=== PATIENT | female | born 1935 | race Caucasian/White ===

== ENCOUNTER 2022-10-26 15:34 | Outpatient (CLI) | payer MEDICARE, OTHER, SELFPAY ==
[2022-10-26 16:49] LABS: Vitamin D 25 Hydroxy 82.4 ng/mL
== END 2022-10-26 15:35 | disposition home or self-care (01) ==
PROVIDERS: PCP Family Medicine; Visit Provider Physician Assistant Medical
DX: E55.9 Vitamin D deficiency, unspecified (principal)
CPT/HCPCS: 36415; 82306

== ENCOUNTER 2023-03-27 07:32 | Outpatient (CLI) | payer MEDICARE, OTHER, SELFPAY ==
[2023-03-27 08:16] LABS: Alanine Aminotransferase 23 U/L (6-35); Albumin Level 4.5 g/dL (3.5-5.1); Alkaline Phosphatase 80 U/L (38-126); Anion Gap 9 mmol/L (8-16); Aspartate Amino Transferase 34 U/L (14-36); Bilirubin,Total 0.7 mg/dL (0.2-1.3); Blood Urea Nitrogen 14 mg/dL (7-17); Calcium 9.6 mg/dL (8.4-10.2); Carbon Dioxide 26 mmol/L (22-30); Chloride 102 mmol/L (98-107); Cholesterol 139 mg/dL (0-200); Estimated Glomerular Filt Rate 60; Glucose 105 mg/dL (65-110); HDL Direct 51 mg/dL; Potassium 3.8 mmol/L (3.4-5.0); Sodium 137 mmol/L (137-145); Triglycerides 150 mg/dL (<150)
[2023-03-27 08:28] LABS: LDL Cholesterol Direct 53 mg/dL
[2023-03-27 08:45] LABS: Vitamin D 25 Hydroxy 41.5 ng/mL
== END 2023-03-27 07:33 | disposition home or self-care (01) ==
PROVIDERS: PCP Family Medicine; Visit Provider Physician Assistant Medical
DX: E78.2 Mixed hyperlipidemia (principal); E55.9 Vitamin D deficiency, unspecified; F41.9 Anxiety disorder, unspecified
CPT/HCPCS: 36415; 80053; 80061; 82306; 84443

== ENCOUNTER 2023-05-06 07:34 | Emergency (ER) | payer MEDICARE, OTHER, SELFPAY ==
[2023-05-06 07:42] VITALS: BP 179/79; PULSE 118; RESP 16
[2023-05-06 07:43] VITALS: TEMP 36.9
--- NOTE | 2023-05-06 07:51 | ED.GIBLEED ---
HPI - GI Bleed General Chief complaint: GI Bleed Stated complaint: RECTAL BLEEDING X1D Time Seen by Provider: 05/06/23 07:38 History of Present Illness HPI Narrative: 87-year-old female presenting to the emergency department for evaluation of a bleeding hemorrhoid. Patient states she does have a history of bleeding hemorrhoids. Patient states she was doing some yd work yesterday and suspect this may have attributed to the exacerbation of the hemorrhoid. Patient denies any associated abdominal pain. Patient states that she did have a bowel movement that did show blood in the bowl and some blood on the stool. Patient states she does have a history of constipation. Patient has had previous surgical treatment of her hemorrhoids. Related Data Home Medications Medication Instructions Recorded Confirmed calcitriol 0.25 mcg capsule 0.25 mcg PO DAILY 09/11/22 04/30/23 pravastatin 20 mg tablet 20 mg PO DAILY 09/11/22 04/30/23 Allergies Allergy/AdvReac Type Severity Reaction Status Date / Time adhesive tape Allergy Severe Blister Verified 04/30/23 10:04 Review of Systems Review of Systems: All systems reviewed & are unremarkable except as noted in HPI and below PMFSH Past Medical History Medical History Anxiety GERD (gastroesophageal reflux disease) Surgical History Surgical History H/O hemorrhoidectomy History of tonsillectomy and adenoidectomy Hx of appendectomy Family History Family History Other Alcoholism Heart disease Hypertension Social History Social History Smoking status: Never smoker Second hand tobacco smoke exposure: No Alcohol intake: never Substance use: never Substance use type: does not use Lack of Transportation: No Lack of Food: Never True Current Housing: I Have Housing Concerned About Future Housing: No Difficulty Paying Gas/Electric Bills: No Difficulty Paying for Meds: No Currently Unemployed: No Education: High School Diploma/GED Difficulty w/ Childcare or Family Care: No Living arrangements: with family Occupation/Education: retired Gender identity (if verbalized by the patient): Female Sexual Orientation (if Verbalized by the Patient): Straight or Heterosexual Spiritual care concerns: No Agree to blood products: Yes Exam Narrative: APPEARANCE: Well appearing, no pain, no distress, well-nourished. HEAD: normocephalic, atraumatic. EYES: PERRLA/EOMI, conjunctivae clear. NOSE: Normal no drainage NECK: Supple. No adenopathy, no masses. RESPIRATORY: Airway patent, respirations nonlabored. Clear to auscultation bilaterally, no rales, rhonchi, wheezing. CARDIOVASCULAR: Regular rate and rhythm without murmurs rubs or gallops. ABDOMINAL: Soft, nontender, nondistended, normal bowel sounds Rectal exam: Non thrombosed external hemorrhoids, no fissure, no active bleeding, no hematochezia and no melena MUSCULOSKELETAL: Moves all extremities. Strength/ROM intact, No edema, No calf tenderness. NEURO: Alert. Cranial nerves II through XII intact. Grossly intact Course Course Emergency Course: 87-year-old female presents to the emergency department for evaluation of rectal bleeding. Upon arrival emergency department patient had no additional rectal bleeding. Physical exam patient did have external hemorrhoids that were nonthrombosed. Patient denies any abdominal pain patient had no tenderness to palpation. Patient is afebrile with no leukocytosis and a stable hemoglobin INR is 1.0 and patient has no acute abnormalities on her CMP. Patient does have a longstanding history of hemorrhoids. Patient was encouraged to follow outpatient hemorrhoid treatment and was encouraged to have close follow-up with GI. All questions and concer
[2023-05-06 08:22] LABS: Basophils Absolute Auto 0.1 K/mm3 (0.0-0.1); Basophils Percent Auto 0.7 % (0.2-1.2); Eosinophils Absolute Auto 0.1 K/mm3 (0-0.3); Eosinophils Percent Auto 1.5 % (0-4.4); Hematocrit 44.4 % (37.0-47.0); Hemoglobin 13.8 g/dL (12.0-15.0); Immature Granulocyte Absolute 0.03 K/mm3 (0.00-0.031); Immature Granulocyte Percent A 0.3 % (0-0.5); Lymphocytes Absolute Auto 2.46 K/mm3 (0.9-3.2); Mean Corpuscular HGB Conc 31.1 g/dl (32-36); Mean Corpuscular Hemoglobin 27.1 pg (26-34); Mean Corpuscular Volume 87.2 fl (80-100); Mean Platelet Volume 11.1 fl (7.4-10.4); Monocytes Absolute Auto 0.6 K/mm3 (0.1-0.6); Monocytes Percent Auto 6.8 % (2.6-8.5); Neutrophils Absolute Auto 5.5 K/mm3 (1.3-6.7); Neutrophils Percent Auto 62.7 % (45.5-73.1); Platelet Count Result 216 k/mm3 (150-375); Red Blood Count 5.09 M/mm3 (4.2-5.4); Red Cell Distribution Width 14.6 % (11.5-14.5); White Blood Count 8.8 K/mm3 (4.5-10.0)
[2023-05-06 08:31] LABS: Alanine Aminotransferase 25 U/L (6-35); Albumin Level 4.4 g/dL (3.5-5.1); Alkaline Phosphatase 92 U/L (38-126); Anion Gap 8 mmol/L (8-16); Aspartate Amino Transferase 34 U/L (14-36); Bilirubin,Total 0.7 mg/dL (0.2-1.3); Blood Urea Nitrogen 12 mg/dL (7-17); Calcium 9.4 mg/dL (8.4-10.2); Carbon Dioxide 24 mmol/L (22-30); Chloride 107 mmol/L (98-107); Estimated CRCL calculation 35 ml/min; Estimated Glomerular Filt Rate > 60; Glucose 118 mg/dL (65-110); Potassium 3.8 mmol/L (3.4-5.0); Sodium 139 mmol/L (137-145)
[2023-05-06 08:45] LABS: Partial Thromboplastin Time 25.1 SECONDS (22.3-36.8)
--- NOTE | 2023-05-06 09:05 | PC.NURSE ---
Patient ambulated to the restroom independently with her walker
[2023-05-06 09:13] VITALS: BP 140/62; PULSE 100; RESP 20; TEMP 36.6; O2SAT 99
== END 2023-05-06 09:20 | disposition home or self-care (01) ==
PROVIDERS: Emergency Provider Emergency Medicine; PCP Family Medicine
DX: K62.5 Hemorrhage of anus and rectum (principal); K64.9 Unspecified hemorrhoids; F41.9 Anxiety disorder, unspecified
CPT/HCPCS: 36415; 80053; 85025; 85610; 85730; 99283

== ENCOUNTER 2023-06-05 09:52 | Outpatient (CLI) | payer MEDICARE, OTHER, SELFPAY ==
--- NOTE | 2023-06-05 17:45 | WPDPFTINT ---
PFT Procedure Performed PFT Procedure Performed Spirometry with Pre/Post Bronchodilator Plethysmography (Lung Vol) Diffusing Cap (DLCO) Flow Vol Loop PFT Interpretation This is a pulmonary function test with pre and post-bronchodilator spirometry, plethysmography and diffusing capacity. The test was performed and results interpreted in accordance with the 2019 and 2005 ATS/ERS Task Force guidelines respectively using the Global Lung Function Initiative-2012 reference equations. Patient demonstrated good effort and cooperation. Reproducibility criteria were met. The quality of the pre bronchodilator spirometry maneuver was Grade A and post bronchodilator spirometry maneuver was Grade A. Findings: Spirometry: The contour the inspiratory and expiratory flow tracing are normal. The pre bronchodilator FVC is 2.33 L, 105% predicted. The pre bronchodilator FEV1 is 1.70 L, 101% predicted. The pre bronchodilator FEV1: FVC ratio 73%. The post bronchodilator FVC is 2.38 L, representing a 2% increase. The post bronchodilator FEV1 is 1.76 L, representing a 4% increase. The post bronchodilator FEV1: FVC ratio 74%. Plethysmography: The total lung capacity is 4.58 L, 97% predicted. The functional residual capacity is 1.70 L, 62% predicted. The residual volume is 1.68 L, 70% predicted. Diffusing capacity: The diffusing capacity unadjusted for hemoglobin and carboxyhemoglobin is 17.0, 95% predicted. The diffusing capacity adjusted for alveolar volume is 4.61, 111% predicted. Impression: The spirometry is normal without evidence of an obstructive abnormality. There is no significant improvement after inhaling a single dose of albuterol. The lung volumes are normal. The diffusing capacity is normal. There are no prior studies for comparison
== END 2023-06-05 09:53 | disposition home or self-care (01) ==
LOC: ANHPFT 09:53
PROVIDERS: PCP Family Medicine; Visit Provider Physician Assistant Medical
DX: R06.00 Dyspnea, unspecified (principal)
CPT/HCPCS: 94060; 94726; 94729

== ENCOUNTER 2023-09-26 07:22 | Outpatient (CLI) | payer MEDICARE, OTHER, SELFPAY ==
[2023-09-26 07:56] LABS: Cholesterol 132 mg/dL (0-200); HDL Direct 52 mg/dL; Triglycerides 134 mg/dL (<150)
[2023-09-26 08:06] LABS: LDL Cholesterol Direct 65 mg/dL
[2023-09-26 08:26] LABS: Vitamin D 25 Hydroxy 47.4 ng/mL
== END 2023-09-26 07:23 | disposition home or self-care (01) ==
LOC: ANHLAB 07:26
PROVIDERS: PCP Family Medicine; Visit Provider Physician Assistant Medical
DX: E55.9 Vitamin D deficiency, unspecified (principal); F41.9 Anxiety disorder, unspecified; I10 Essential (primary) hypertension; E78.2 Mixed hyperlipidemia
CPT/HCPCS: 36415; 80061; 82306

== ENCOUNTER 2024-01-11 11:51 | Emergency (ER) | payer MEDICARE, OTHER, SELFPAY ==
[2024-01-11 12:02] VITALS: BP 151/72; PULSE 89; RESP 19; TEMP 37.5; O2SAT 98
--- NOTE | 2024-01-11 12:06 | ED.URI ---
HPI - URI/Sore Throat General Chief Complaint: Upper Respiratory Infection Stated Complaint: Sinus/Headache Time Seen by Provider: 01/11/24 12:30 Source: patient and RN notes reviewed Mode of arrival: ambulatory Limitations: no limitations History of Present Illness HPI Narrative: 88-year-old female presents with concerns for headache, sinus pressure, sore throat and cough for 2 days. She has not taken anything [id number]. She has not taken her temperature. MD elicited complaint: cough and nasal congestion Related Data Home Medications Medication Instructions Recorded Confirmed calcitriol 0.25 mcg capsule 0.25 mcg PO DAILY 09/11/22 01/11/24 Allergies Allergy/AdvReac Type Severity Reaction Status Date / Time adhesive tape Allergy Severe Blister Verified 01/11/24 11:53 Review of Systems Review of Systems: CONSTITUTIONAL: Denies malaise, chills, sweats, or fever. EYES: Denies visual changes, redness, or discharge. ENT: Reports rhinorrhea, congestion, and sore throat. CARDIOVASCULAR: Denies chest pain, palpitations, or edema. RESPIRATORY: Reports cough. Denies dyspnea. GASTROINTESTINAL: Denies abdominal pain, nausea, vomiting, diarrhea SKIN: Denies rash or itching. MUSCULOSKELETAL: Denies myalgia. NEUROLOGIC: Reports headache. All systems reviewed & are unremarkable except as noted in HPI and below PMFSH Past Medical History Medical History Anxiety GERD (gastroesophageal reflux disease) Surgical History Surgical History H/O hemorrhoidectomy History of tonsillectomy and adenoidectomy Hx of appendectomy Family History Family History Other Alcoholism Heart disease Hypertension Social History Social History Smoking status: Never smoker Second hand tobacco smoke exposure: No Alcohol intake: never Substance use: never Substance use type: does not use Lack of Transportation: No Lack of Food: Never True Current Housing: I Have Housing Concerned About Future Housing: No Difficulty Paying Gas/Electric Bills: No Difficulty Paying for Meds: No Currently Unemployed: No Education: High School Diploma/GED Difficulty w/ Childcare or Family Care: No Living arrangements: with family Occupation/Education: retired Gender identity (if verbalized by the patient): Female Sexual Orientation (if Verbalized by the Patient): Straight or Heterosexual Spiritual care concerns: No Agree to blood products: Yes Comments At time of signature, agree with nursing past medical, surgical, social and family history. There is no relevant family history pertinent to the presenting complaint Exam Narrative: GENERAL: Well-appearing, well-nourished, and in no acute distress. HEAD: Normocephalic EYES: PERRLA, conjunctivae clear ENT: Nares clear, turbinates edematous and erythematous, clear discharge. Mucous membranes moist. TM pearly zepeda with dull light reflex bilaterally; no tragal tenderness. Oropharynx not erythematous without lesions. Tonsils not enlarged and without exudate, no drooling, no hoarseness, no trismus, uvula midline. NECK: Supple. No lymphadenopathy CHEST: Clear to auscultation, breath sounds equal. No wheezing, rhonchi, rales, or stridor. No respiratory distress, speaks in full sentences. HEART: Regular rate and rhythm. No murmur heard. SKIN: Warm, dry, no rash. NEURO: Alert and oriented x3. PSYCH: Normal mood and affect Course Course Emergency Course: Patient is aware of diagnosis, understands and agrees to treatment plan. Anticipatory guidance given. Patient agrees to follow-up as directed and is aware of reasons to seek care at the emergency department. Portions of this record may have been created with selam
[2024-01-11 12:25] LABS: EDSTREPNEGPOS1 Negative (Negative)
[2024-01-11 12:41] LABS: EDCOVIDSCREEN Positive (Negative); EDINFLUASCREEN Negative (Negative); EDINFLUBSCREEN Negative (Negative)
== END 2024-01-11 12:45 | disposition home or self-care (01) ==
PROVIDERS: Emergency Provider Nurse Practitioner; PCP Family Medicine
DX: U07.1 COVID-19 (principal)
CPT/HCPCS: 87081; 87426; 87804; 87880; 99213; G0463

== ENCOUNTER 2024-02-17 09:45 | Outpatient (CLI) | payer MEDICARE, OTHER, SELFPAY ==
--- NOTE | ~2024-02-17 | DEXA_ITS ---
Bone Density Report Name: ARTURO BOWEN Age: 88 Sex: Female Ethnicity: White Date of : 1935 Indication: postmenopausal; screening for osteoporosis; Referring Provider: ASHLY, CARTER [place] Study: Bone densitometry was performed. Exam Date: February 17, 2024 Accession number: [id number] Bone Density: Region BMD T-score Z-score Classification AP Spine(L1-L4) 0.924 -1.1 1.8 Osteopenia Femoral Neck (Left) 0.553 -2.7 -0.1 Osteoporosis Total Hip (Left) 0.733 -1.7 0.6 Osteopenia Femoral Neck (Right) 0.574 -2.5 0.0 Osteoporosis Total Hip (Right) 0.729 -1.7 0.6 Osteopenia Total Hip Mean 0.731 -1.7 0.6 Osteopenia World Health Organization criteria for BMD impression classify patients as: Normal (T-score at or above -1.0), Osteopenia (T-score between -1.0 and -2.5), or Osteoporosis (T-score at or below -2.5). 10-year Fracture Risk: FRAX not reported because: Some T-score for Spine Total or Hip Total or Femoral Neck at or below -2.5 Clinical Information Provided by Patient: Has used the following medications: Vitamin D, Calcium Patient maximum height was 62.0 No regular weight bearing exercise Drinks caffeinated beverages Onset of menses at age 14 Number of children 2 Impression: The patient has osteoporosis, based on the Left Femoral Neck T-score. Discussion: INCREASED RISK OF FRACTURE. BONE DENSITY IS UNDESIRABLY LOW AT ONE OR MORE SKELETAL SITES, CONSISTENT WITH POSTMENOPAUSAL OSTEOPOROSIS. This patient's lowest T-score meets the World Health Organization's (WHO) criteria for osteoporosis at one or more sites (T-score -2.5 or below). In untreated patients, the risk of osteoporotic fracture increases approximately two-fold for each 1.0 SD decrease in T-score. Low bone density is not the only risk factor for fracture; also consider factors such as patient's age, frailty or poor health, risk of falling, risk of injury, previous osteoporotic fracture, family history of osteoporosis, cigarette smoking, low body weight, etc. Not everyone with low bone mineral density has osteoporosis; osteomalacia and other metabolic bone disorders should also be considered. Patients who have osteoporosis should be evaluated for specific diseases and conditions (secondary causes) that may cause or contribute to bone loss. The [place] Association of Clinical Endocrinologists (AACE) and National Osteoporosis Foundation (NOF) recommend pharmacologic intervention for all postmenopausal women whose T-score is in this range. The patient should follow a healthful lifestyle (good nutrition with adequate calcium and vitamin D, and appropriate weight-bearing exercise). Follow-Up: Consider a repeat BMD and Vertebral Fracture Assessment (VFA) exam in 2 years or sooner if medically necessary, to reassess this patient's status. Reported by: REYES on 02/17/2024 10:25:00 AM. Reviewed, dictated and finalized at location A. HAROON
== END 2024-02-17 09:46 | disposition home or self-care (01) ==
LOC: ANHIMG 09:47
PROVIDERS: PCP Family Medicine; Visit Provider Physician Assistant Medical
DX: N95.1 Menopausal and female climacteric states (principal); M81.0 Age-related osteoporosis without current pathological fracture; M85.89 Other specified disorders of bone density and structure, multiple sites
CPT/HCPCS: 77080

== ENCOUNTER 2024-06-12 07:49 | Outpatient (CLI) | payer MEDICARE, OTHER, SELFPAY ==
--- OUTSIDE RECORDS SUMMARY | 2024-06-12 07:55 | XMS_ITS | Referral Summary ---
Author Organization [facility] [address] Address [address] [place] [address] Care Team Providers Care Office Cleaner Name Role Phone Alisia Cotto MD Primary Care Provide r Allergies Active Allergy Reactions Criticality Noted Date Comments Penicillin Hives High 04/10/2022 Medications calcitRIOL (ROCALTROL) 0.25 mcg capsule TAKE 1 CAPSULE BY MOUTH EVERY DAY FOR 90 DAYS 3 Active cetirizine (ZyrTEC) 10 mg tablet Take 1 tablet (10 mg total) by mouth daily 3 Active clonazePAM (KlonoPIN) 1 mg tablet Take by mouth 2 (two) times a day as needed 3 Active dilTIAZem CD 120 mg 24 hr capsule Take by mouth daily 3 Active ergocalciferol (VITAMIN D) 50,000 unit capsule TAKE 1 CAPSULE BY MOUTH ONCE A WEEK FOR 90 DAYS 3 Active furosemide (LASIX) 20 mg tablet Take 1 tablet (20 mg total) by mouth daily 3 Active losartan (COZAAR) 50 mg tablet Take 1 tablet (50 mg total) by mouth daily 3 Active meclizine (ANTIVERT) 25 mg tablet TAKE 1 TABLET BY MOUTH EVERY DAY NEEDED FOR 90 DAYS [address] (PROTONIX) 40 mg EC tablet pantoprazole 40 mg tablet,delayed release (DR/EC) 0 Active Klor-Con M10 10 mEq CR tablet Take 2 tablet/capsule (20 mEq total) by mouth daily 3 Active pravastatin (PRAVACHOL) 20 mg tablet Take 1 tablet (20 mg total) by mouth daily 3 Active Active Problems Problem Noted Date Diagnosed Date Balance problem 07/16/2022 Sensorineural hearing loss (SNHL) of both ears 0 07/16/2022 Social History Tobacco Use Types Packs/Day Years Used Date Smoking Tobacco: Never Smokeless Tobacco: Never Tobacco Cessation:Counseling Given: Not Answered Comments Unknown Sex and Gender Information Value Date Recorded Sex Assigned at Not on file Legal Sex Female 10:13 AM CDT Gender Identity Not on file Sexual Orientation Not on file Last Filed Vital Signs Vital Sign Reading Time Taken Comments Blood Pressure - - Pulse - - Temperature - - Respiratory Rate 18 07/16/2022 1:16 PM CDT Oxygen Saturation - - Inhaled Oxygen Concentration - - Weight 56.7 kg (125 lb) 07/16/2022 1:16 PM CDT Height 154.9 cm (5' 1 ) 07/16/2022 1:16 PM CDT Body Mass Index 23.62 07/16/2022 1:16 PM CDT Plan of Treatment Not on file Insurance MEDICARE Care Teams Office Cleaner Relationship Specialty Start Date End Date Alisia Cotto MD [address] [address] PCP - General Internal Medicine 07/04/22
--- OUTSIDE RECORDS SUMMARY | 2024-06-12 07:55 | XMS_ITS | Patient Health Record ---
Author Organization [facility] Billing Info Address [address] [place] [address] [place] [address] Care Team Providers Care Community Health Advocate Name Role Phone RADHA BARBARA Primary Care Provider [phone] Allergies Allergen (clinical drug ingredient) Drug/Non Drug Allergy documented on EMR Reaction Allergy Type Onset Date Status Penicillin intolerance Drug Allergy Acti ve Reason For Referral No Information Medications Medication SIG (Take, Route, Frequency, Duration) Notes Start Date End Date Status Klor-Con 10 10 MEQ 1 tab(s) Orally TID for 90 days Active Pravastatin Sodium 20 MG 1 tablet Orally QD for 90 days Active Losartan Potassium 50 MG 1 tablet Orally QD for 30 days Active Vitamin D3 5000 UNIT 1 tablet Orally QD Active Chlorthalidone 25 MG 1 tab(s) Orally QD for 90 days Active Clonazepam 1 MG 1 tablet Orally BID prn anxiety for 30 days Active Spironolactone 25 MG 0.5 tablet Orally Q D for 90 days Active Fish Oil 1 cap QD Active CoQ-10 1 tab QD Active Vitamin B-12 5000 MCG 1 tablet Orally QD Active Multivitamin 1 tab QD Active Diltiazem HCl ER Coated Beads 120 MG TAKE ONE CAPSULE BY MOUTH EVERY DAY for 30 Active Valacyclovir HCl 500 MG 1 tab Orally BID PRN cold sore for 30 days Active Social History Tobacco Use: Social History Observation Description Date Details (start date - stop date) Never Smoker NA - NA Tobacco Status: Question Answer Notes Patient is a never smoker Problems Problem Type SNOMED Code ICD Code Onset Dates Problem Status W/U Status Risk Notes Problem 179344458 Mixed hyperlipidemia (E78.2) Active confirmed Problem 21356883 Essential hypertension (I10) Active confirmed Problem 087621159 Dyslipidemia (E78.5) Active confirmed Problem Long-term current use of drug therapy (384922189) Encounter for long-term current use of medication (Z79.899) Active confirmed Problem 821487517 Chronic anxiety (F41.9) Active confirmed Problem 866327164 Primary osteoarthritis involving multiple joints (M15.0) Active confirmed Problem 711220338 BMI 26.0-26.9,adult (Z68.26) Active confirmed Plan Of Treatment No Information Insurance Providers Payer Name Payer Address Payer Phone Subscriber Number Group Number Insured Name Patient Relationship to Insured Coverage Start Date Coverage End Date [place] [address] [address] [place], [place] [id number] Saskia Randle Self - patient is the insured 3 8 AETNA NON HMO [address] [place], [place] [id number] Saskia Randle Self - patient is the insured 7 8 Medical (General) History Medical History History ICD Code Primary osteoarthritis involving multipl e joints Mixed hyperlipidemia Essential (primary) hypertension Generalized anxiety disorder Surgical History Surgery Date(Month/Year) appendectomy 1950 tonsillectomy 1950 hemorrhoidectomy Hardware placed in cervial spine 2002
--- OUTSIDE RECORDS SUMMARY | 2024-06-12 07:55 | XMS_ITS | Patient Health Record ---
Author Organization [facility] Address [address] [facility] [address] [facility] [address] [place] [address] REASON FOR REFERRAL No Information MEDICATIONS Medication SIG (Take, Route, Fr equency, Duration) Notes Start Date End Date Status Protonix 40 MG 1 tablet Orally Once a day for 90 days 02/09/2022 Active Meclizine HCl 25 MG 1 tablet as needed O rally once a day for 90 days 02/09/2022 Active Calcitriol 0.25 MCG TAKE 1 CAPSULE BY MO [facility] EVERY DAY for 90 Active SOCIAL HISTORY Sex Assigned At : Social History Observation Description Sex Assigned At Female PROBLEMS Problem Type ICD Code Onset Dates Problem Status W/U Status Risk SNOMED Code Notes Problem Hyperlipidemia, unspecified (E78.5) Active confirmed Hyperlipidemia (40034608) Problem Essential (primary) hypertension (I10) Active confirmed Essential hypertension (71197014) Problem Chronic kidney disease, stage 2 (mild) (N18.2) Active confirmed Chronic kidne y disease stage 2 (944011925) Problem Renal osteodystrophy (N25.0) Active confirmed Renal osteodystrophy (41213062) PLAN OF TREATMENT No Information
--- OUTSIDE RECORDS SUMMARY | 2024-06-12 07:55 | XMS_ITS | Data Portability ---
Author Organization [facility], [facility], [place] Address [address] [place] [address] Assessment No assessment recorded. Plan of Treatment Reminders Order Date Submit Date Provider Last Modified By Organization Details Last Modified Time Details Appointments None record ed. Lab None record ed. Referral None record ed. Procedures None record ed. Surgeries None record ed. Imaging None record ed. Medication Orders None record ed. Patient TargetsNo targets recorded. Patient InstructionsNo instructions recorded. Reason for Referral None Reported. Procedures Surgical History Date Name Laterality Status Provider Name and Address Organization Details Recorded Time 03/03/20 19 STATION ENGINEER Voice Treatment - E completed Talisha Pena MA, [address], [address], [place] - [facility], [facility] 03/05/2019 17:57:42 02/19/20 19 STATION ENGINEER Voice Treatment - D completed Talisha Pena MA, [address], [address], [facility] - [facility], [facility] 02/22/2019 15:00:17 02/12/20 19 STATION ENGINEER Voice Treatment - C completed Talisha Pena MA, [address], [address], [place] - [facility], [facility] 02/22/2019 14:55:26 02/04/20 19 STATION ENGINEER Voice Treatment - B completed Talisha Pena MA, [address], [address], [place] - [facility], [facility] 02/22/2019 14:50:59 01/23/20 19 STATION ENGINEER Voice Treatment - B completed Talisha Pena MA, [address], [address], [place] - [facility], [facility] 02/22/2019 14:45:55 01/15/20 19 STATION ENGINEER Voice Treatment - A completed Talisha Pena MA, [facility]STATION ENGINEER [address] [place] [address], [address], [facility] [place] [facility], [facility] 02/22/2019 14:41:32 12/18/19 19 STATION ENGINEER Perceptual Voice Evaluation completed Talisha Pena MA, [address], [address], [facility] [place] [facility], [facility] 12/19/2018 11:29:43 12/18/19 19 STATION ENGINEER Videostroboscopy Exam completed Talisha Pena MA, [address], [address], [facility] [place] [facility], [facility] 12/19/2018 11:31:52 12/12/19 19 Fiberoptic Laryngoscopy (Comprehensive) completed [facility], [facility] 12/11/2018 14:26:12 Imaging Results None recorded. Procedure Notes None recorded. Medical Equipment None Reported. Allergies Allergen ID Allergen Name Allergen Category Reaction Reaction Severity Criticality Documentation Date Start Date Code Code System Note Provider Name and Address Organization Details Recorded Time 335293 Product containin g penicilli n (product) medicatio n Not available Not available Not available 12/11/2018 97228 8001 SNOMED Not Available Not Available Not Available Medications Name Sig Start Date Stop Date Status Note LastModified by Organization Details LastModified Time losartan 50 mg tablet active Not Available Not Available Not Available azithromycin 250 mg tablet active Not Available Not Available Not Available ranitidine 300 mg tablet active Not Available Not Available Not Available simvastatin 10 mg tablet active Not Available Not Available Not Available clonazepam 1 mg tablet active Not Available Not Available Not Available chlorthalidone 25 mg tablet active Not Available Not Available No t Available valacyclovir 500 mg tablet active Not Available Not Available Not Available spironolactone 25 mg tablet active Not Available Not Available No t Available benzonatate 100 mg capsule active Not Available Not Available Not Available cephalexin 500 mg capsule active Not Available Not Available Not Available diltiazem CD 120 mg capsule,extended release 24 hr active Not Available Not Availabl e Not Available pravastatin 20 mg tablet active Not Available Not Available Not Available methylprednisolone 4 mg tablets in a dose pack active Not Available Not Available No t Available fluticasone propionate 50 mcg/actuation nasal spray,suspension active Not Available Not Avail able Not Available Klor-Con M10 mEq tablet,extended release active Not Available Not Available Not Available Vitals None Recorded Social History Question Answer Notes LastModified by Organizat ion Details LastModified Time Tobacco Smoking Status Never Smoker [facility] - [facility], [facility] 12/11/2018 14:13:14 What Is Your Level Of Alcohol Consumption? None [email or web address] Information not available 12/11/2018 Sex: Unknown Functional Status None recorded. Mental Status None recorded. Family History Nothing Reported. Medical History Condition Response Heart Disease/Disorder (NC, CAD) N Anxiety/Depression N Anemia/Bleeding disorders N Tonsil problems N Vision Problems (Glaucoma/Cataracts) N Nasal/Sinus Problems N Thyroid Problems N COPD/Emphysema/Lung Disorder N Ear Infections N GI Problems N Stroke-TIA N Transfusion(s)/Transplant(s) N MRSA exposure N Kidney Disease/Disorder N Anesthesia Complications N Headaches/Migraines N Reflux (GERD) N Diabetes N Behavior disorders (ADD/ADHD) N Arthritis N Hearing Loss N Seizures/Epilepsy N Other PMH N Cancer N Tinnitus N Meniere's N Asthma N Alzheimer's/Dementia N Blood Diseases (Hepatitis/TB/HIV) N Mental Disorder/Illness N High Cholesterol N Sleep Disorder N Liver Disease N Fibromyalgia N Hypertension N Allergies/Immune disorder N Speech Delay N Pneumonia/PE/Bronchitis N Gynecological HistoryNo gynecological history recorded. Obstetrics History GPAL:G 0 P 0 0 0 0 Past Encounters Encounter ID Performer Location Encounter Start Date Encounter Closed Date Diagnosis/Indication Diagnosis SNOMED-CT Code Diagnosis ICD10 Code Diagnosis Note [id number] [facility] [place] [address] [place] [address] 12/11/2018 13:18:03 12/11/2018 19:17:32 Chronic hoarseness 8869276179 105 R49.0 Saskia is here with hoarseness . This has appeared in the last year. She is having no trouble with swallowing . 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 We discussed speech therapy. i do not feel she is a candidate for vocal cord injection at this time. there are no masses or vocal nodules or polyps. 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 0 5707129 J38.7 [id number] [facility] [place] [address] [place] [address] 12/17/2018 13:41:54 12/23/2018 11:20:57 On examination - dysphonia 260000429 R49.0 Bowing of vocal cord 232 025541 J38.3 [id number] Talisha Pena MA, [facility] [address] [place] [address] 01/14/2019 10:35:26 02/23/2019 18:45:40 On examination - dysphonia 895508773 R49.0 Bowing of vocal cord 232 190747 J38.3 [id number] Talisha Pena MA, [facility] [address] [place] [address] 01/22/2019 10:41:12 02/23/2019 18:46:13 On examination - dysphonia 529883421 R49.0 Bowing of vocal cord 232 168059 J38.3 [id number] Talisha Pena MA, [place] [address] [place] [address] 02/03/2019 10:52:02 02/23/2019 18:46:39 On examination - dysphonia 495816119 R49.0 Bowing of vocal cord 232 073300 J38.3 [id number] Talisha Pena MA, [facility] [address] [place] [address] 02/11/2019 11:43:28 02/23/2019 18:47:03 On examination - dysphonia 816669178 R49.0 Bowing of vocal cord 232 417362 J38.3 [id number] Talisha Pena MA, [facility] [address] [place] [address] 02/18/2019 10:41:49 02/23/2019 18:47:33 On examination - dysphonia 994954992 R49.0 Bowing of vocal cord 232 455120 J38.3 [id number] Talisha Pena MA, [facility] [address] [place] [address] 03/03/2019 11:41:05 03/09/2019 17:34:11 On examination - dysphonia 557658642 R49.0 Bowing of vocal cord 232 430230 J38.3 Health Concerns Section Related Observation LastModified by Organization Detai ls LastModified Time None Recorded Concern Status LastModified by Organization Details LastModified Time None Recorded Advance Directives Directive None Recorded Payers Encounter Date Sequence Insurance Name Policy Number Policy Cooney Covered Member ID Cooney Member ID Guarantor Name 01/22/2019 1 [place] Saskia Randle [id number] Saskia Boyd Randle 01/22/2019 2 [employer] [id number] Saskia Boyd Randle [id number] Saskia Boyd Randle 02/03/2019 1 [place] Saskia Boyd Randle [id number] Saskia Boyd Randle 02/03/2019 2 [employer]ETNA [id number] Saskia Randle [id number] Saskia Boyd Randle 02/11/2019 1 [place] Saskia Randle [id number] Saskia Boyd Randle 02/11/2019 2 [employer] [id number] Saskia Boyd Randle [id number] Saskia Boyd Randle 02/18/2019 1 [place] Saskia Boyd Randle [id number] Saskia Boyd Randle 02/18/2019 2 [employer] [id number] Saskia Boyd Randle [id number] Saskia Boyd Randle 03/03/2019 1 [place] Saskia Randle [id number] Saskia Boyd Randle 03/03/2019 2 [employer]ET[employer] [id number] Saskia Boyd Randle [id number] Saskia Randle OBGyn Episode No OBEpisode recorded.
--- OUTSIDE RECORDS SUMMARY | 2024-06-12 07:55 | XMS_ITS | Clinical Summary ---
Author Organization [facility] [address] Address [address] [place] [address] Care Team Providers Care Brush Sander Name Role Phone Alisia Cotto MD Primary [...] loss (SNHL) of both ears 0 07/16/2022 Surgical History Surgery Date Site/Laterality Comments APPENDECTOMY 04/01/1949 - 03/31/1950 TONSILLECTOMY 04/01/1950 - 03/31/1951 Bilateral HEMORROIDECTOMY 04/01/1973 - 03/31/1974 Medical History Medical History Date Comments Hypertension Family History Medical History Relation Name Comments Cancer Brother Heart disease Father Relation Name Status Comments Brother Father Social History Tobacco Use Types Packs/Day Years Used Date Smoking Tobacco: Never Smokeless Tobacco: Never Tobacco Cessation:Counseling Given: Not Answered Comments Unknown Sex and Gender Information Value Date Recorded Sex Assigned at Not on file Legal Sex Female 10:13 AM CDT Gender Identity Not on file Sexual Orientation Not on file Obstetrics History Last Filed Vital Signs Vital Sign Reading [...] 07/16/2022 1:16 PM CDT Plan of Treatment Health Maintenance Due Date Last Done Comments Depression Screening 1935 Fall Risk Assessment 1935 DTaP/Tdap/Td Vaccine (1 - Tdap) 1946 Hepatitis B Screening 09/22/1955 Well Visit 65+ 2002 Zoster Vaccine (2 of 2) 03/15/2022 01/18/2022 Covid-19 Vaccine (5 - 2023-2 5 season) 2023 09/12/2021, 09/12/2021, 05/15/2021, Additional history exists Influenza Vaccine (#1) 2023 01/10/2022 Pneumococcal vaccine 65+ Completed 01/10/2022 Insurance [facility] MEDICARE Care Teams Brush Sander Relationship Specialty Start Date End Date Alisia Cotto MD [address] [place] [address] PCP - General Internal Medicine 07/04/22
--- OUTSIDE RECORDS SUMMARY | 2024-06-12 07:55 | XMS_ITS | CONTINUITY OF CARE DOCUMENT ---
Author Name shantanu fournier Address Unknown Organization [facility] Address [address] [facility] [address] [place] [address] Phone [phone] Care Team Providers Care Supervisor Winding Department Name Role Phone Titus PELAEZ, Gloria Unavailable [phone] DOROTEO VALDES MD Unavailable [phone] DOROTEO VALDES MD Unavailable [phone] PROBLEMS Condition Status Date Provider Notes Hyperlipidemia active Alan Ahmedzai Essential hypertension active Alan Ahmedzai CKD active Alan Ahmedzai Hypothyroidism active Alan Ahmedzai Leg edema, bilateral active Alan Ahmedzai Shortness of breath active Alan Ahmedzai ENCOUNTERS Date Type Provider Location Encounter Diagnosis - In-person encounter Office Visit Gloria Qureshi MD [place] [facility] Shortness of breath VITAL SIGNS Date Observation Value Provider Body Mass Index (Ratio) 25.51 kg/m2 Fuad Qureshi MD blood pressure, diastolic 73 mm[Hg] [facility] Block blood pressure, systolic 140 mm[Hg] Gigi Block oxygen saturation, oximetry 99 % Jayla Block pulse rate 83 /min Jayla Block respiratory rate E&M 16 /min Jayla Rizzo phi height E&M 61 [in_i] Jayla Block weight E&M 135 [lb_av] Jayla Block ALLERGIES Allergy Name Onset Date Reaction Criticality Status PENICILLIN High Criticality active HISTORY OF MEDICATION USE Medication Status Instructions Dates Provider Indications Com marilyn Arellano M10 10 mEq tablet,ER particles/crystals active Jayla Block furosemide 20 mg tablet active Jayla Block meclizine 25 mg tablet active Jayla Block pantoprazole 40 mg tablet,delayed release (DR/EC) active Jayla Blokc pravastatin 20 mg tablet active Jayla Block calcitriol 0.25 mcg capsule active Jayla Block ergocalciferol (vitamin D2) 1,250 mcg (50,000 unit) capsule active Jayla Block clonazepam 1 mg tablet active Jayla Block diltiazem HCl 120 mg capsule,extended release 24hr active Jayla Block losartan 50 mg tablet active Jayla Block SOCIAL HISTORY Date Observation Value Provider social history E&M S moking History: P atrobby has never smoked. Alan Amaya passive cigarette smoke exposure no Jayla Block chewing tobacco use Never Jayla Murphy vis smoking status Never smoker Jayla Block social history reviewed E&M revi ewed - no changes required Alan Amaya INSURANCE PROVIDERS Payer name Policy type / Coverage type [place] red green party ID [employer] Choice Pos II [employer]al[employer] K.K insurance Tremor Video [id number] [place] MEDIC[place] Medicare [id number] ADVANCE DIRECTIVES Name Date DISCUSSED - NO DECISION MADE TREATMENT PLAN Date Name Performer [id number],SAlan i [id number],SAlan i [id number],SAlan i [id number],SAlan i [id number],SAlan i [id number],SAlan i Cardiology Alan Amaya Cardiology Alan Amaya Cardiology Alan Greeni Cardiology Alan Branchmedzai Cardiology Alan Branchmedhowie Cardiology Alan rene Date Name Venous Doppler Bilat eral LE - Reflux Stress Regadenoson Complete Echo Venous Doppler Bilat eral LE - Reflux HISTORY OF PROCEDURES Procedure Date Procedure Name Provider Procedure Notes S tatus EKG Gloria Qureshi MD completed
[2024-06-12 08:15] LABS: Alanine Aminotransferase 21 U/L (6-35); Albumin Level 4.3 g/dL (3.5-5.1); Alkaline Phosphatase 86 U/L (38-126); Anion Gap 8 mmol/L (4-12); Aspartate Amino Transferase 27 U/L (14-36); Bilirubin,Total 0.6 mg/dL (0.2-1.3); Blood Urea Nitrogen 14 mg/dL (7-17); Carbon Dioxide 29 mmol/L (22-30); Chloride 101 mmol/L (98-107); Cholesterol 133 mg/dL (0-200); Estimated Glomerular Filt Rate 52; Glucose 97 mg/dL (65-110); HDL Direct 47 mg/dL; Potassium 3.8 mmol/L (3.4-5.0); Sodium 138 mmol/L (137-145); Triglycerides 206 mg/dL (<150)
[2024-06-12 08:26] LABS: LDL Cholesterol Direct 52 mg/dL
== END 2024-06-12 07:50 | disposition home or self-care (01) ==
PROVIDERS: PCP Family Medicine; Visit Provider Student in an Organized Health Care Education/Training Program
DX: E78.5 Hyperlipidemia, unspecified (principal); I10 Essential (primary) hypertension
CPT/HCPCS: 36415; 80053; 80061

== ENCOUNTER 2024-09-11 12:09 | Outpatient (CLI) | payer MEDICARE, OTHER, SELFPAY ==
--- OUTSIDE RECORDS SUMMARY | 2024-09-11 12:13 | XMS_ITS | Referral Summary ---
Author Organization [facility] [address] Address [address] [place] [address] Care Team Providers Care Research Attorney Name Role Phone Alisia Cotto MD Primary [...] 1:16 PM CDT Height 154.9 cm (5' 1) 07/16/2022 1:16 PM CDT Body Mass Index 23.62 07/16/2022 1:16 PM CDT Plan of Treatment Not on file Insurance MEDICARE Care Teams Research Attorney Relationship Specialty Start Date End Date Alisia Cotto MD [address] [address] PCP - General Internal Medicine 07/04/22
--- OUTSIDE RECORDS SUMMARY | 2024-09-11 12:13 | XMS_ITS | Clinical Summary ---
Author Organization [facility] [address] [place] [address] Care Team Providers Care Candy Spreader Name Role Phone Alisia Cotto MD Primary [...] 09/12/2021, 05/15/2021, Additional history exists Influenza Vaccine (Season Ended) 2024 01/11/20 Pneumococcal vaccine 65+ Completed 01/10/2022 Insurance [facility] MEDICARE Care Teams Candy Spreader Relationship Specialty Start Date End Date Alisia Cotto MD [address] [place] [address] PCP - General Internal Medicine 07/04/22
--- OUTSIDE RECORDS SUMMARY | 2024-09-11 12:13 | XMS_ITS | Continuity of Care Document ---
Author Organization [facility] Address [address] [place] [address] Phone Care Team Providers Care Family Therapist Name Role Phone Unavailable Unavailable Unavailable Allergies, Adverse Reactions, Alerts Substance Reaction Status Criticality Penicillins itching Active No Information Medications Medication Instructions Dosage Effective Dates (start - stop) Status Comments losartan-hydrochlorothia zide 50 mg-12.5 mg tablet 1 tablet daily - Active Thera Tears 0.25 % drops in a dropperette 1 gtt ou QID and prn - Active Diltia XT 120 mg capsule, extended release take 1 capsule by oral route every day - Active CLONAZEPAM 1 mg ORAL TABLET take 1 tablet by oral route in AM and 1/2 tab at HS - Active cholecalciferol (vitamin D3) 5,000 unit capsule daily - Active B Complex 100 100 mg-2 mg-100 mg-2mg-2mg/mL Injectable Solution 1 daily - Active CALCIUM CARBONATE/VITAMIN D3 600 mg calcium (1,500 mg)-800 unit ORAL T daily - Active Procedures Procedure Date <content [...] Diagnoses Date Provider Providers Copied on Encounter [facility], [address], [place], [place], [address], [place] tel:[phone] [facility] visual field and recheck (chief complaint) Ptosis Of Eyelid Nos 5 No Information [facility], [address], [place], [place], [address], [place] tel:[phone] [facility] Visual field and lid evaluation (chief complaint) Ptosis Of Eyelid NosLens Replacement Nec 4 No Information [facility], [address], [place], [place], [address], [place] tel:[phone] [facility] No Information 4 No Information [facility], [address], [place], [place], [address], [place] tel:[phone] [facility] No Information 4 No Information [facility], [address], [place], [place], [address], [place] tel:[phone] [facility] No Information 4 No Information [facility], [address], [place], [place], [address], [place] tel:[phone] [facility] No Information 4 No Information [facility], [address], [place], [place], [address], [place] tel:[phone] [facility] No Information 4 No Information [facility], [address], [place], [place], [address], [place] tel:[phone] [facility] No Information 4 No Information [facility], [address], [place], [address], [place] tel:[phone] [facility] Ptosis Of Eyelid Nos 4 No Information [facility], [address], [place], [place], [address], [place] tel:[phone] [facility] No Information 4 No Information [facility], [address], [place], [place], [address], [place] tel:[phone] [facility] Lens Replacement Nec 4 No Information Offic/outpt [facility], [address], [place], [place], [address], [place] tel:[phone] [facility] Ptosis Of Eyelid Nos 4 Anabell Klein. [address], [place], [address], [place]. tel:[phone] Referring Provider: Latoya Rodas, [address], [place], [address]. tel:[phone] Family History Family Member Type Diagnosis Age At Onset Half brother (M) Problem (finding) Heart disease Payers Payer name Insurance type Covered libertarian ID Authoriza tion(s) [place] [id number] [employer] Open Access Plus CI [id number] Social History Type Description Quantity Date Captured [...] have levatror repair OU on 06/23/[address] [facility]. Related to Ptosis Of Eyelid Nos [...] Related to Ptosis Of Eyelid Nos - I am going to orde r [...] surgery. Related to Ptosis Of Eyelid Nos - Stable. Related to Lens Replacement Nec Assessments Type Assessment Date No Information Patient Care Teams Name Effective Dates (start - stop) Status Members No Information
--- OUTSIDE RECORDS SUMMARY | 2024-09-11 12:14 | XMS_ITS | Patient Health Record ---
Author Organization [facility] Billing Info Address [address] [place] [address] [place] [id number] Care Team Providers Care Continuous Miner Operator Name Role Phone RADHA BARBARA Primary Care Provider Allergies Allergen (clinical drug ingredient) Drug/Non Drug [...] Problem Status W/U Status Risk Notes Problem 481029533 Mixed hyperlipidemia (E78.2) Active confirmed Problem 61954476 Essential hypertension (I10) Active confirmed Problem 173225160 Dyslipidemia (E78.5) Active confirmed Problem Encounter for long-term current use of medication (Z79.899) Active confirmed Problem 554035613 Chronic anxiety (F41.9) Active confirmed Problem 737111998 Primary osteoarthritis involving multiple joints (M15.0) Active confirmed Problem 870184645 BMI 26.0-26.9,ad ult (Z68.26) Active confirmed Plan Of Treatment No Information Insurance Providers Payer Name Payer Address Payer Phone Subscriber Number Group Number Insured Name Patient Relationship to Insured Coverage Start Date Coverage End Date [place] [address] [address] [place], [place] [id number] Saskia Randle Self - patient is the insured 3 8 [employer] NON HMO [address] [place], [place] [id number] Saskia Randle Self - patient is the insured 7 8 Medical (General) History Medical History History ICD Code Primary osteoarthritis involving multipl e joints Mixed hyperlipidemia Essential (primary) hypertension Generalized anxiety disorder Surgical History Surgery Date(Month/Year) Hardware placed in cervial spine 2002 hemorrhoidectomy tonsillectomy 1950 appendectomy 1950
--- OUTSIDE RECORDS SUMMARY | 2024-09-11 12:14 | XMS_ITS | Data Portability ---
Author Organization [facility] [place], Main Office Address [address] [place] [address] Care Team Providers Care Aerospace Project Manager Name Role Phone SYLVESTER COTTO Primary Care Provider [phone] SYLVESTER COTTO Referring Provider Assessment Encounter Date Assessment Date Assessment LastModified by Organization Details LastModified Time 07/17/2022 07/17/2022 04/17/2022: VIT D/CBC WNL FT4/TSH WNL TG 165 CMP: Alb 4.5H, TP WNL [email or web address] Not available 07/17/2022 10:01:10 08/14/2022 08/14/2022 This note is dictated and transcribed by [employer]. Timber Watchman variances may occur. Despite proofreading, typographical errors may occur. [email or web address] Not available 08/14/2022 12:03:05 Plan of Treatment Reminders Order Date Submit Date Provider Last Modified By Organization Details Last Modified Time Details Appointments None recorded . Lab lipid panel, serum 023 07/18/[address] (Lab), [address] [place], [address], 3 14:24:07 CBC w/ auto diff 023 07/18/[address] (Lab), [address] [place], [address], 3 14:24:07 CMP, serum or plasma 023 07/18/[address] (Lab), [address] [place], [address], 3 14:24:08 T4, free, serum 023 07/18/[address] (Lab), [address] [place], [address], 3 14:24:08 TSH, serum or plasma 023 07/18/[address] (Lab), [address] [place], [address], 3 14:24:08 Referral None recorded . Procedures None recorded . Surgeries None recorded . Imaging None recorded . Medication Orders None recorded . Patient TargetsNo targets recorded. Patient Instructions Encounter Date Encounter Id Patient Instructions Last Modified By Organization Details Last Modified Time 07/17/2022 [id number] dementia rating scale-2* [email or web address] Not available 07/17/2022 10:52:55 depression screening* [email or web address] Not available 07/17/2022 10:52:55 alcohol misuse* [email or web address] 2 Not available 07/17/2022 10:52:55 multi-dimensiona l health assessment questionnaire* [email or web address] Not available 07/17/2022 10:52:55 Personalized a [facility] Plan and Screening Recommendations Advance Directives - Do you have one? Yes Advance Directives - Do we have your advance directive on file in your health record? No, please bring in a copy at your earliest convenience Primary Prevention/Interven tion (prevents or decreases the chance of common diseases from occurring) Smoking Risk: Non Smoker I have no recommendations. Alcohol Misuse Screening: Negative I have no recommendations. Weight: Appropriate Physical activity: Appropriate physical activity Nutrition: Good Fall Risk (screened today): High Refer to attached handout Preventing Falls: After your Visit Vaccines Pneumococcal: No further needed Influenza: Your next one in the fall of this year Chronic Disease Risks Stroke: Intermediate Risk Continue current treatment plan Heart Attack: Intermediate Risk Continue current treatment plan Clogging of the Arteries: Intermediate Risk Continue current treatment plan Diabetes: Active diagnosis, Continue current treatment plan Secondary Prevention/Interven tion (detects treatable diseases before they may cause symptoms, disability, or ) Breast Cancer Screening with mammogram: No screening necessary Cervical/Uterine/Ov candice Cancer Screening: No screening necessary Osteoporosis Screening: No screening necessary Date Screening Last Performed: 01/12/2022 Colon Cancer Screening: Colonoscopy No screening necessary Date Screening Last Performed: Eye Disease Screening: No Eye exam necessary Dementia Risk: Low I have no recommendations Depression Screening: Negative I have no recommendations. Not available 07/17/2022 10:44:02 Reason for Referral None Reported. Results Created Date Observation Date Name Description Value Unit Range Abnormal Flag Note LastModifiedBy Organization Detail LastModifiedTime 01/06/2001/05/2022 FOLAT E, SERUM /PLAS MA folate 19.6 NG/mL 2.76-2 0.0 Not Available [facility] (Lab) [address] [place], [address], 01/05/2022 13:09:53 01/06/2001/05/2022 VITAM IN B12 (SELENA HARLEEN ) vb12 962 pg/mL 239-93 1 high Not Available [facility] (Lab) [address] [place], [address], 01/05/2022 13:09:51 01/06/2001/05/2022 VITAM IN D 25-HY DROXY vd25oh 47.9 NG/mL 30-100 Vitam in D Statu s: Defic ient: <20 ng/mL Insuf ficie nt: 20-29 ng/mL Suffi cient : 30-10 0 ng/mL Not Available [facility] (Lab) [address] [place], [address], 01/05/2022 12:31:53 01/06/2001/05/2022 TSH thyroid-stim ulating hormone 3.110 uIU/m L 0.465- 4.680 Not Available [facility] (Lab) [address] [place], [address], 01/05/2022 12:28:39 01/06/2020 0101/05/2022 T4 FREE free T4 0.96 NG/dL 0.78-2 .19 Not Available [facility] (Lab) [address] [place], [address], 01/05/2022 12:25:49 01/06/20 22 01/05/2022 COMPR EHENS MONSTER METAB OLIC PANEL GFR 56 Refer ence Range : [place] ge GFR Healt hy Adult : >60 mL/mi n/1.7 3 m2 Chron ic Kidne y Disea se: 15-60 mL/mi n/1.7 3 m2 Kidne y Failu re: <15/m L/min /1.73 m2 www.n iddk. nih.g ov The MDRD study equat ion has not been valid ated in child valarie <18 years of age; pregn ant women ; the elder ly >85 years of age; or in some racia l or ethni c subgr oups, such as Histn nics. Outsi de the valid ated jing eters , estim ated GFR is less accur ate, requi ring clini pipo judgm ent on a case- by-ca se basis . Clini pipo inter preta tion for other races and ages must be made by the clini paco. The MDRD study equat ion has not been valid ated for the evalu ation of serum creat inine relat ed to nutri power l statu s or medic ation usage . For perso ns <18 years of age, a pedia tric GFR calcu lator is avail able on the [facility] websi te: https ://michael w.kid clare.o rg/pr ofess ional s/kdo qi/gf r_cal culat or Not Available [facility] (Lab) [address] [place], [address], 01/05/2022 12:21:29 01/06/20 22 01/05/2022 COMPR EHENS MONSTER METAB OLIC PANEL alkaline phosphatase 117 U/L 38-126 Not Available [facility] (Lab) [address] [place], [address], 01/05/2022 12:21:29 01/06/20 22 01/05/2022 COMPR EHENS MONSTER METAB OLIC PANEL alanine aminotransfe rase 23 U/L 0-35 Not Available [facility] (Lab) [address] [place], [address], 01/05/2022 12:21:29 01/06/20 22 01/05/2022 COMPR EHENS MONSTER METAB OLIC PANEL aspartate aminotransfe rase 31 U/L 15-37 Not Available [facility] (Lab) [address] [facility], [address], 01/05/2022 12:21:29 01/06/20 22 01/05/2022 COMPR EHENS MONSTER METAB OLIC PANEL bilirubin, total 0.40 mg/dL 0.20-1 .30 Not Available [facility] (Lab) [address] [place], [address], 01/05/2022 12:21:29 01/06/20 22 01/05/2022 COMPR EHENS MONSTER METAB OLIC PANEL calcium 9.7 mg/dL 8.4-10 .2 Not Available [facility] (Lab) [address] [place], [address], 01/05/2022 12:21:29 01/06/20 22 01/05/2022 COMPR EHENS MONSTER METAB OLIC PANEL total protein 7.1 g/dL 6.3-8. 2 Not Available [facility] (Lab) [address] [place], [address], 01/05/2022 12:21:29 01/06/20 22 01/05/2022 COMPR EHENS MONSTER METAB OLIC PANEL albumin 4.5 g/dL 3.0-4. 4 high Not Available [facility] (Lab) [address] [place], [address], 01/05/2022 12:21:29 01/06/20 22 01/05/2022 COMPR EHENS MONSTER METAB OLIC PANEL globulin 2.6 g/dL 2.6-4. 2 Not Available [facility] (Lab) [address] [place], [address], 01/05/2022 12:21:29 01/06/20 22 01/05/2022 COMPR EHENS MONSTER METAB OLIC PANEL A/G ratio 1.7 ratio 1.0-2. 0 Not Available [facility] (Lab) [address] [place], [address], 01/05/2022 12:21:29 01/06/20 22 01/05/2022 COMPR EHENS MONSTER METAB OLIC PANEL sodium 139 mmol/ L 137-14 5 Not Available [facility] (Lab) [address] [place], [address], 01/05/2022 12:21:29 01/06/20 22 01/05/2022 COMPR EHENS MONSTER METAB OLIC PANEL potassium 4.7 mmol/ L 3.5-5. 1 Not Available [facility] (Lab) [address] [place], [address], 01/05/2022 12:21:29 01/06/20 22 01/05/2022 COMPR EHENS MONSTER METAB OLIC PANEL chloride 103 mmol/ L 98-107 Not Available [facility] (Lab) [address] [place], [address], 01/05/2022 12:21:29 01/06/20 22 01/05/2022 COMPR EHENS MONSTER METAB OLIC PANEL carbon dioxide 27 mmol/ L 22-30 Not Available [facility] (Lab) [address] [place], [address], 01/05/2022 12:21:29 01/06/20 22 01/05/2022 COMPR EHENS MONSTER METAB OLIC PANEL anion gap 13.7 mmol/ L 14-22 low Not Available [facility] (Lab) [address] [place], [address], 01/05/2022 12:21:29 01/06/20 22 01/05/2022 COMPR EHENS MONSTER METAB OLIC PANEL glucose 88 mg/dL 70-99 Not Available [facility] (Lab) [address] [place], [address], 01/05/2022 12:21:29 01/06/20 22 01/05/2022 COMPR EHENS MONSTER METAB OLIC PANEL BUN 17 mg/dL 8-19 Not Available [facility] (Lab) [address] [place], [address], 01/05/2022 12:21:29 01/06/20 22 01/05/2022 COMPR EHENS MONSTER METAB OLIC PANEL creatinine 0.95 mg/dL 0.66-1 .25 Not Available [facility] (Lab) [address] [place], [address], 01/05/2022 12:21:29 01/06/20 22 01/05/2022 LIPID PANEL cholesterol 134 mg/dL 140-19 9 low NIH MELISA NSUS RECOM MENDA TION FOR WAN STERO L: ADULT CHILD LOW RISK: <200 <170 BORDE RLINE : <200- 239 ----- HIGH RISK: >240 >200 Not Available [facility] (Lab) [address] [place], [address], 01/05/2022 12:21:23 01/06/20 22 01/05/2022 LIPID PANEL triglyceride s 111 mg/dL 0-150 NIH MELISA NSUS REPOR T RECOM MENDA TION FOR TRIGL YCERI HORACIO: ADULT CHILD LOW RISK: <150 ----- BODER LINE: 150-1 99 ----- HIGH RISK: >200 ----- Not Available [facility] (Lab) [address] [place], [address], 01/05/2022 12:21:23 01/06/20 22 01/05/2022 LIPID PANEL HDL cholesterol 57 mg/dL 40- Not Available [facility] (Lab) [address] [place], [address], 01/05/2022 12:21:23 01/06/20 22 01/05/2022 LIPID PANEL LDL cholesterol, calculated 55 mg/dL 0-130 NIH MELISA NSUS REPOR T RECOM MENDA TIONS FOR LDL: ADULT CHILD LOW RISK <130 <110 (OPTI MAL LDL) <100 ----- BORDE RLINE : 130-1 59 ----- HIGH RISK: >160 >130 A TRIGL YCERI DE RESUL T >400 INVAL IDATE S THE CALCU LATIO N FOR LDL FRACT IONAT ION - THE LDL RESUL T WILL NOT BE REPOR JOCELYN. Not Available [facility] (Lab) [address] [place], [address], 01/05/2022 12:21:23 01/06/2001/05/2022 CBC/C OMPLE TE BLD COUNT W/DIF F white blood cells 7.5 x10'3 /uL 4.2-10 .8 Not Available [facility] (Lab) [address] [place], [address], 01/05/2022 11:59:49 01/06/20 22 01/05/2022 CBC/C OMPLE TE BLD COUNT W/DIF F red blood cells 4.93 x10'6 /uL 3.80-5 .20 Not Available [facility] (Lab) [address] [place], [address], 01/05/2022 11:59:49 01/06/20 22 01/05/2022 CBC/C OMPLE TE BLD COUNT W/DIF F hemoglobin 13.8 g/dL 12.0-1 5.6 Not Available [facility] (Lab) [address] [place], [address], 01/05/2022 11:59:49 01/06/2001/05/2022 CBC/C OMPLE TE BLD COUNT W/DIF F hematocrit 45.0 % 35.7-4 5.7 Not Available [facility] (Lab) [address] [place], [address], 01/05/2022 11:59:49 01/06/20 22 01/05/2022 CBC/C OMPLE TE BLD COUNT W/DIF F mean red cell volume 91.3 fL 82.0-9 9.0 Not Available [facility] (Lab) [address] [place], [address], 01/05/2022 11:59:49 01/06/2001/05/2022 CBC/C OMPLE TE BLD COUNT W/DIF F mean red cell hemoglobin 28.0 pg 27.0-3 3.0 Not Available [facility] (Lab) [address] [place], [address], 01/05/2022 11:59:49 01/06/2001/05/2022 CBC/C OMPLE TE BLD COUNT W/DIF F mean RBC HGB concentratio n 30.7 g/dL 31.0-3 6.0 low Not Available [facility] (Lab) [address] [place], [address], 01/05/2022 11:59:49 01/06/2001/05/2022 CBC/C OMPLE TE BLD COUNT W/DIF F red cell distribution width 14.1 % 11.8-1 5.5 Not Available [facility] (Lab) [address] [place], [address], 01/05/2022 11:59:49 01/06/20 22 01/05/2022 CBC/C OMPLE TE BLD COUNT W/DIF F platelets 226 x10'3 /uL 150-40 0 Not Available [facility] (Lab) [address] [place], [address], 01/05/2022 11:59:49 01/06/2001/05/2022 CBC/C OMPLE TE BLD COUNT W/DIF F mean platelet volume 11.5 fL 9.0-12 .4 Not Available [facility] (Lab) [address] [place], [address], 01/05/2022 11:59:49 01/06/2001/05/2022 CBC/C OMPLE TE BLD COUNT W/DIF F neutrophils 67.4 % 39.0-7 2.0 Not Available [facility] (Lab) [address] [place], [address], 01/05/2022 11:59:49 01/06/2001/05/2022 CBC/C OMPLE TE BLD COUNT W/DIF F lymphocytes 23.4 % 16.0-4 7.0 Not Available [facility] (Lab) [address] [place], [address], 01/05/2022 11:59:49 01/06/2001/05/2022 CBC/C OMPLE TE BLD COUNT W/DIF F monocytes 5.9 % 5.0-12 .0 Not Available [facility] (Lab) [address] [place], [address], 01/05/2022 11:59:49 01/06/2001/05/2022 CBC/C OMPLE TE BLD COUNT W/DIF F eosinophils 2.3 % 1.0-7. 0 Not Available [facility] (Lab) [address] [place], [address], 01/05/2022 11:59:49 01/06/2001/05/2022 CBC/C OMPLE TE BLD COUNT W/DIF F basophils 0.7 % 0.0-2. 0 Not Available [facility] (Lab) [address] [place], [address], 01/05/2022 11:59:49 01/06/20 22 01/05/2022 CBC/C OMPLE TE BLD COUNT W/DIF F immature granulocytes 0.3 % 0.00-0 .50 Not Available [facility] (Lab) [address] [place], [address], 01/05/2022 11:59:49 01/06/20 22 01/05/2022 CBC/C OMPLE TE BLD COUNT W/DIF F neutrophils, absolute count 5.03 x10'3 /uL 1.5-8. 0 Not Available [facility] (Lab) [address] [place], [address], 01/05/2022 11:59:49 01/06/2001/05/2022 CBC/C OMPLE TE BLD COUNT W/DIF F lymphocytes, absolute count 1.74 x10'3 /uL 1.07-3 .43 Not Available [facility] (Lab) [address] [place], [address], 01/05/2022 11:59:49 01/06/2001/05/2022 CBC/C OMPLE TE BLD COUNT W/DIF F monocytes, absolute count 0.44 x10'3 /uL 0.29-0 .99 Not Available [facility] (Lab) [address] [place], [address], 01/05/2022 11:59:49 01/06/2001/05/2022 CBC/C OMPLE TE BLD COUNT W/DIF F eosinophils, absolute count 0.17 x10'3 /uL 0.02-0 .53 Not Available [facility] (Lab) [address] [place], [address], 01/05/2022 11:59:49 01/06/20 22 01/05/2022 CBC/C OMPLE TE BLD COUNT W/DIF F basophils, absolute count 0.05 x10'3 /uL 0.01-0 .08 Not Available [facility] (Lab) [address] [place], [address], 01/05/2022 11:59:49 01/06/20 22 01/05/2022 CBC/C OMPLE TE BLD COUNT W/DIF F immature granulocytes ,absolute 0.02 x10'3 /uL 0.00-0 .05 Not Available [facility] (Lab) [address] [place], [address], 01/05/2022 11:59:49 01/06/20 22 01/05/2022 CBC/C OMPLE TE BLD COUNT W/DIF F nucleated red blood cells 0.0 % -0 Not Available [facility] (Lab) [address] [place], [address], 01/05/2022 11:59:49 01/06/20 22 01/05/2022 CBC/C OMPLE TE BLD COUNT W/DIF F NRBC# 0.00 x10'3 /uL Not Available [facility] (Lab) [address] [place], [address], 01/05/2022 11:59:49 04/17/19 23 04/17/2022 FOLAT E, SERUM /PLAS MA folate 18.8 NG/mL 2.76-2 0.0 Not Available [facility] (Lab) [address] [place], [address], 04/17/2022 13:20:18 04/17/19 23 04/17/2022 VITAM IN B12 (SELENA HARLEEN ) vb12 862 pg/mL 239-93 1 Not Available [facility] (Lab) [address] [place], [address], 04/17/2022 13:20:12 04/17/19 23 04/17/2022 TSH thyroid-stim ulating hormone 3.250 uIU/m L 0.465- 4.680 Not Available [facility] (Lab) [address] [place], [address], 04/17/2022 12:40:24 04/17/19 23 04/17/2022 VITAM IN D 25-HY DROXY vd25oh 44.9 NG/mL 30-100 Vitam in D Statu s: Defic ient: <20 ng/mL Insuf ficie nt: 20-29 ng/mL Suffi cient : 30-10 0 ng/mL Not Available [facility] (Lab) [address] [place], [address], 04/17/2022 12:26:01 04/17/19 23 04/17/2022 T4 FREE free T4 0.95 NG/dL 0.78-2 .19 Not Available [facility] (Lab) [address] [place], [address], 04/17/2022 12:25:32 04/17/19 23 04/17/2022 CBC/C OMPLE TE BLD COUNT W/DIF F white blood cells 6.2 x10'3 /uL 4.2-10 .8 Not Available [facility] (Lab) [address] [place], [address], 04/17/2022 12:12:39 04/17/19 23 04/17/2022 CBC/C OMPLE TE BLD COUNT W/DIF F red blood cells 4.70 x10'6 /uL 3.80-5 .20 Not Available [facility] (Lab) [address] [place], [address], 04/17/2022 12:12:39 04/17/19 23 04/17/2022 CBC/C OMPLE TE BLD COUNT W/DIF F hemoglobin 13.0 g/dL 12.0-1 5.6 Not Available [facility] (Lab) [address] [place], [address], 04/17/2022 12:12:39 04/17/19 23 04/17/2022 CBC/C OMPLE TE BLD COUNT W/DIF F hematocrit 42.2 % 35.7-4 5.7 Not Available [facility] (Lab) [address] [place], [address], 04/17/2022 12:12:39 04/17/19 23 04/17/2022 CBC/C OMPLE TE BLD COUNT W/DIF F mean red cell volume 89.8 fL 82.0-9 9.0 Not Available [facility] (Lab) [address] [place], [address], 04/17/2022 12:12:39 04/17/19 23 04/17/2022 CBC/C OMPLE TE BLD COUNT W/DIF F mean red cell hemoglobin 27.7 pg 27.0-3 3.0 Not Available [facility] (Lab) [address] [place], [address], 04/17/2022 12:12:39 04/17/19 23 04/17/2022 CBC/C OMPLE TE BLD COUNT W/DIF F mean RBC HGB concentratio n 30.8 g/dL 31.0-3 6.0 low Not Available [facility] (Lab) [address] [place], [address], 04/17/2022 12:12:39 04/17/19 23 04/17/2022 CBC/C OMPLE TE BLD COUNT W/DIF F red cell distribution width 13.3 % 11.8-1 5.5 Not Available [facility] (Lab) [address] [place], [address], 04/17/2022 12:12:39 04/17/19 23 04/17/2022 CBC/C OMPLE TE BLD COUNT W/DIF F platelets 213 x10'3 /uL 150-40 0 Not Available [facility] (Lab) [address] [place], [address], 04/17/2022 12:12:39 04/17/19 23 04/17/2022 CBC/C OMPLE TE BLD COUNT W/DIF F mean platelet volume 11.3 fL 9.0-12 .4 Not Available [facility] (Lab) [address] [place], [address], 04/17/2022 12:12:39 04/17/19 23 04/17/2022 CBC/C OMPLE TE BLD COUNT W/DIF F neutrophils 67.4 % 39.0-7 2.0 Not Available [facility] (Lab) [address] [place], [address], 04/17/2022 12:12:39 04/17/19 23 04/17/2022 CBC/C OMPLE TE BLD COUNT W/DIF F lymphocytes 23.5 % 16.0-4 7.0 Not Available [facility] (Lab) [address] [place], [address], 04/17/2022 12:12:39 04/17/19 23 04/17/2022 CBC/C OMPLE TE BLD COUNT W/DIF F monocytes 6.9 % 5.0-12 .0 Not Available [facility] (Lab) [address] [place], [address], 04/17/2022 12:12:39 04/17/19 23 04/17/2022 CBC/C OMPLE TE BLD COUNT W/DIF F eosinophils 1.3 % 1.0-7. 0 Not Available [facility] (Lab) [address] [place], [address], 04/17/2022 12:12:39 04/17/19 23 04/17/2022 CBC/C OMPLE TE BLD COUNT W/DIF F basophils 0.6 % 0.0-2. 0 Not Available [facility] (Lab) [address] [place], [address], 04/17/2022 12:12:39 04/17/19 23 04/17/2022 CBC/C OMPLE TE BLD COUNT W/DIF F immature granulocytes 0.3 % 0.00-0 .50 Not Available [facility] (Lab) [address] [place], [address], 04/17/2022 12:12:39 04/17/19 23 04/17/2022 CBC/C OMPLE TE BLD COUNT W/DIF F neutrophils, absolute count 4.19 x10'3 /uL 1.5-8. 0 Not Available [facility] (Lab) [address] [facility], [address], 04/17/2022 12:12:39 04/17/19 23 04/17/2022 CBC/C OMPLE TE BLD COUNT W/DIF F lymphocytes, absolute count 1.46 x10'3 /uL 1.07-3 .43 Not Available [facility] (Lab) [address] [place], [address], 04/17/2022 12:12:39 04/17/19 23 04/17/2022 CBC/C OMPLE TE BLD COUNT W/DIF F monocytes, absolute count 0.43 x10'3 /uL 0.29-0 .99 Not Available [facility] (Lab) [address] [place], [address], 04/17/2022 12:12:39 04/17/19 23 04/17/2022 CBC/C OMPLE TE BLD COUNT W/DIF F eosinophils, absolute count 0.08 x10'3 /uL 0.02-0 .53 Not Available [facility] (Lab) [address] [place], [address], 04/17/2022 12:12:39 04/17/19 23 04/17/2022 CBC/C OMPLE TE BLD COUNT W/DIF F basophils, absolute count 0.04 x10'3 /uL 0.01-0 .08 Not Available [facility] (Lab) [address] [place], [address], 04/17/2022 12:12:39 04/17/19 23 04/17/2022 CBC/C OMPLE TE BLD COUNT W/DIF F immature granulocytes ,absolute 0.02 x10'3 /uL 0.00-0 .05 Not Available [facility] (Lab) [address] [place], [address], 04/17/2022 12:12:39 04/17/19 23 04/17/2022 CBC/C OMPLE TE BLD COUNT W/DIF F nucleated red blood cells 0.0 % -0 Not Available [facility] (Lab) [address] [place], [address], 04/17/2022 12:12:39 04/17/19 23 04/17/2022 CBC/C OMPLE TE BLD COUNT W/DIF F NRBC# 0.00 x10'3 /uL Not Available [facility] (Lab) [address] [place], [address], 04/17/2022 12:12:39 04/17/19 23 04/17/2022 COMPR EHENS MONSTER METAB OLIC PANEL sodium 139 mmol/ L 137-14 5 Not Available [facility] (Lab) [address] [place], [address], 04/17/2022 12:08:25 04/17/19 23 04/17/2022 COMPR EHENS MONSTER METAB OLIC PANEL potassium 4.0 mmol/ L 3.5-5. 1 Not Available [facility] (Lab) [address] [place], [address], 04/17/2022 12:08:25 04/17/19 23 04/17/2022 COMPR EHENS MONSTER METAB OLIC PANEL chloride 102 mmol/ L 98-107 Not Available [facility] (Lab) [address] [place], [address], 04/17/2022 12:08:25 04/17/19 23 04/17/2022 COMPR EHENS MONSTER METAB OLIC PANEL carbon dioxide 27 mmol/ L 22-30 Not Available [facility] (Lab) [address] [place], [address], 04/17/2022 12:08:25 04/17/19 23 04/17/2022 COMPR EHENS MONSTER METAB OLIC PANEL anion gap 14.0 mmol/ L 14-22 Not Available [facility] (Lab) [address] [place], [address], 04/17/2022 12:08:25 04/17/19 23 04/17/2022 COMPR EHENS MONSTER METAB OLIC PANEL glucose 93 mg/dL 70-99 Not Available [facility] (Lab) [address] [place], [address], 04/17/2022 12:08:25 04/17/19 23 04/17/2022 COMPR EHENS MONSTER METAB OLIC PANEL BUN 13 mg/dL 8-19 Not Available [facility] (Lab) [address] [place], [address], 04/17/2022 12:08:25 04/17/19 23 04/17/2022 COMPR EHENS MONSTER METAB OLIC PANEL creatinine 0.76 mg/dL 0.66-1 .25 Not Available [facility] (Lab) [address] [place], [address], 04/17/2022 12:08:25 04/17/19 23 04/17/2022 COMPR EHENS MONSTER METAB OLIC PANEL GFR >60 Refer ence Range : [place] ge GFR Healt hy Adult : >60 mL/mi n/1.7 3 m2 Chron ic Kidne y Disea se: 15-60 mL/mi n/1.7 3 m2 Kidne y Failu re: <15/m L/min /1.73 m2 [email or web address] The MDRD study equat ion has not been valid ated in child valarie <18 years of age; pregn ant women ; the elder ly >85 years of age; or in some racia l or ethni c subgr oups, such as Hispa nics. Outsi de the valid ated jing eters , estim ated GFR is less accur ate, requi ring clini pipo judgm ent on a case- by-ca se basis . Clini pipo inter preta tion for other races and ages must be made by the clini paco. The MDRD study equat ion has not been valid ated for the evalu ation of serum creat inine relat ed to nutri power l statu s or medic ation usage . For perso ns <18 years of age, a pedia tric GFR calcu lator is avail able on the [facility] websi te: [email or web address] :[email or web address] [email or web address] [email or web address] culat or Not Available [facility] (Lab) [address] [place], [address], 04/17/2022 12:08:25 04/17/19 23 04/17/2022 COMPR EHENS MONSTER METAB OLIC PANEL alkaline phosphatase 88 U/L 38-126 Not Available [facility] (Lab) [address] [place], [address], 04/17/2022 12:08:25 04/17/19 23 04/17/2022 COMPR EHENS MONSTER METAB OLIC PANEL alanine aminotransfe rase 27 U/L 0-35 Not Available [facility] (Lab) [address] [place], [address], 04/17/2022 12:08:25 04/17/19 23 04/17/2022 COMPR EHENS MONSTER METAB OLIC PANEL aspartate aminotransfe rase 34 U/L 15-37 Not Available [facility] (Lab) [address] [place], [address], 04/17/2022 12:08:25 04/17/19 23 04/17/2022 COMPR EHENS MONSTER METAB OLIC PANEL bilirubin, total 0.60 mg/dL 0.20-1 .30 Not Available [facility] (Lab) [address] [place], [address], 04/17/2022 12:08:25 04/17/19 23 04/17/2022 COMPR EHENS MONSTER METAB OLIC PANEL calcium 9.4 mg/dL 8.4-10 .2 Not Available [facility] (Lab) [address] [place], [address], 04/17/2022 12:08:25 04/17/19 23 04/17/2022 COMPR EHENS MONSTER METAB OLIC PANEL total protein 7.2 g/dL 6.3-8. 2 Not Available [facility] (Lab) [address] [place], [address], 04/17/2022 12:08:25 04/17/19 23 04/17/2022 COMPR EHENS MONSTER METAB OLIC PANEL albumin 4.5 g/dL 3.0-4. 4 high Not Available [facility] (Lab) [address] [place], [address], 04/17/2022 12:08:25 04/17/19 23 04/17/2022 COMPR EHENS MONSTER METAB OLIC PANEL globulin 2.7 g/dL 2.6-4. 2 Not Available [facility] (Lab) [address] [place], [address], 04/17/2022 12:08:25 04/17/19 23 04/17/2022 COMPR EHENS MONSTER METAB OLIC PANEL A/G ratio 1.7 ratio 1.0-2. 0 Not Available [facility] (Lab) [address] [place], [address], 04/17/2022 12:08:25 04/17/19 23 04/17/2022 LIPID PANEL cholesterol 146 mg/dL 140-19 9 NIH MELISA NSUS RECOM MENDA TION FOR WAN STERO L: ADULT CHILD LOW RISK: <200 <170 BORDE RLINE : <200- 239 ----- HIGH RISK: >240 >200 Not Available [facility] (Lab) [address] [place], [address], 04/17/2022 12:08:20 04/17/19 23 04/17/2022 LIPID PANEL triglyceride s 165 mg/dL 0-150 high NIH MELISA NSUS REPOR T RECOM MENDA TION FOR TRIGL YCERI HORACIO: ADULT CHILD LOW RISK: <150 ----- BODER LINE: 150-1 99 ----- HIGH RISK: >200 ----- Not Available [facility] (Lab) [address] [place], [address], 04/17/2022 12:08:20 04/17/19 23 04/17/2022 LIPID PANEL HDL cholesterol 62 mg/dL 40- Not Available [facility] (Lab) [address] [place], [address], 04/17/2022 12:08:20 04/17/19 23 04/17/2022 LIPID PANEL LDL cholesterol, calculated 51 mg/dL 0-130 NIH MELISA NSUS REPOR T RECOM MENDA TIONS FOR LDL: ADULT CHILD LOW RISK <130 <110 (OPTI MAL LDL) <100 ----- BORDE RLINE : 130-1 59 ----- HIGH RISK: >160 >130 A TRIGL YCERI DE RESUL T >400 INVAL IDATE S THE CALCU LATIO N FOR LDL FRACT IONAT ION - THE LDL RESUL T WILL NOT BE REPOR JOCELYN. Not Available [facility] (Lab) [address] [place], [address], 04/17/2022 12:08:20 01/13/20 22 01/12/2022 DEXA, axial skele ton No observ ation record ed. [id number] Not Available 05/31/2022 01:31:26 01/13/20 22 01/12/2022 DEXA, axial skele ton [facility] [address], [place] [address] [phone] Pretty bernard Name: SASKIA FRYE Access ion #: [id number] Sex: F : 1935 0 Locati on: RAD Attend ing Physic morena: DESTINEE ZIMMERMAN Orderi ng Physic morena: SAULDESTINEE FROST A Exam Date: 2021 2:19 PM Exam Name: XR DEXA-H IPS PELVIS SPINE Admitt ing Diagno sis(es ): RADIOL OGY REPORT - FINAL EXAM: XR DEXA-H IPS PELVIS SPINE HISTOR Y: AGE RELATE D OSTEOP OROSIS 86-yea r-old female with osteop orosis screen ing. COMPAR ISABEL: None availa ble. TECHNI QUE: Dual energy x-ray of absorp tion examin ation of the bilate ral hips and lumbar spine in AP projec tion was perfor med. FINDIN GS: Lumbar Spine (L1-L4 ): The mean bone minera l densit y is 1.133 g/cm2 hydrox yapati te, correl ating with a T-scor e of -0.5. Bilate ral hips: The mean bone minera l densit y is 0.791 g/cm2 calciu m hydrox yapati te, correl ating with a T-scor e of -1.7. Page 1 of 2 [facility] Pretty bernard Name: SASKIA FRYE Access ion #: [id number] Sex: F : 1935 0 Exam Date: 2021 2:19 PM Exam Name: XR DEXA-H IPS PELVIS SPINE Admitt ing Diagno sis(es ): IMPRES SOFÍA: 1. The patien t's lumbar spine T-scor e is consis tent with normal bone minera l densit y. 2. The patien t's bilate ral hip T-scor e is consis tent with osteop enia. Accord ing to the World Health Organi zation , T-scor e values greate r than -1.0 are normal , values betwee n -1.0 and -2.5 are catego rized as osteop enia, T-scor e of -2.5 or more are catego rized as osteop orosis . Create d and electr onical ly signed by: Aakash briggs MD Signed Date: 2021 2:46 PM (CT) Dictat ed by: Aakahs briggs MD DD: 2021 2:46 PM (CT) DT: 2021 2:46 PM (CT) Page 2 of 2 [id number] [facility] (Imaging) [address] [place], [address], 05/31/2022 01:31:26 02/13/20 22 02/12/2022 US, kidne y No observ ation record ed. [id number] [facility] On Lab Orders [address] [place], [address], 05/31/2022 01:31:26 03/01/20 22 03/01/2022 US, duple x, yumi s, lower extre mity No observ ation record ed. [id number] [facility] Add On Lab Orders [address] [place], [address], 05/31/2022 01:31:26 07/05/19 23 05/04/2022 US, doppl er, venou s No observ ation record ed. BARCODE Not Available 2022 18:21:54 Result Notes Documentation Provider Name and Address Organization Details Recorded Time Dexa, Axial Skeleton : [facility] [address] [place] [address] Patient Name: SASKIA BOWEN Sex: F : 1935 Location: [facility] Attending Physician: SYLVESTER COTTO Ordering Physician: SYLVESTER COTTO Exam Date: 01/12/2022 2:19 PM Exam Name: XR DEXA-HIPS PELVIS SPINE Admitting Diagnosis(es): RADIOLOGY REPORT - FINAL EXAM: XR DEXA-HIPS PELVIS SPINE HISTORY: AGE RELATED OSTEOPOROSIS 86-year-old female with osteoporosis screening. COMPARISON: None available. TECHNIQUE: Dual energy x-ray of absorption examination of the bilateral hips and lumbar spine in AP projection was performed. FINDINGS: Lumbar Spine (L1-L4): The mean bone mineral density is 1.133 g/cm2 hydroxyapatite, correlating with a T-score of -0.5. Bilateral hips: The mean bone mineral density is 0.791 g/cm2 calcium hydroxyapatite, correlating with a T-score of -1.7. Page 1 of [address] [facility] Patient Name: SASKIA BOWEN Sex: F : 1935 Exam Date: 01/12/2022 2:19 PM Exam Name: XR DEXA-HIPS PELVIS SPINE Admitting Diagnosis(es): IMPRESSION: 1. The patient's lumbar spine T-score is consistent with normal bone mineral density. 2. The patient's bilateral hip T-score is consistent with osteopenia. According to the World Health Organization, T-score values greater than -1.0 are normal, values between -1.0 and -2.5 are categorized as osteopenia, T-score of -2.5 or more are categorized as osteoporosis. Created and electronically signed by: Aakash Swartz MD Signed Date: 01/12/2022 2:46 PM (CT) Dictated by: Aakash Swartz MD (CT) (CT) Page 2 of 2 Not Available [facility] 05/31/2022 01:31:27 Problems Name Problem SNOMED Code Status Onset Date Resolution Date Notes Provider Name and Address Organization Details Recorded Time Edema of lower extremity 397203418 Active 2021 Not Available [facility] 3 16:10:09 Vitamin D deficiency 92365187 Active 2021 Not Available [facility] 3 16:10:09 Vertigo 190019683 Active 2022 Not Available [facility] 3 16:10:09 Hypothyroi dism 02553553 Active 2021 Not Available [facility] 3 16:10:09 Hyperlipid emia 66432606 Active 2021 Not Available [facility] 3 16:10:09 Essential hypertensi on 97126619 Active 2021 Not Available [facility] 3 16:10:09 Vitamin B12 deficiency (non anemic) 10695399 Active 2021 Not Available [facility] 3 16:10:09 Chronic kidney disease 649518811 Active 2021 Not Available [facility] 3 16:10:09 Type 2 diabetes mellitus without complicati on 732121639 Active 2022 Not Available [facility] 3 16:10:09 Erectile dysfunctio n 894118759 Active 2022 Not Available [facility] 3 16:10:09 Steatotic liver disease 912803801 Active 2022 Not Available [facility] 3 16:10:09 Neuropathy 053573783 Active 2022 Not Available [facility] 3 16:10:09 Unsteady when walking 54762746 Active 2022 Not Available [facility] 3 16:10:09 Gastroesop hageal reflux disease without esophagiti s 388241044 Active 2022 Not Available [facility] 3 16:10:09 Hallux valgus AND bunion 148060883 Active 2022 Not Available [facility] 3 16:10:09 Foot callus 053973768 Active 2022 Not Available [facility] 3 16:10:09 Dystrophia unguium 65767868 Active 2022 Not Available [facility] 3 16:10:09 Pain in both feet 6747003237527 9102 Active 2022 Not Available [facility] 16:10:09 Problem Notes None recorded. Procedures Surgical History Date Name Laterality Status Provider Name and Address Organization Details Recorded Time 023 Nail Debridement completed Wayne Che DPM [address], [place], [address], [facility] [employer] [facility] 08/14/2022 12:01:09 023 Callus Debridement 2-4 completed Wayne Che DPM [address], [place], [address], [employer] 08/14/2022 12:01:19 023 Medicare Wellness CPT Code, subsequent completed Lisa Hurtado RN [facility] [employer] [facility] 07/17/2022 10:38:41 completed Not Available [facility] 05/31/2022 01:26:33 Hemorrhoidectomy completed Not Available [facility] 05/31/2022 01:26:33 Appendectomy completed Not Available [facility] 05/31/2022 01:26:33 Tonsillectomy completed Not Available [facility] 05/31/2022 01:26:33 Hysterectomy completed Not Available [facility] 05/31/2022 01:26:33 Cyst Removal completed Not Available [facility] 05/31/2022 01:26:33 Imaging Results None recorded. Procedure Notes None recorded. Medical Equipment None Reported. Allergies Allergen ID Allergen Name Allergen Category Reaction Reaction Severity Criticality Documentation Date Start Date Code Code System Note Provider Name and Address Organization Details Recorded Time 28169 Product containin g penicilli n (product) medicatio n Not available Not available Not available 05/31/2022 62136 8001 SNOMED child mario aller gy Not Available [facility] 01:31:12 Medications Name Sig Start Date Stop Date Status Note LastModified by Organization Details LastModified Time losartan 50 mg tablet TAKE 1 TABLET BY MOUTH EVERY DAY active Not Available Not Available No t Available cetirizine 10 mg tablet TAKE 1 TABLET BY MOUTH EVERY DAY active Not Available Not Available No t Available clonazepam 1 mg tablet TAKE 1 TABLET BY MOUTH TWICE A DAY NEEDED active Not Available Not Available No t Available spironolact one 25 mg tablet Take 0.5 tablets every day by oral route. 03/01 completed Not Available Not Available Not Available meclizine 25 mg tablet TAKE 1 TABLET BY MOUTH EVERY DAY NEEDED FOR 90 DAYS active Not Available Not Available No t Available pantoprazol e 40 mg tablet,danial yed release TAKE 1 TABLET BY MOUTH EVERY DAY FOR 90 DAYS active Not Available Not Available No t Available sertraline 25 mg tablet TAKE 1 TABLET (25 MG TOTAL) BY MOUTH DAILY. 07/17 completed Not Available Not Available Not Available diltiazem CD 120 mg capsule,ext ended release 24 hr TAKE 1 CAPSULE BY MOUTH EVERY DAY active Not Available Not Available No t Available pravastatin 20 mg tablet TAKE 1 TABLET BY MOUTH EVERY DAY active Not Available Not Available No t Available furosemide 20 mg tablet TAKE 1 TABLET BY MOUTH EVERY DAY active Not Available Not Available No t Available ergocalcife rol (vitamin D2) 1,250 mcg (50,000 unit) capsule TAKE 1 CAPSULE BY MOUTH ONCE A WEEK FOR 90 DAYS active Not Available Not Available No t Available methylpredn isolone 4 mg tablets in a dose pack TAKE 6 TABLETS ON DAY 1 DIRECTED ON PACKAGE AND DECREASE BY 1 TAB EACH DAY FOR A TOTAL OF 6 DAYS 07/17 completed Not Available Not Available Not Available fluticasone propionate 50 mcg/actuati on nasal spray,suspe nsion SPRAY 1 SPRAY INTO EACH NOSTRIL EVERY DAY active Not Available Not Available No t Available calcitriol 0.25 mcg capsule TAKE 1 CAPSULE BY MOUTH EVERY DAY FOR 90 DAYS active Not Available Not Available No t Available Klor-Con M10 mEq tablet,exte nded release TAKE 2 TABLETS BY MOUTH DAILY active Not Available Not Available No t Available Klor-Con 08/14 completed Not Available Not Available Not Available Vitamin D2 active Not Available Not Av ailable Not Available Vitals Date Recorded Body mass index (BMI) Body height Heart rate Body temperature Body weight Systolic blood pressure Diastolic blood pressure Provider Name and Address Organization Details Last Updated DateTime 3 26.1 kg/m2 154.94 cm 78 /min 97.6 [degF] 32787.7 5 g 120 mm[Hg] 60 mm[Hg] Not Available [facility] 3 01:27:50 Date Recorded Body height Body mass index (BMI) Body weight Body temperature Heart rate Systolic blood pressure Diastolic blood pressure Provider Name and Address Organization Details Last Updated DateTime 3 154.94 cm 26.6 kg/m2 55038.5 2 g 97.6 [degF] 78 /min 114 mm[Hg] 50 mm[Hg] DEVIKA Wilde [facility] 3 10:20:48 Date Recorded Body height Body mass index (BMI) Body weight Body height Body mass index (BMI) Body weight Heart rate Respiratory rate Oxygen saturation Oxygen saturation in Arterial blood by Pulse oximetry Systolic blood pressure Diastolic blood pressure Provider Name and Address Organization Details Last Updated DateTime 3 154.94 cm 25.5 kg/m2 09036.9 7 g 154.94 cm 26.6 kg/m2 39545.5 2 g 77 /min 13.99 /min 98 % 98 % 145 mm[Hg] 80 mm[Hg] Shannon Childress [facility] 3 11:46:09 Date Recorded Body mass index (BMI) Body height Heart rate Body temperature Body weight Systolic blood pressure Diastolic blood pressure Provider Name and Address Organization Details Last Updated DateTime 2 24.8 kg/m2 154.94 cm 72 /min 97.8 [degF] 37884.4 g 110 mm[Hg] 60 mm[Hg] Not Available [facility] 3 01:27:50 Date Recorded Body mass index (BMI) Body height Heart rate Body temperature Body weight Systolic blood pressure Diastolic blood pressure Provider Name and Address Organization Details Last Updated DateTime 2 24.9 kg/m2 154.94 cm 84 /min 97.1 [degF] 71253.1 9 g 130 mm[Hg] 70 mm[Hg] Not Available [facility] 3 01:27:50 Social History Question Answer Notes LastModified by Organization Details LastModified Time Tobacco Smoking Status Never Smoker Not Available [facility] 05/31/2022 01:26:04 Do You Have An Advance Directive? Yes Information not available 07/17/2022 Are You Blind Or Do You Have Difficulty Seeing? No [id number].300 [id number] Information not available 05/31/2022 What Is Your Level Of Caffeine Consumption? Moderate [id number] Information not available 05/31/2022 In The 14 Days Before Symptom Onset, Have You Had Close Contact With A Laboratory-confi rmed COVID-19 While That Case Was Ill? No MIGRATION.0301 [id number] Information not available 05/31/2022 In The 14 Days Before Symptom Onset, Have You Had Close Contact With A Person Who Is Under Investigation For COVID-19 While That Person Was Ill? No MIGRATION.0301 [id number] Information not available 05/31/2022 Are You Deaf Or Do You Have Serious Difficulty Hearing? Yes Recent Hearing Test That Showed She Needs Hearing Aids Information not available 07/17/2022 What Type Of Diet Are You Following? REGULAR MIGRATION.0301 [id number] Information not available 05/31/2022 What Is The Highest Grade Or Level Of School You Have Completed Or The Highest Degree You Have Received? [id number] MIGRATION.0301 [id number] Information not available 05/31/2022 Have There Been Any Changes To Your Family Or Social Situation? Yes MIGRATION.0301 [id number] Information not available 05/31/2022 What Is The Fluoride Status Of Your Home? Unknown MIGRATION.0301 064275 Information not available 05/31/2022 Are There Any Guns Present In Your Home? No MIGRATION.0301 373040 Information not available 05/31/2022 Do You Use Insect Repellent Routinely? No Information not available 07/17/2022 Where Do You Live? [place]House MIGRATION.0301 [id number] Information not available 05/31/2022 Presence Of Domestic Violence No Information not available 07/17/2022 Guns Present In The Home? No Information not available 07/17/2022 Are You Able To Care For Yourself? Yes Information not available 07/17/2022 Are You Blind Or Do Yo Have Difficulty Seeing? No Information not available 07/17/2022 Are You Deaf Or Do You Have Serious Difficulty Hearing? Yes Information not available 07/17/2022 General Stress Level? Low Information not available 07/17/2022 Live Alone Of With Others? Alone Information not available 07/17/2022 Do You Have A Medical Power Of Stoner Out? Yes Information not available 07/17/2022 What Was The Date Of Your Most Recent Tobacco Screening? 07/17/2022 [email or web address] Information not available 07/17/2022 Do You Have Any Pets? No MIGRATION.0301 [id number] Information not available 05/31/2022 What Is Your Relationship Status? MIGRATION.0301 [id number] Information not available 05/31/2022 Do You Have Smoke And Carbon Monoxide Detectors In Your Home? Yes MIGRATION.0301 821077 Information not available 05/31/2022 Are You Passively Exposed To Smoke? No MIGRATION.0301 097112 Information not available 05/31/2022 Are There Any Smokers In Your House? No MIGRATION.0301 657317 Information not available 05/31/2022 Do You Use Sunscreen Routinely? No Does Not Go Outsode Much MIGRATION.0301 455028 Information not available 05/31/2022 Has Tobacco Cessation Counseling Been Provided? No N/a MIGRATION.0301 104843 Information not available 05/31/2022 Have You Recently Traveled Abroad? No MIGRATION.0301 [id number] Information not available 05/31/2022 Do You Have Difficulty Walking Or Climbing Stairs? Yes MIGRATION.0301 455534 Information not available 05/31/2022 Do You Have Any Dietary Restrictions? No MIGRATION.0301 173395 Information not available 05/31/2022 Sex: Female Functional Status Question Answer Note LastModified by Organizat ion Details LastModified Time Do you use any illicit or recreational drugs? No MIGRATION.765254 1140 Information not available 05/31/2022 Do you or have you ever used any other forms of tobacco or nicotine? No MIGRATION.321422 5258 Information not available 05/31/2022 What is your level of alcohol consumption? None MIGRATION.003168 1059 Information not available 05/31/2022 Do you have transportation difficulties? No MIGRATION.461206 9468 Information not available 05/31/2022 Are you able to walk? YESASSIST uses walker MIGRATION.211470 5526 Information not available 05/31/2022 Do you have difficulty doing errands alone? No MIGRATION.058253 2880 Information not available 05/31/2022 Are you able to care for yourself? Yes MIGRATION.787826 4490 Information not available 05/31/2022 Do you have difficulty dressing or bathing? No MIGRATION.530772 4304 Information not available 05/31/2022 What is your exercise level? Occasional MIGRATION.968030 2209 Information not available 05/31/2022 Mental Status Question Answer Note LastModified by Organizat ion Details LastModified Time Do you feel stressed (tense, restless, nervous, or anxious, or unable to sleep at night)? [id number] MIGRATION.[id number] 26 Information not available 05/31/2022 Do you have difficulty concentrating, remembering or making decisions? No MIGRATION.[id number] 26 Information not available 05/31/2022 Family History Relationship Description Onset Age of this Age Resolved Age Notes LastModified by Organization Details LastModified Time Mother Dementia MIGRATION.112 [id number] Not available 05/31/2022 01:26:36 Father Malignant neoplasm of liver MIGRATION.550 [id number] Not available 05/31/2022 01:26:36 Father Heart disease MIGRATION.759 [id number] Not available 05/31/2022 01:26:36 Brother Heart disease MIGRATION.542 [id number] Not available 05/31/2022 01:26:36 Brother Family history of malignant neoplasm x2 MIGRATION.929 [id number] Not available 05/31/2022 01:26:36 Son Disease of liver MIGRATION.641 [id number] Not available 05/31/2022 01:26:37 Daughter Cerebral palsy MIGRATION.314 [id number] Not available 05/31/2022 01:26:37 Medical History Condition Response NERVE DISEASE Y BLINDNESS N RHEUMATIC FEVER N KIDNEY STONES N BLADDER PROBLEMS N MRSA N OTHER # 1 N POLIO N LUNG DISEASE/DISORDER N HISTORY OF DRUG ABUSE N RADIATION / CHEMOTHERAPY N COPD N Other # 2 N BLOOD DISEASES N EAR OR HEARING PROBLEMS N MUMPS N SHINGLES N BOWEL PROBLEMS N DEPRESSION (INCLUDING POST ) N STROKE/TIA N ULCERS N BENIGN PROSTATIC HYPERPLASIA N MEASLES N HYPOTENSION N MYOCARDIAL INFARCTION N OBESITY N GERD/NAUSEA N ANEURYSM N URINARY/BLADDER/KIDNEY PROBLEMS N CORONARY ARTERY DISEASE (CAD) N ADDICTION CONCERNS N Impotence N ENDOMETRIOSIS N USE OF BLOOD THINNERS N SKIN PROBLEMS N GASTROINTESTINAL DISORDER N PERIPHERAL VASCULAR DISEASE N MUSCLE,JOINT OR BONE PROBLEMS N GASTROINTESTINAL BLEEDING N BLOOD CLOTS N ASTHMA N CATARACTS N ERECTILE DYSFUNCTION N VARICOSITIES N GI PROBLEMS N Low Testosterone N INFERTILITY N AIDS/HIV N CHEMOTHERAPY / RADIATION N LIVER DISEASE N MALE HYPOGONADISM N HYPERTENSION Y Deficiency Y TOURETTE'S N ANXIETY DISORDER N BLOOD TRANSFUSION N ANEMIA/BLOOD DISORDER N CHRONIC EAR INFECTIONS N BRONCHITIS N TUBERCULOSIS N GLAUCOMA N FOOT PROBLEM N DIVERTICULITIS N SLEEP APNEA N CHICKENPOX N INFECTIOUS DISEASE N PROSTATE N HEART ARRHYTHMIA N INSOMNIA N HIGH CHOLESTEROL / HYPERLIPIDEMIA Y EYE PROBLEMS N HYPERTHYROIDISM N EDEMA Y CHRONIC PAIN SYNDROME N HYPOTHYROIDISM N CONSTIPATION N CAROTID BLOCKAGE N BACK / NECK PROBLEMS Y ATHEROSCLEROSIS N BREAST PROBLEMS N DIALYSIS N ECZEMA N OSTEOPOROSIS N ARTHRITIS N APPENDICITIS N DIABETES, TYPE N BAD TEETH N ENT N HEARTBURN / REFLUX N AUTISM SPECTRUM DISORDER (ASD) N HEPATITIS / LIVER DISEASE N GOUT N SLEEP DISORDER N ALZHEIMER'S DISEASE N Brain Problems N DEMENTIA N HERPES N SEIZURES/EPILEPSY N HEADACHES/MIGRAINES N VASCULAR DISEASE N PACEMAKER N Blood Disorder N DIZZINESS N HEART DISEASE/HEART PROBLEMS N KIDNEY DISEASE N MULTIPLE SCLEROSIS N CANCER: SPECIFY N CARDIAC ARRHYTHMIA N ATRIAL FIBRILLATION N Gall Stones N PULMONARY EMBOLISM N AUTOIMMUNE DISEASE N Gynecological HistoryNo gynecological history recorded. Obstetrics History GPAL:G 0 P 0 0 0 0 Immunizations Vaccine Type Date Status Note Provider Nam e and Address Organization Details Recorded Time COVID-19, mRNA, LNP-S, PF, 30 mcg/0.3 mL dose 2 completed Not Available [facility] 09/11/2022 16:10:09 COVID-19, mRNA, LNP-S, PF, 30 mcg/0.3 mL dose 1 completed Not Available [facility] 09/11/2022 16:10:09 COVID-19, mRNA, LNP-S, PF, 30 mcg/0.3 mL dose 1 completed Not Available [facility] 09/11/2022 16:10:09 zoster recombinant 2 completed Not Available [facility] 09/11/2022 16:10:09 Influenza, high-dose, quadrivalent, PF 2 completed Not Available [facility] 09/11/2022 16:10:09 Past Encounters Encounter ID Performer Location Encounter Start Date Encounter Closed Date Diagnosis/Indication Diagnosis SNOMED-CT Code Diagnosis ICD10 Code Diagnosis Note [id number] MD CARINE HuaS_[facility] [address] [facility] [place] [address] 01/04/2022 00:00:00 01/04/2022 14:20:10 [id number] Sylvester lazar MD [facility] Internal Med [facility] [address] [address] 03/01/2022 00:00:00 03/01/2022 11:24:31 [id number] Sylvester lazar MD [facility] Internal Med [facility] [address] [address] 04/05/2022 00:00:00 04/05/2022 12:18:23 [id number] Sylvester lazar MD [facility] Internal Med [facility] [address] [address] 07/17/2022 09:59:50 07/17/2022 10:53:48 Screening - NAD [id number] Z13.9 C-scope: Not doing this at this time, no complaints Mammogram: Not doing this at this time, advised to do SBEPAP: Not doing, no complaints DEXA: 01/12/2022 : Osteopenia , do ca and vit d Get yearly flu shotGet Tdap if not doneCan do shingrix vaccineCan do PCV #13 and then #23 or #20 if not done, as per her history she has had thisDo all COVID 19 vaccines and boosters RTC in 3 months, do labs, ER if worse, she did verbalize her understand ing of the above Essential hypertension [id number] I10 On diltiazem CD 120mg dailyOn K 10meq dailyOn losartan 50mg dailyOn spironolac tone 25mg 1/[address] Qureshi [facility]/p US venous doppler 05/04/2022 Get labs Hyperlipidemia [id number] E78.5 On pravastati n 20mg dailyGet labs Unsteady when walking 22 [id number] R26.89 S/p history of a fall about 12 years ago, since then has had dizzyness and unable to walk, unless she uses a walkerHas seen a neurologis t Dr Dutta in [place] and has been on clonazepam 1mg po bid for this issue for the past 12 years, she has tried to wean off but has not been able to walk if she does not take the clonazepam , she did sign JUWAN for the neurologis t OV 07/17/2022 :She has a walker but it is too heavy and does not have a seat, get a new prescripti on Edema of l ower extremity [id number] R60.0 Get US venous dopplers stat hold and call If negative can do lasix 20mg 2 tabs for [address] Titus MARKS US LE 03/01/2022 : Neg Hallux francesco jonathan AND bunion [id number] M20.[address] Che on 04/17/2022 Chronic ki dney disease [id number] N18.[address] Titus MARKS On calcitriol 0.25mg dailyOn Vit D weekly Vertigo [id number] R42 On meclizine given by Dr Titus MARKS Gastroesop hageal reflux disease without esophagitis [id number] K21.9 On pantoprazo le 40mg daily, advised to take ONLY as needed, given by Dr Titus MARKS Adult heal th examination [id number] Z00.00 Screening for disorder [id number] Z13.9 [id number] Wayne Che DPM [facility] [place] [address] [facility] [address] [place] [address] 08/14/2022 11:28:04 08/14/2022 12:45:12 Hallux valgus AND bunion [id number] M20.10 conservati ve options reviewedPa tient is not a surgical candidate due to age and no help at home Foot callus [id number] L8 4 debrided without incidentRe commend diabetic style inserts and supportive shoe geardispen se shoe gear informatio n Pain in both feet [id number] 1651 [id number] M79.671 M79.672 Secondary to toe deformitie sEducated on shoe gearEducat ed on offloading devicesWil l continue to monitor Dystrophia unguium 99120 009 L60.3 Nails 1 through 10 were debrided with sharp mechanical debridemen t without incident. Nails were debrided and greater than 50% length and thickness where needed. Health Concerns Section Related Observation LastModified by Organization Detai ls LastModified Time None Recorded Concern Status LastModified by Organization Details LastModified Time None Recorded Advance Directives Directive Y: Payers Insurance Date Sequence Insurance Name Policy Number Policy Cooney Covered Member ID Cooney Member ID Guarantor Name 09/18/2022 1 [place] Saskia Bowen [id number] Saskia Bowen 08/11/2022 2 [employer] (POS) [id number] Saskia Bowen [id number] Saskia Bowen Notes Date Note Type Note Provider Name and Address Organization Details Recorded Time 07/17/2022 text/html OV 01/04/2022:He re to establish carePast Hx:HTNHLDUnsteady gait, d/t head traumaReviewed social family and surgical historyHere to discuss above and get labsShe is here with her sister Cici Martinez doing well OV 03/02/2022:ACV:C/o jeff LE edema with some pain with walking, also has R>L bunyon, uses a walker, no acute injury, did see Dr Titus MARKS and was put on lasixNot noted any redness or wounds, no N/T or weaknessNo chest pain, SOB, wheezing, SNYDER or syncope or presyncope OV 04/05/2022:Here for her f/u apt, she is doing well, labs done on 01/05/2022, still has the LE edema, denies any pain, color change, N/T or weakness in the legs OV 07/17/2022:Here for her f/u apt, feels well today Sylvester Cotto MD [address], [place], [address], [facility] 07/17/2022 10:56:30 08/14/2022 text/html . Patient is a 86-year-old female who presents the office with complaints of painful calluses to the feet. Patient states when she is standing or walking she has pain. Patient denies any injury or wounds. Patient does walk with a walker. Patient states she lives alone and does not have any extended family in the area. Patient states her current pain level is 8/10. Patient describes a burning, sharp, constant pain when walking. Patient denies any other pedal complaints. Wayne Che DPM [address], [place], [address], [place] [facility] 08/14/2022 12:36:49 OBGyn Episode No OBEpisode recorded.
--- OUTSIDE RECORDS SUMMARY | 2024-09-11 12:14 | XMS_ITS | Patient Health Record ---
Author Organization [facility] Address [address] [facility] [address] [facility] [address] [place] [address] Reason For Referral No Information Medications Medication SIG (Take, Route, Fr equency, Duration) Notes Start Date End Date Status Protonix 40 MG 1 tablet Orally Once a day for 90 days 02/09/2022 Active Meclizine HCl 25 MG 1 tablet as needed O rally once a day for 90 days 02/09/2022 Active Calcitriol 0.25 MCG TAKE 1 CAPSULE BY [facility] EVERY DAY for 90 Active Social History Sex Assigned At : Social History Observation Description Sex Assigned At Female Problems Problem Type SNOMED Code ICD Code Onset Dates Problem Status W/U Status Risk Notes Problem Hyperlipidemia (18613904) Hyperlipidemia, unspecified (E78.5) Active confirmed Problem Essential hypertension (99413626) Essential (primary) hypertension (I10) Active confirmed Problem Chronic kidney disease, stage 2 (mild) (N18.2) Active confirmed Problem Renal osteodystrophy (10687953) Renal osteodystrophy (N25.0) Active confirmed Plan Of Treatment No Information
--- NOTE | 2024-09-11 12:28 | ECHO_ITS ---
Patient Info Name: Saskia Randle Age: 88 years : 1935 Gender: Female Ht: 60 in Wt: 133 lbs BSA: 1.61 m2 HR: 70 bpm BP: 139 / 82 mmHg Technical Quality: Good Exam Date: 09/11/2024 12:56 PM Patient Status: O Admit Date: 09/11/2024 Exam Type: CA echo doppler color flow Data Architect: Dora Chavez Attending Provider: Annalisa Cedillo Summary 1. Left ventricular chamber dimension is normal. 2. Left ventricular systolic function is normal, estimated at 60-65. 3. The left ventricular diastolic function is grade I diastolic dysfunction. 4. E/e' 16 is elevated. 5. Left atrial chamber dimension is mildly enlarged. 6. There is mild aortic valve sclerosis. 7. The mitral valve has a mildly calcified annulus. 8. There is trace mitral valve regurgitation. 9. No pulmonary hypertension, estimated pulmonary arterial systolic pressure is 27 mmHg. Left Ventricle Left ventricular chamber dimension is normal. Left ventricular systolic function is normal, estimated at 60-65. The left ventricular diastolic function is grade I diastolic dysfunction. E/e' 16 is elevated. Right Ventricle Right ventricular chamber dimension is normal. Right ventricular systolic function is normal and with normal TAPSE 3.1 cm. Left Atria Left atrial chamber dimension is mildly enlarged. Right Atria Right atrial chamber dimension is normal. Aortic Valve The aortic valve is trileaflet. There is mild aortic valve sclerosis. There is no aortic valve stenosis. There is no aortic valve regurgitation. Pulmonic Valve There is no pulmonic regurgitation. Mitral Valve The mitral valve has a mildly calcified annulus. There is no mitral valve stenosis. There is trace mitral valve regurgitation. Tricuspid Valve There is no tricuspid valve regurgitation. No pulmonary hypertension, estimated pulmonary arterial systolic pressure is 27 mmHg. Pericardium/Pleural There is no pericardial effusion. Inferior Vena Cava Normal inferior vena cava with >50% collapse upon inspiration consistent with normal right atrial pressure, 5 mmHg. Aorta The aortic root size at the sinus of Valsalva is normal. Left Ventricular Outflow Tract Name Value Normal LVOT 2D LVOT Diameter 1.9 cm LVOT Doppler LVOT Peak Velocity 82 cm/s LVOT Peak Gradient 3 mmHg LVOT Mean Gradient 2 mmHg LVOT VTI 19 cm LVOT VTI/AV VTI Ratio 0.8 LVOT Stroke Volume 55 ml LVOT CO 3.7 l/min LVOT CI 2.3 l/min/m2 Pulmonic Valve Name Value Normal RVOT Doppler RVOT Peak Velocity 65 cm/s RVOT Peak Gradient 2 mmHg PV Doppler PV Peak Velocity 82 cm/s PV Peak Gradient 3 mmHg Mitral Valve Name Value Normal MV Diastolic Function MV E Peak Velocity 89 cm/s MV A Peak Velocity 129 cm/s MV E/A 0.7 MV Decel Time (PW) 204 ms Tricuspid Valve Name Value Normal TV Regurgitation Doppler TR Peak Velocity 232 cm/s TR Peak Gradient 22 mmHg Estimated PAP/RSVP RA Pressure 5 mmHg <=5 PA Systolic Pressure 27 mmHg <36 RV Systolic Pressure 27 mmHg <36 TV Annular TDI TV Lateral Hollie s' Velocity 14.2 cm/s >=9.5 Aorta Name Value Normal Ascending Aorta Ao Root Diameter (MM) 2.9 cm Ao Root Diam Index (MM) 1.8 cm/m2 Aortic Valve Name Value Normal AV Doppler AV Peak Velocity 103 cm/s AV Peak Gradient 4 mmHg AV Mean Gradient 3 mmHg AV VTI 23 cm AV Area (Cont Eq VTI) 2.4 cm2 >=3.0 AV Area (Cont Eq Tesfaye) 2.3 cm2 AV DI (Tesfaye) 0.79 AV Regurgitation 2D LVOT Area 2.9 cm2 Ventricles Name Value Normal LV Dimensions 2D/MM IVS Diastolic Thickness (2D) 0.7 cm 0.6-1.0 IVS Diastole Thickness (MM) 0.7 cm 0.6-0.9 LVID Diastole (2D) 4.3 cm 3.8-5.2 LVID Diastole (MM) 5.3 cm 3.8-5.2 LVIW Diastolic Thickness (2D) 0.9 cm 0.6-0.9 LVIW Diastolic Thickness (MM) 0.7 cm 0.6-0.9 LVID Systole (2D) 2.8 cm 2.2-3.5 LVID Systole (MM) 3.0 cm 2.2-3.5 LVOT Diameter 1.9 cm LV Mass (2D Cubed) 113.33 g 67.00-162.00 LV Mass Index (2D Cubed) 70 g/m2 43-95 Relative Wall Thickness (2D) 0.43 <=0.42 LV Mass (MM Cubed) 127.36 g 67.00-162.00 LV Mass Index (MM Cubed) 79 g/m2 43-95 Relative Wall Thickness (MM) 0.27 LV Fractional Shortening/Ejection Fraction 2D/MM LV Fractional Shortening (2D) 34 % 27-45 LV Fractional Shortening (MM) 43 % 27-45 LV EF (MM Teichholz) 73 % LV EF (2D Teichholz) 64 % LV Diastolic Volume (4C MOD) 54 ml LV EF (4C MOD) 60 % LV Diastolic Volume (2C MOD) 39 ml LV EF (2C MOD) 56 % LV Diastolic Volume (BP MOD) 46 ml 46-106 LV Diastolic Volume Index (BP MOD) 29 ml/m2 29-61 LV Systolic Volume (BP MOD) 19 ml 14-42 LV Systolic Volume Index (BP MOD) 12 ml/m2 8-24 LV EF (BP MOD) 58 % 54-74 LV Diastolic Length (4C) 7.0 cm LV Systolic Length (4C) 6.2 cm LV Stroke Volume (4C MOD) 32 ml Atria Name Value Normal LA Dimensions LA Dimension (MM) 3.5 cm 2.7-3.8 LA Volume (4C A-L) 40 ml LA Volume (BP A-L) 51 ml RA Dimensions RA Systolic Major [place] Length (4C) 4.6 cm 2.2-2.8 RA Area (4C) 11.5 cm2 <=18.0 Report Signatures
[2024-09-11 13:28] LABS: Anion Gap 11 mmol/L (4-12); Blood Urea Nitrogen 16 mg/dL (7-17); Calcium 9.6 mg/dL (8.4-10.2); Carbon Dioxide 27 mmol/L (22-30); Chloride 101 mmol/L (98-107); Estimated Glomerular Filt Rate 55; Glucose 82 mg/dL (65-110); Potassium 3.9 mmol/L (3.4-5.0); Sodium 139 mmol/L (137-145)
== END 2024-09-11 12:10 | disposition home or self-care (01) ==
PROVIDERS: PCP Family Medicine; Visit Provider Student in an Organized Health Care Education/Training Program
DX: N28.9 Disorder of kidney and ureter, unspecified (principal); R60.9 Edema, unspecified
CPT/HCPCS: 36415; 80048; 93306

== ENCOUNTER 2024-10-23 08:41 | Emergency (ER) | payer MEDICARE, OTHER, SELFPAY ==
[2024-10-23 08:54] VITALS: BP 149/80; PULSE 102; RESP 16; TEMP 36.7; O2SAT 97
--- NOTE | 2024-10-23 08:54 | ED_ITS ---
HPI - Back Pain/Injury General Chief Complaint: Back Pain/Injury Stated Complaint: Lower Back Pain Time Seen by Provider: 10/23/24 08:43 Source: patient Mode of arrival: ambulatory Limitations: no limitations History of Present Illness HPI Narrative: Patient is an 89-year-old female who presents with right low back pain that she woke up with this morning. Denies any injury, change in activity or urinary symptoms. Patient states she has chronic left hip pain. Has not taken any over the counter medication. Denies any loss of bowel or bladder, numbness, tingling or weakness to extremities. Denies any fever, chills, nausea, vomiting, diarrhea. Related Data Allergies Allergy/AdvReac Type Severity Reaction Status Date / Time adhesive tape Allergy Severe Blister Verified 10/23/24 08:52 Review of Systems Review of Systems: All systems reviewed & are unremarkable except as noted in HPI and below Constitutional: Constitutional: Denies body ache(s), Denies chills, Denies fatigue, Denies fever(s), Denies headache(s), Denies malaise and Denies weakness Eyes: Eyes: Denies blurry vision, Denies irritation and Denies loss of vision ENT: Denies otalgia, Denies headache(s), Denies nasal discharge, Denies sinus pain and Denies sore throat Cardiovascular: Cardiovascular: Denies chest pain, Denies irregular heart rhythm and Denies dyspnea Respiratory: Respiratory: Denies dyspnea Gastrointestinal: Gastrointestinal: Denies abdominal pain, Denies melena, Denies hematochezia, Denies diarrhea, Denies nausea and Denies vomiting Musculoskeletal: Musculoskeletal: Reports back pain, Denies myalgias and Denies arthralgias Integumentary/Breasts: Skin/Breast: Denies pruritus and Denies rash Neurologic: Denies headache(s), Denies loss of vision and Denies weakness Psychiatric: Psychiatric: Reports no additional psychiatric complaints Endocrine: Endocrine: Denies fatigue PMFSH Past Medical History Medical History Anxiety GERD (gastroesophageal reflux disease) Surgical History Surgical History H/O hemorrhoidectomy Hx of appendectomy History of tonsillectomy and adenoidectomy Family History Family History Other Alcoholism Heart disease Hypertension Social History Social History Smoking status: Never smoker Second hand tobacco smoke exposure: No Alcohol intake: never Substance use: never Substance use type: does not use Lack of Transportation: No Lack of Food: Never True Current Housing: I Have Housing Concerned About Future Housing: No Difficulty Paying Gas/Electric Bills: No Difficulty Paying for Meds: No Currently Unemployed: No Education: High School Diploma/GED Difficulty w/ Childcare or Family Care: No Living arrangements: with family Occupation/Education: retired Gender identity (if verbalized by the patient): Female Sexual Orientation (if Verbalized by the Patient): Straight or Heterosexual Spiritual care concerns: No Agree to blood products: Yes Comments At time of signature, agree with nursing past medical, surgical, social and family history. There is no relevant family history pertinent to the presenting complaint. Exam Const: General: cooperative, healthy appearing, comfortable, no acute distress and well nourished Nutritional Appearance: well nourished Orientation/consciousness: patient oriented x3 Limitations: no limitations HENMT: Head: normal to inspection, normocephalic and atraumatic Ears: hearing grossly normal bilaterally and external ears normal Face/Nose/Sinus: Normal external nose present, normal facial exam and face symmetric Face and sinus: normal facial exam and face symmetric Mouth: Yes lip normal Eyes: General: appearance normal, both eyes and all related structures Al ignment and Position: alignment normal and position normal Periorbital: periorbital findings normal Eyelids: eyelids normal Pupils: Equal, round and reactive pupils present EOM: EOMs intact bilaterally Neck: Neck: normal visual inspection, full ROM and supple Chest: Chest palpation & inspection: normal inspection of the chest Resp: Effort & Inspection: normal respiratory effort and able to speak in complete sentences Auscultation: clear to auscultation bilaterally Cardio: Rate: regular rate Rhythm: regular rhythm Heart sounds: S1 normal heart sound present and S2 normal heart sound present GI: Inspection: normal to inspection Back/Spine/Pelvis: Back: no CVA tenderness Cervical Spine: normal cervical lordosis Thoracic/Lumbar Spine: thoracic and lumbar spine normal to inspection, pain with thoraco-lumbar ROM, paraspinal muscle tenderness on the right in the mid lumbar and in the lower lumbar, No thoracic spinal tenderness and No lumbar spinal tenderness Pelvis: buttock tenderness on the right and sciatic notch tenderness on the right Sacroiliac joints: on the right tender to palpation Skin: General skin exam: normal color and no rashes or lesions noted Neuro: General: patient oriented x3 and moves all extremities Cranial nerve s: Yes Equal, round and reactive pupils present Speech: normal speech Gait exam (Neuro): Normal gait present Extrem: General: normal to inspection, full ROM and no edema Psych: Appearance: grossly normal and well kempt Mental Status: mental status grossly normal Speech and movement: Normal speech and movement present Affect: normal affect Attitude: cooperative Thought process: Normal thought process present Course Course Emergency Course: Patient is aware of diagnosis, understands and agrees to treatment plan. Anticipatory guidance given. Patient agrees to follow-up as directed and is aware of reasons to seek care at the emergency department. Portions of this record may have been created with voice recognition software Level of Care: Express Care Visit Vital Signs Vital signs: Reviewed MDM - Back Pain/Injury MDM Narrative Medical decision making narrative: Discussed risks and benefits of muscle relaxers and steroid use. Through shared decision making patient is more comfortable with alternating Tylenol and ibuprofen and applying lidocaine patch. Patient states she is able to apply patch herself or she has her sister at home to help her. Pt well hydrated appearing, in no respiratory distress, hemodynamically stable. Recommend supportive care. The patient is stable at time of discharge the clinical impression was discussed and the patient was given the opportunity to ask questions, which were addressed as completely as possible given the information available at present. Anticipatory guidance and return to care precautions were discussed and the importance of primary care follow-up was stressed and encouraged. The patient voiced understanding of the plan, indications to return, and the need for follow-up. Exam findings show no acute concerns or changes Patient is appropriate for outpatient treatment and follow-up. Differential Diagnosis Differential diagnosis: Likely lumbar radiculopathy, sciatica and strain of lumbar region Medical Records Attestation: I reviewed the patient's medical records. Discharge Plan Discharge Clinical Impression: Sciatica Qualifiers: Laterality: right Qualified Code(s): M54.31 - Sciatica, right side Patient Disposition: Home Condition: Stable Instructions: Sciatica (ED) Additional Instructions: For pain, you may take: Tylenol 1000mg by mouth every 6 hours. Do not exceed 4000mg in 24 hours. Advil (Ibuprofen) 600 mg by mouth every 6 hours. Do not exceed 2400mg in 24 hours. Take Motrin alternating with Tylenol for pain and fever alternating every 3 hours. 8 AM: Tylenol 11 AM: Ibuprofen 2 PM: Tylenol 5 PM: Ibuprofen 8 PM: Tylenol 11 PM: Ibuprofen 2 AM: Tylenol 5 AM: Ibuprofen Use lidocaine patch 12 hours on and 12 hours off Exercise:Combine aerobic exercise, like walking or swimming, with specific exercises to keep the muscles in your back and abdomen strong and flexible.bed rest is not recommended. Proper Lifting:Be sure to lift heavy items with your legs, not your back. Do not bend over to pick something up. Keep your back straight and bend at your knees. Weight:Maintain a healthy weight. Being overweight puts added stress on your lower back. Avoid Smoking:Both the smoke and the nicotine cause your spine to age faster than normal. Proper Posture:Good posture is important for avoiding future problems. A therapist can teach you how to safely stand, sit, and lift. Use warm moist heat or ice to help with pain. Follow up with Primary provider in 2-3 days, This may become a chronic condition and they will be the one to help manage your pain and order additional testing. Follow-up with your doctor for further care and evaluation or seek ER if you develop problems with bladder/bowel function, weakness or loss of feeling in one or both of your legs. Your blood pressure was elevated above 120/80 today at Urgent Care. This puts you above the threshold for follow up visit with a primary care provider. High blood pressure does not usually cause any symptoms, however it may lead to kidney failure, stroke, heart disease just to name a few if untreated . Many people are anxious when seeing a provider or nurse. As a result, you are not diagnosed with hypertension at this time unless your blood pressure is persistently high at two office visits at least one week apart. Some things that can help lower blood pressure are lifestyle modifications, such as light exercise, decreased salt in diet, and weight loss. It is important to follow up with a PCP about this within 1 week. Patient Language: Greenlandic Prescriptions: New ibuprofen 600 mg tablet 600 mg PO TID PRN (Reason: pain) Qty: 30 0RF lidocaine 5 % adhesive patch,medicated 1 patch topical DAILY Qty: 15 0RF Rx Instructions: leave on most painful area for up to 12 hrs No Action potassium chloride [Klor-Con 10] 10 mEq tablet extended release 10 meq PO DAILY Qty: 30 0RF polyethylene glycol 3350 [Miralax] 17 gram/dose powder 17 g PO DAILY Qty: 238 0RF ergocalciferol (vitamin D2) 1,250 mcg (50,000 unit) capsule 1,250 mcg PO WEEKLY Qty: 12 1RF sertraline 50 mg tablet 50 mg PO DAILY Qty: 90 1RF losartan 50 mg tablet 50 mg PO DAILY Qty: 90 3RF pravastatin 20 mg tablet 20 mg PO DAILY Qty: 90 3RF diltiazem HCl 60 mg capsule,extended release 12 hr 60 mg PO Q12H Qty: 180 1RF omeprazole 20 mg capsule,delayed release(DR/EC) 20 mg PO DAILY Qty: 90 1RF alendronate 70 mg tablet 70 mg PO WEEKLY Qty: 12 6RF Rx Instructions: Take upon arising with full glass of water and nothing po for 60 minutes after dosing clonazepam 1 mg tablet 1 mg PO BID Qty: 180 0RF calcitriol 0.25 mcg capsule 0.25 mcg PO DAILY Qty: 90 0RF Follow-up/Referrals: Emma Almonte MD [Primary Care Provider] - 3 Days Time of Disposition: 09:28
== END 2024-10-23 09:35 | disposition home or self-care (01) ==
PROVIDERS: Emergency Provider Nurse Practitioner Family; PCP Family Medicine
DX: M54.31 Sciatica, right side (principal); K21.9 Gastro-esophageal reflux disease without esophagitis; F41.9 Anxiety disorder, unspecified
CPT/HCPCS: 99213; G0463

== ENCOUNTER 2025-01-19 10:25 | Outpatient (CLI) | payer MEDICARE, OTHER, SELFPAY ==
--- NOTE | 2025-01-19 12:00 | NEURO_ITS ---
IMPRESSION: # Complains of numbness of legs. Non-Diabetic. History of Botox injections in legs over 15years ago. ? # Normal Nerve Conduction Study . ? # Normal needle/EMG exam without neurogenic changes, myotonia or fibrillations. Nerve Conduction Studies ?Stim Site NR Peak (ms) P-T Amp (?V) Site1 Site2 Delta-P (ms) Dist (cm) Tesfaye (m/s) Left Sup Fibular Anti Sensory (Ant Lat Mall) 14 cm ? 3.2 7.7 14 cm Ant Lat Mall 3.2 16.0 50 Right Sup Fibular Anti Sensory (Ant Lat Mall) 14 cm ? 3.1 14.3 14 cm Ant Lat Mall 3.1 16.0 52 Left Sural Anti Sensory (Lat Mall) Calf ? 3.5 9.7 Calf Lat Mall 3.5 16.0 46 Right Sural Anti Sensory (Lat Mall) Calf ? 3.9 5.8 Calf Lat Mall 3.9 16.0 41 ?Stim Site NR Onset (ms) O-P Amp (mV) Site1 Site2 Delta-0 (ms) Dist (cm) Tesfaye (m/s) Left Peroneal Motor (Vastus Med) Ankle ? 3.9 0.6 Popit Ankle 7.0 35.0 50 Popit ? 10.9 0.7 Right Peroneal Motor (Vastus Med) Ankle ? 3.4 4.5 Popit Ankle 7.0 35.0 50 Popit ? 10.4 4.3 Left Tibial Motor (Abd Jaffe Brev) Ankle ? 4.1 1.9 Knee Ankle 7.4 36.0 49 Knee ? 11.5 1.4 Right Tibial Motor (Abd Jaffe Brev) Ankle ? 3.9 2.2 Knee Ankle 8.0 36.0 45 Knee ? 11.9 0.9 F Wave Studies ?NR F-Lat (ms) L-R F-Lat (ms) Left Peroneal (Mrkrs) (EDB) ? 48.76 2.81 Right Peroneal (Mrkrs) (EDB) ? 45.95 2.81 Left Tibial (Mrkrs) (Abd Hallucis) ? 48.65 3.04 Right Tibial (Mrkrs) (Abd Hallucis) ? 45.61 3.04 Electromyography ?Side Muscle Nerve Root Ins Act Fibs Amp Dur Recrt Comment Right AntTibialis Dp Br Fibular L4-5 Nml Nml Nml Nml Nml Right Gastroc Tibial S1-2 Nml Nml Nml Nml Nml Right Fibularis Long Sup Br Fibular L5-S1 Nml Nml Nml Nml Nml Right Flex Dig Long Tibial L5-S2 Nml Nml Nml Nml Nml Right Ext Dig Brev Dp Br Fibular L5, S1 Nml Nml Nml Nml Nml Right QuadratusFem QuadFemoris L4-5, S1 Nml Nml Nml Nml Nml Left AntTibialis Dp Br Fibular L4-5 Nml Nml Nml Nml Nml Left Gastroc Tibial S1-2 Nml Nml Nml Nml Nml Left Fibularis Long Sup Br Fibular L5-S1 Nml Nml Nml Nml Nml Left Flex Dig Long Tibial L5-S2 Nml Nml Nml Nml Nml Left Ext Dig Brev Dp Br Fibular L5, S1 Nml Nml Nml Nml Nml Left QuadratusFem QuadFemoris L4-5, S1 Nml Nml Nml Nml Nml
== END 2025-01-19 10:26 | disposition home or self-care (01) ==
LOC: ANHNEURO 10:26
PROVIDERS: PCP Family Medicine; Visit Provider Podiatrist Foot & Ankle Surgery
DX: G62.9 Polyneuropathy, unspecified (principal); R20.0 Anesthesia of skin; Z92.29 Personal history of other drug therapy
CPT/HCPCS: 95886; 95910

== ENCOUNTER 2025-01-27 12:22 | Observation (INO) | payer MEDICARE, OTHER, SELFPAY ==
--- OUTSIDE RECORDS SUMMARY | 2014-04-09 11:15 | XMS_ITS | Continuity of Care Document ---
Author Organization [facility] Address [address] [place] [address] Phone Care Team Providers Care Vitamin Manager Name Role Phone Unavailable Unavailable Unavailable Allergies, Adverse Reactions, Alerts Substance Reaction Status Criticality Penicillins itching Active No Information Medications Medication Instructions Dosage Effective Dates (start - stop) Status Comments Thera Tears 0.25 % drops in a dropperette 1 gtt ou QID and prn - Active losartan-hydrochlorothia zide 50 mg-12.5 mg tablet 1 tablet daily - Active Diltia XT 120 mg capsule, extended release take 1 capsule by oral route every day - Active CLONAZEPAM 1 mg ORAL TABLET take 1 tablet by oral route in AM and 1/2 tab at HS - Active CALCIUM CARBONATE/VITAMIN D3 600 mg calcium (1,500 mg)-800 unit ORAL T daily - Active B Complex 100 100 mg-2 mg-100 mg-2mg-2mg/mL Injectable Solution 1 daily - Active cholecalciferol (vitamin D3) 5,000 unit capsule daily - Active Procedures Procedure Date <content ID='ProcedureDescri ption_0' xmlns='urn:[email or web address]:[email or web address]'>Visual Field Exam W/i&r; Inter</content> Ophth Serv: Med Exam; Interm E 15 <content ID='ProcedureDescri ption_2' xmlns='[email or web address]:[email or web address]'>Visual Field Exam W/i&r; Inter</content> Ophth Serv: Med Exam; Interm E 14 Postop F/u Visit Incld Global 4 Postop F/u Visit Incld Global 4 Postop F/u Visit Incld Global 4 Postop F/u Visit Incld Global 4 Repr Blepharoptosis; Resect-ex 14 Ophth Serv: Med Exam; Interm E 14 Preop <content ID='ProcedureDescri ption_11' xmlns='[email or web address]:[email or web address]'>Visual Field Exam W/i&r; Exten</content> Ext Ocular Photo W/i&r Documnt 14 Ophth Serv: Med Exam; Comp Est 14 Transfer To Be Used By Billing Dept Only Offic/outpt E&m New Mod Sever 4 [employer] Advance Directives Directive Yes / No Effective Date File Name No Information Encounters Encounter Description Practice Location Reason(s) For Visit Diagnoses Date Provider Providers Copied on Encounter [facility], [address], [place], [place], [address], [place] tel:[phone] [facility] visual field and recheck (chief complaint) Ptosis Of Eyelid Nos 5 No Information [facility], [address], [place], [place], [address], [place] tel:[phone] [facility] Visual field and lid evaluation (chief complaint) Ptosis Of Eyelid NosLens Replacement Nec 4 No Information [facility], [address], [place], [place], [address], [place] tel:[phone] [facility] No Information 4 No Information [facility], [address], [place], [place], [address], [place] tel:[phone] [facility] No Information 4 No Information [facility], [address], [place], [place], [address], [place] tel:[phone] [facility] No Information 4 No Information [facility], [address], [place], [place], [address], [place] tel:[phone] [facility] No Information 4 No Information [facility], [address], [place], [place], [address], [place] tel:[phone] [facility] No Information 4 No Information [facility], [address], [place], [place], [address], [place] tel:[phone] [facility] No Information 4 No Information [facility], [address], [place], [address], [place] tel:[phone] [facility] Ptosis Of Eyelid Nos 4 No Information [facility], [address], [place], [address], [place] tel:[phone] [facility] No Information 4 No Information [facility], [address], [place], [place], [address], [place] tel:[phone] [facility] Lens Replacement Nec 4 No Information Offic/outpt E&m [facility], [address], [place], [place], [address], [place] tel:[phone] [facility] Ptosis Of Eyelid Nos 4 Anabell Klein. [address], [place], [address], [place]. tel:[phone] Referring Provider: Latoya Rodas, [address], [place], [address]. tel:[phone] Family History Family Member Type Diagnosis Age At Onset Half brother (M) Problem (finding) Heart disease Payers Payer name Insurance type Covered alliance party ID Authoriza tion(s) [place] [id number] Cigna Open Access Plus CI [id number] Social History Type Description Quantity Date Captured Comments Alcohol Use Details Unknown Caffeine Use Details Unknown Tobacco Use Status Non-smoker Smoking Status Never smoker Non-Smoking Tobacco Use Details : No Details Available : No Details Available Sex Female Chief Complaint And Reason For Visit From encounter dated '04/09/2014 16:15'. visual field and recheck (chief complaint). Description: The 78 year old female presents for visualfield and three month recheck of her lids in both eyes. Symptom(s) affect both near and far vision.The condition is not any better. Patient asked about AT and fish oil. Svitlana's @ 3 min was 5 OD and 4 OS. Reason For Referral Reason For Referral No Information History Of Present Illness Encounter Date Complaint History Of Prese nt Illness visual field and recheck The 78 year old female presents for visual field and three month recheck of her lids in both eyes. Symptom(s) affect both near and far vision. The condition is not any better. Patient asked about AT and fish oil. Svitlana's @ 3 min was 5 OD and 4 OS. Visual field and lid evaluation The 78 year old female presents for Visual field and 5 month lid evaluation in the left eye more than right. Symptom(s) affect near vision. The symptom is constant. The condition is not any better. She says that she has to sometimes pull her lid up to see and also tilts her head back to see better. Functional Status Date Functional Assessmen t No Information Instructions Date Instruction Additional Infor alonzo Ptosis Of Eyelid Nos , OU - Superior 64 point screening OD decrease to within 30 degrees of fixation an improvement of 25 degrees laterallyOS drcrease to within 25 degrees fixation adn improvement of 30 degrees The right is normal and the left has improved 50% since surgery although there is still a little superior field decrease Related to Ptosis Of Eyelid Nos Lens Replacement Nec, OU - Stabl e. Related to Lens Replacement Nec Ptosis Of Eyelid Nos , OS - Superior 64 Point taped and untaped OUOD improved superiorly 20 degrees, OS improved 30 degrees. I think the right eye is fine. The left eye looks okay on the VF. If it bothers her because the APPLE hangs down more than the right eye based on the vf's she can elect to go back to surgery for OS only. Discussed with pt. that the lids will not be exactly the same. Pt. instructed to use AT's several times daily. I suggest trying the vf at the end of the day. Related to Ptosis Of Eyelid Nos - Levator aponeurosi s resection improved OD but not OS. I explained I felt it was best to allow several months to pass and all the inflammation and swelling go down OS before we return to operate on APPLE again. She will continue to use tears 4-6 times daily. 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 Pt. will continue AT prn ou and swetha. for 3 more days. No shower shampoo for 3 more day. Related to Ptosis - Successful Ptosis surgery BUL. Demonstrated in office how to use swetha and pt will use tobrex 3 times dailuy -Continuous ice today and tomorrow 4 X a day for 20 minutes at a time. Related to Ptosis Of Eyelid Nos - Pt elects to have surghery. Discussed complications like retrobulbar hemorrhage or eye perferation and vision loss were discussed. Other complications like ptosis remaining, double vision, dry eye, irritation, asymmetry scarring, infection and others were reviewed. The importance of not being on blood thinners at least 10 days before surgery was understood by pt. Ms Randle wants bilateral ptosis repair to improve her vision and visual ferreira. Related to Ptosis Of Eyelid Nos - Pt elects to have levatror repair OU on 06/23/13 at [facility]. Related to Ptosis Of Eyelid Nos - Superior 64 point screening tests for ptosis OD improved > 30 degreesOS improved > 30 degrees with 40 % improvement. Discussed risks (infection, bruising, bleeding), loss of vision due to retrobulbar hemorrhage, perforation of eye and endophthalmitis infection lid or orbit infection. kin infection, scarring, double vision, and other problems Lids will not be symmetric purpose is to improve VF an ability to read. I reviewed benefits of surgery like reading and answered questions. I told her she should not take aspirin blood thinners or herbal blood thinners. She does not use any of these. There are no mysthenia issues and no thryoid problems. Blood test were negative Related to Ptosis Of Eyelid Nos - Stable. Related to Lens Replacement Nec - I am going to orde r blood work to rule out Myasthenia Gravis and thyroid disease. I am ordering Acetycholine blocking and binding antibody, TSH, T4. External photos taken today, I am ordering a 64 point ptosis VF. Discussed risks (infection, bruising, bleeding), loss of vision due to retrobulbar hemorrhage ete perforation and infection. Lids will not be symmetric purpose is to improve VF an ability to read. I reviewed the and benefits of surgery. Related to Ptosis Of Eyelid Nos Assessments Type Assessment Date No Information Patient Care Teams Name Effective Dates (start - stop) Status Members No Information
--- OUTSIDE RECORDS SUMMARY | 2014-04-09 11:15 | XMS_ITS | Continuity of Care Document ---
Author Organization [facility] Address [address] [place] [address] Phone Care Team Providers Care Senior Power Plant Operator Name Role Phone Unavailable Unavailable Unavailable Allergies, [...] Diagnoses Date Provider Providers Copied on Encounter [facility], [address], [place], [place], [address], [place] tel:[phone] [facility] visual field and recheck (chief complaint) Ptosis Of Eyelid Nos 5 No Information [facility], [address], [place], [place], [address], [place] tel:[phone] [facility] Visual field and lid evaluation (chief complaint) Ptosis Of Eyelid NosLens Replacement Nec 4 No Information [facility], [address], [place], [place], [address], [place] tel:[phone] [facility] No Information 4 No Information [facility], [address], [place], [place], [address], [place] tel:[phone] [facility] No Information 4 No Information [facility], [address], [place], [place], [address], [place] tel:[phone] [facility] No Information 4 No Information [facility], [address], [place], [place], [address], [place] tel:[phone] [facility] No Information 4 No Information [facility], [address], [place], [place], [address], [place] tel:[phone] [facility] No Information 4 No Information [facility], [address], [place], [place], [address], [place] tel:[phone] [facility] No Information 4 No Information [facility], [address], [place], [place], [address], [place] tel:[phone] [facility] Ptosis Of Eyelid Nos 4 No Information [facility], [address], [place], [place], [address], [place] tel:[phone] [facility] No Information 4 No Information [facility], [address], [place], [place], [address], [place] tel:[phone] [facility] Lens Replacement Nec 4 No Information Offic/outpt E&m [facility], [address], [place], [place], [address], [place] tel:[phone] [facility] Ptosis Of Eyelid Nos 4 Anabell Klein. [address], [place], [address], [place]. tel:[phone] Referring Provider: Latoya Rodas, [address], [place], [address]. tel:[phone] Family History Family Member Type Diagnosis Age At Onset Half brother (M) Problem (finding) Heart disease Payers Payer name Insurance type Covered democrat ID Authoriza tion(s) [place] - [place] [id number] Cigna Open Access Plus CI [id number] Social History Type Description Quantity Date Captured [...] have levatror repair OU on 06/23/13 at [facility]. Related to Ptosis Of Eyelid Nos - [...]
[2025-01-27] VITALS (7 sets, daily range): BP systolic 145–172; BP diastolic 76–80; PULSE 74–97; RESP 16–21; TEMP 36.6–36.7; O2SAT 96–100; BMI 24.6
--- NOTE | ~2025-01-27 | XR_ITS ---
Examination: XR chest 2V Clinical History: indigestion Comparison: None Technique: PA and Lateral Findings: Cardiomediastinal silhouette normal size and configuration. Lungs clear. Tiny calcified granuloma left apex. No acute bony abnormality. IMPRESSION: 1. No acute cardiopulmonary findings. Reviewed, dictated and finalized at location R.
--- NOTE | 2025-01-27 12:24 | ECG_ITS ---
Test Date: 2025-01-27 12:38:06 Measurements Intervals [place] Rate: 90 P: 5 VA: 186 QRS: -57 QRSD: 124 T: 56 QT: 370 QTc: 453 Interpretive Statements SINUS RHYTHM LEFT AXIS DEVIATION LEFT BUNDLE BRANCH BLOCK BASELINE ARTIFACT- I, II, III, AVR, AVL, AVF, V1-V2 ABNORMAL ECG No previous ECG available for comparison Electronically Signed On 01-27-2025 13:18:46 CDT by Todd Saul D.O.
[2025-01-27 12:49] LABS: Hematocrit 43.3 % (37.0-47.0); Hemoglobin 13.6 g/dL (12.0-15.0); Immature Granulocyte Percent A 0.3 % (0-0.5); Lymphocytes Absolute Auto 2.07 K/mm3 (0.9-3.2); Mean Corpuscular HGB Conc 31.4 g/dl (32-36); Mean Corpuscular Hemoglobin 27.8 pg (26-34); Mean Corpuscular Volume 88.5 fl (80-100); Nucleated Red Blood Cells Absolute Auto 0.000 K/mm3 (0.0-0.012); Nucleated Red Blood Cells Perc 0.0 % (0.0-0.2); Platelet Count Result 220 k/mm3 (150-375); Red Blood Count 4.89 M/mm3 (4.2-5.4); White Blood Count 8.7 K/mm3 (4.5-10.0)
[2025-01-27 12:58] LABS: INR 1.0; Prothrombin Time 13.2 Seconds (11.1-14.7)
[2025-01-27 12:59] LABS: Partial Thromboplastin Time 26.6 Seconds (22.3-36.8)
[2025-01-27 13:19] LABS: Alanine Aminotransferase 19 U/L (6-35); Albumin Level 4.5 g/dL (3.5-5.1); Alkaline Phosphatase 103 U/L (38-126); Anion Gap 9 mmol/L (4-12); Aspartate Amino Transferase 29 U/L (14-36); Bilirubin,Total 0.5 mg/dL (0.2-1.3); Blood Urea Nitrogen 14 mg/dL (7-17); Calcium 9.9 mg/dL (8.4-10.2); Carbon Dioxide 27 mmol/L (22-30); Chloride 101 mmol/L (98-107); Estimated CRCL calculation 29 ml/min; Estimated Glomerular Filt Rate 58; Glucose 132 mg/dL (65-110); Lipase 99 U/L (23-300); Potassium 3.9 mmol/L (3.4-5.0); Sodium 137 mmol/L (137-145); Total Protein 7.4 g/dL (6.3-8.2)
[2025-01-27 13:31] LABS: Troponin I < 0.012 ng/mL (0.000-0.034)
--- OUTSIDE RECORDS SUMMARY | 2025-01-27 13:37 | XMS_ITS | Patient Health Record ---
Author Organization [facility] Address [address] [place] [address] Care Team Providers Care Supervisor Reactor Fueling Name Role Phone Jonas Barlow Unavailable [phone] Reason For Referral No Information Medications Medication SIG (Take, Route, Frequency, Duration) Notes Start Date End Date Status Pantoprazole Sodium 40 MG Tablet Delayed Release Oral 07/19/2022 Active Furosemide 20 MG Tablet Oral 07/19/2022 Active Fluticasone Propionate Diskus 50 MCG/ACT Aerosol Powder Breath Activated Inhalation *Reorder from [employer] for eRx and Interaction Alerts* 07/19/2022 Active Cetirizine HCl 10 MG Tablet Oral 07/19/2022 Active Losartan Potassium 50 MG Tablet Oral 07/19/2022 Active Pravastatin Sodium 20 MG Tablet Oral 07/19/2022 Active Ergocalciferol 1.25 MG (40712 UT) Capsule Oral 07/19/2022 Active clonazePAM 1 MG Tablet Oral 07/19/2022 Active dilTIAZem HCl ER Beads 120 MG Capsule Extended Release 24 Hour Oral 07/19/2022 Active Calcitriol 0.25 MCG Capsule Oral 07/19/2022 Active Klor-Con M10 10 MEQ Tablet Extended Release Oral 07/19/2022 Active Spironolactone 25 MG Tablet Oral 07/19/2022 Active Meclizine HCl 25 MG Tablet Oral 07/19/2022 Active Immunizations Vaccine Route Administration Date Status Comme nts Pfizer Biontech Covid-19 Vac cine 2nd dose Unknown 11/21/2020 Administered Pfizer Biontech Covid-19 Vac cine 2nd dose Unknown 12/12/2020 Administered Pfizer Biontech Covid-19 Vac cine 2nd dose Unknown 09/12/2021 Administered Zoster Unknown 01/18/2022 Administered Social History Social History Additional Details Category Social Info Options Details Migrated Social History Migrated Social History Alcohol Intake: Occasional 06/29/2022,Tobacco Years: Never smoker 05/16/2022 Plan Of Treatment No Information Insurance Providers Payer Name Payer Address Payer Phone Subscriber Number Group Number Insured Name Patient Relationship to Insured Coverage Start Date Coverage End Date [place]- [place] [address] [place] [phone] [id number] ARTURO BOWEN Self - patient is the insured Aet [address] [place] [address] [id number] ARTURO BOWEN Self - patient is the insured Medical (General) History Surgical History Surgery Date(Month/Year) Tonsilectomy/adenoids
--- OUTSIDE RECORDS SUMMARY | 2025-01-27 13:37 | XMS_ITS | Patient Health Record ---
Author Organization [facility] Billing Info Address [address] [place] [address] [place] [address] Care Team Providers Care Bus And Sys Integration Senior Manager Name Role Phone RADHA BARBARA Primary Care [...] Problem Status W/U Status Risk Notes Problem 133997566 Mixed hyperlipidemia (E78.2) Active confirmed Problem 86215506 Essential hypertension (I10) Active confirmed Problem 346512875 Dyslipidemia (E78.5) Active confirmed Problem Long-term current use of drug therapy (826515476) Encounter for long-term current use of medication (Z79.899) Active confirmed Problem 816282842 Chronic anxiety (F41.9) Active confirmed Problem 745964955 Primary osteoarthritis involving multiple joints (M15.0) Active confirmed Problem 424572007 BMI 26.0-26.9,adult (Z68.26) Active confirmed Plan Of Treatment No Information Insurance Providers Payer Name Payer Address Payer Phone Subscriber Number Group Number Insured Name Patient Relationship to Insured Coverage Start Date Coverage End Date [place] [address] [address] [place], [place] [id number] Saskia Randle Self - patient is the insured 3 8 [employer] NON HMO [address] [place], [place] [id number] Saskia Randle Self - patient is the insured 7 8 Medical (General) History Medical History History ICD Code Primary osteoarthritis involving multipl e joints Mixed hyperlipidemia Essential (primary) hypertension Generalized anxiety disorder Surgical History Surgery Date(Month/Year) appendectomy 1950 tonsillectomy 1950 hemorrhoidectomy Hardware placed in cervial spine 2002
--- OUTSIDE RECORDS SUMMARY | 2025-01-27 13:37 | XMS_ITS | Patient Health Record ---
Author Organization [facility] Address [address] [facility] [address] [place] [address] Reason For Referral No Information Medications Medication SIG (Take, Route, Fr equency, Duration) Notes Start Date End Date Status Protonix 40 MG 1 tablet Orally Once a day; Duration: 90 days 02/09/2022 Active Meclizine HCl 25 MG 1 tablet as needed O rally once a day; Duration: 90 days 02/09/2022 Active Calcitriol 0.25 MCG TAKE [address] [facility] EVERY DAY; Duration: 90 Active Social History Sex Assigned At : Social History Observation Description Sex Assigned At Female Problems Problem Type SNOMED Code ICD Code Onset Dates Problem Status W/U Status Risk Notes Problem Hyperlipidemia (05800548) Hyperlipidemia, unspecified (E78.5) Active confirmed Problem Essential hypertension (07342408) Essential (primary) hypertension (I10) Active confirmed Problem Chronic kidney disease stage 2 (684808322) Chronic kidney disease, stage 2 (mild) (N18.2) Active confirmed Problem Renal osteodystrophy (45667582) Renal osteodystrophy (N25.0) Active confirmed Plan Of Treatment No Information
--- OUTSIDE RECORDS SUMMARY | 2025-01-27 13:37 | XMS_ITS | Clinical Summary ---
Author Organization [facility] [address] Address [address] [place] [address] Care Team Providers Care Catch Basin Cleaner Name Role Phone Alisia Cotto MD [...] Depression Screening 1935 Fall Risk Assessment 1935 Osteoporosis Screening-Bone Density Scan 1935 DTaP/Tdap/Td Vaccine (1 - Tdap) 1948 Hepatitis B Screening 09/22/1953 Well Visit 65+ 2002 Zoster Vaccine (2 of 2) 03/15/2022 01/18/2022 Covid-19 Vaccine (5 - 2024-2 6 season) 2024 09/12/2021, 09/12/2021, 05/15/2021, Additional history exists Influenza Vaccine (#1) 2024 01/10/2022 Pneumococcal vaccine 65+ Completed 01/10/[address] [address] MEDICARE [facility] Address: [facility] [address] [place] [address] Care Teams Catch Basin Cleaner Relationship Specialty Start Date End Date Alisia Cotto MD [address] [place] [address] PCP - General Internal Medicine 07/04/22
[2025-01-27 16:03] LABS: Troponin I < 0.012 ng/mL (0.000-0.034)
--- NOTE | 2025-01-27 17:06 | ED_ITS ---
HPI - General Adult General Chief complaint: Unspecified Stated complaint: heartburn x 2-3 days Time Seen by Provider: 01/27/25 15:10 Source: patient Mode of arrival: ambulatory Limitations: no limitations History of Present Illness HPI narrative: 89-year-old with a history of hypertension, GERD presents to the ER with a complains of midsternal chest pain burning sensation for past 2-3 days. She denies any shortness of breath. He states the pain radiates all the way to her throat at times. No previous history of CAD. Onset (ago): day(s) (3) Radiation: non-radiation Severity: moderate Quality: burning and aching Pain Consistency: intermittent Relieving factors: none Exacerbating factors: none Associated symptoms: denies other symptoms Related Data Allergies Allergy/AdvReac Type Severity Reaction Status Date / Time adhesive tape Allergy Severe Blister Verified 01/27/25 15:22 Review of Systems 2 Constitutional: Constitutional: Reports no additional constitutional complaints Eyes: Eyes: Reports no additional eye complaints ENT: Reports system reviewed and no additional complaints, except as documented Cardiovascular: Cardiovascular: Reports as per HPI Respiratory: Respiratory: Reports no additional respiratory complaints Gastrointestinal: Gastrointestinal: Reports as per HPI Musculoskeletal: Musculoskeletal: Reports no additional musculoskeletal complaints PMFSH Past Medical History Medical History Anxiety GERD (gastroesophageal reflux disease) Surgical History Surgical History H/O hemorrhoidectomy Hx of appendectomy History of tonsillectomy and adenoidectomy Family History Family History Other Alcoholism Heart disease Hypertension Social History Social History Smoking status: Never smoker Second hand tobacco smoke exposure: No Alcohol intake: never Substance use: never Substance use type: does not use Lack of Transportation: No Lack of Food: Never True Current Housing: I Have Housing Concerned About Future Housing: No Difficulty Paying Gas/Electric Bills: No Difficulty Paying for Meds: No Currently Unemployed: No Education: High School Diploma/GED Difficulty w/ Childcare or Family Care: No Living arrangements: with family Occupation/Education: retired Gender identity (if verbalized by the patient): Female Sexual Orientation (if Verbalized by the Patient): Straight or Heterosexual Spiritual care concerns: No Agree to blood products: Yes Exam 2 Narrative: GENERAL: Well-appearing, well-nourished, and in no acute distress. HEAD: Normocephalic, atraumatic. EYES: PERRLA and EOMI. ENT: Nares clear, no rhinorrhea or epistaxis. Mucous membranes moist. NECK: Supple. CHEST: Clear to auscultation. No respiratory distress. HEART: Regular rate and rhythm. No murmur heard. Normal peripheral pulses. ABDOMEN: Soft, nontender, nondistended, normal active bowel sounds. EXTREMITIES: Normal range of motion. No edema. SKIN: Warm, dry, no rash. NEURO: No focal deficits. Alert and oriented x3. PSYCH: Normal mood and affect. Course Course Emergency Course: Patient remained asymptomatic here in the ER. I did inform her about the lab work and the change in EKG. Discussed with cardiology recommended a admission . Discussed with hospitalist accepted the patient Patient had EKG done on 04/10/2022 which was in normal sinus rhythm with old anterior infarct Vital Signs Vital signs: Vital Signs Temperature 36.6 C 01/27/25 12:27 Pulse Rate 97 01/27/25 12:27 Respiratory Rate 16 01/27/25 12:27 Blood Pressure 153/80 H 01/27/25 12:27 Pulse Oximetry 99 01/27/25 12:27 Temperature 36.6 C 01/27/25 12:27 Pulse Rate 74 01/27/25 15:48 Respiratory Rate 16 01/27/25 15:48 Blood Pressure 145/76 H 01/27/25 15:48 Pulse Oximetry 99 01/27/25 15:48 Medical Decision Making Differential Diagnosis Differential Diagnosis: ACS, GERD Medical Records Medical records reviewed: Yes I reviewed the external patient's medical records. Vital Signs Vital Signs: Vital Signs Temperature 36.6 C 01/27/25 12:27 Pulse Rate 97 01/27/25 12:27 Respiratory Rate 16 01/27/25 12:27 Blood Pressure 153/80 H 01/27/25 12:27 Pulse Oximetry 99 01/27/25 12:27 Temperature 36.6 C 01/27/25 12:27 Pulse Rate 74 01/27/25 15:48 Respiratory Rate 16 01/27/25 15:48 Blood Pressure 145/76 H 01/27/25 15:48 Pulse Oximetry 99 01/27/25 15:48 Lab Data 01/27/25 12:40 01/27/25 12:40 Labs: Lab Results 01/27/25 01/27/25 Range/Units 12:40 15:35 WBC 8.7 (4.5-10.0) K/mm3 RBC 4.89 (4.2-5.4) M/mm3 Hgb 13.6 (12.0-15.0) g/dL Hct 43.3 (37.0-47.0) % MCV 88.5 (80-100) fl MCH 27.8 (26-34) pg MCHC 31.4 L (32-36) g/dl RDW 13.8 (11.5-14.5) % Plt Count 220 (150-375) k/mm3 MPV 10.7 H (7.4-10.4) fl Immature Gran % (Auto) 0.3 (0-0.5) % Neut % (Auto) 67.2 (45.5-73.1) % Lymph % (Auto) 23.7 (18.3-44.2) % [place] % (Auto) 7.6 (2.6-8.5) % Eos % (Auto) 0.6 (0-4.4) % Baso % (Auto) 0.6 (0.2-1.2) % Lymph # (Auto) 2.07 (0.9-3.2) K/mm3 [place] # (Auto) 0.7 H (0.1-0.6) K/mm3 Eos # (Auto) 0.1 (0-0.3) K/mm3 Baso # (Auto) 0.1 (0.0-0.1) K/mm3 Abs Immat Gran (auto) 0.03 (0.00-0.031) K/mm3 Absolute Neuts (auto) 5.9 (1.3-6.7) K/mm3 Absolute Nucleated RBC 0.000 (0.0-0.012) K/mm3 Nucleated RBC % 0.0 (0.0-0.2) % PT 13.2 (11.1-14.7) Seconds INR 1.0 APTT 26.6 (22.3-36.8) Seconds Sodium 137 (137-145) mmol/L Potassium 3.9 (3.4-5.0) mmol/L Chloride 101 (98-107) mmol/L Carbon Dioxide 27 (22-30) mmol/L Anion Gap 9 (4-12) mmol/L BUN 14 (7-17) mg/dL Creatinine 0.92 (0.7-1.0) mg/dL Estim Creat Clear Calc 29 ml/min Estimated GFR 58 L (59 - ) Glucose 132 H (65-110) mg/dL Calcium 9.9 (8.4-10.2) mg/dL Total Bilirubin 0.5 (0.2-1.3) mg/dL AST 29 (14-36) U/L ALT 19 (6-35) U/L Alkaline Phosphatase 103 (38-126) U/L Troponin I < 0.012 < 0.012 (0.000-0.034) ng/mL Total Protein 7.4 (6.3-8.2) g/dL Albumin 4.5 (3.5-5.1) g/dL Lipase 99 (23-300) U/L Imaging Data Radiologist's impression: ITS Impressions Chest X-Ray 01/27/25 13:39 IMPRESSION: 1. No acute cardiopulmonary findings. ECG Data EKG #1: ECG completion date: 01/27/25 ECG completion time: 12:38 EKG Interpretation: sinus rhythm (90), no ectopy, LBBB and left axis Discharge Plan Discharge Clinical Impression: LBBB (left bundle branch block) Chest pain Qualifiers: Chest pain type: unspecified Qualified Code(s): R07.9 - Chest pain, unspecified Patient Disposition: Still a Patient Condition: Stable Patient Language: German Prescriptions: No Action ibuprofen 600 mg tablet 600 mg PO TID PRN (Reason: pain) Qty: 30 0RF lidocaine 5 % adhesive patch,medicated 1 patch topical DAILY Qty: 15 0RF Rx Instructions: leave on most painful area for up to 12 hrs potassium chloride [Klor-Con 10] 10 mEq tablet extended release 10 meq PO DAILY Qty: 30 0RF polyethylene glycol 3350 [Miralax] 17 gram/dose powder 17 g PO DAILY Qty: 238 0RF ergocalciferol (vitamin D2) 1,250 mcg (50,000 unit) capsule 1,250 mcg PO WEEKLY Qty: 12 1RF sertraline 50 mg tablet 50 mg PO DAILY Qty: 90 1RF losartan 50 mg tablet 50 mg PO DAILY Qty: 90 3RF pravastatin 20 mg tablet 20 mg PO DAILY Qty: 90 3RF omeprazole 20 mg capsule,delayed release(DR/EC) 20 mg PO DAILY Qty: 90 1RF alendronate 70 mg tablet 70 mg PO WEEKLY Qty: 12 6RF Rx Instructions: Take upon arising with full glass of water and nothing po for 60 minutes after dosing clonazepam 1 mg tablet 1 mg PO BID Qty: 180 0RF diltiazem HCl 60 mg capsule,extended release 12 hr 60 mg PO Q12H Qty: 180 1RF calcitriol 0.25 mcg capsule 0.25 mcg PO DAILY Qty: 90 0RF Follow-up/Referrals: PHYSICIAN,HOTEL ADMINISTRATIVE ASSISTANT [Primary Care Provider, Internal Medicine] Time of Disposition: 17:18
--- OUTSIDE RECORDS SUMMARY | 2025-01-27 17:47 | XMS_ITS | Clinical Summary ---
Author Organization [facility] [address] Address [address] [place] [address] Care Team Providers Care Supervisor Backfilling Name Role Phone Alisia Cotto MD Primary [...] 01/10/2022 Pneumococcal vaccine 65+ Completed 01/10/[address] [place] [address] [address] [place] [address] [facility] Address: [facility] [address] [place] [address] Care Teams Supervisor Backfilling Relationship Specialty Start Date End Date Alisia Cotto MD [address] [place] [address] PCP - General Internal Medicine 07/04/22
[2025-01-27] MEDS: PANTOPRAZOLE SODIUM IV 40 MG VIAL IV PUSH (17:58)
--- NOTE | 2025-01-27 18:35 | PC.NURSE ---
Patient arrived. Tele placed. Admission started.
[2025-01-27 19:44] LABS: Troponin I < 0.012 ng/mL (0.000-0.034)
[2025-01-27] MEDS: dilTIAZem HCL 12 HR 60 MG CAP.12HR PO (22:39)
[2025-01-27] MEDS: clonazePAM (*CRX) 0.5 MG TABLET 1 MG PO (22:39)
[2025-01-28] VITALS (10 sets, daily range): BP systolic 123–147; BP diastolic 58–78; PULSE 71–99; RESP 16–18; TEMP 36.5–36.8; O2SAT 98–99
--- NOTE | 2025-01-28 | ECHO_ITS ---
Patient Info Name: Saskia Randle Age: 89 years : 1935 Gender: Female Ht: 62 in Wt: 134 lbs BSA: 1.64 m2 HR: 87 bpm BP: 147 / 75 mmHg Technical Quality: Good Exam Date: 01/28/2025 12:57 PM Patient Status: I Admit Date: 01/27/2025 Exam Type: CA echo doppler color flow Complete two-dimensional, color flow and Doppler transthoracic echocardiogram is performed. Staff Referring Physician: Ki Tucker MD Duplicate Maker: Sarmad May III Attending Provider: Lucho Roca MD Summary 1. Complete two-dimensional, color flow and Doppler transthoracic echocardiogram is performed. 2. The left ventricle is normal in size and systolic function. The left ventricular ejection fraction is visually estimated to be 60-65%. There is grade 2 diastolic dysfunction. 3. The right ventricle is normal in size and systolic function. 4. There are no significant valvular abnormalities. Left Ventricle The left ventricle is normal in size and systolic function. The left ventricular ejection fraction is visually estimated to be 60-65%. There is grade 2 diastolic dysfunction. Right Ventricle The right ventricle is normal in size and systolic function. Left Atria The left atrium is normal size. Right Atria The right atrium is normal size. Atrial Septum The atrial septum is normal. Aortic Valve The aortic valve is trileaflet and sclerotic. There is no aortic stenosis. There is no aortic regurgitation. Pulmonic Valve The pulmonic valve is not well visualized. There is trace pulmonic valve regurgitation. Mitral Valve The mitral valve is normal. There is no mitral regurgitation. Tricuspid Valve The tricuspid valve is normal. There is trace tricuspid regurgitation. Pericardium/Pleural Prominent epicardial fat pad. There is no pericardial effusion. Inferior Vena Cava Normal inferior vena cava with >50% collapse upon inspiration consistent with normal right atrial pressure, 3 mmHg. Aorta The aortic root at the level of the sinus of Valsalva measures 3.0 cm in diameter. Left Ventricular Outflow Tract Name Value Normal LVOT 2D LVOT Diameter 2.3 cm LVOT Doppler LVOT Peak Velocity 105 cm/s LVOT Peak Gradient 4 mmHg LVOT Mean Gradient 2 mmHg LVOT VTI 20 cm LVOT VTI/AV VTI Ratio 1.0 LVOT Stroke Volume 84 ml LVOT CO 6.7 l/min LVOT CI 4.1 l/min/m2 Pulmonic Valve Name Value Normal PV Doppler PV Peak Velocity 95 cm/s PV Peak Gradient 4 mmHg PV Mean Gradient 2 mmHg PV Regurgitation Doppler CT Peak End Diastolic Velocity 99 cm/s Mitral Valve Name Value Normal MV Doppler MV Peak Gradient 6 mmHg MV Mean Gradient 2 mmHg MV Area (Cont Eq VTI) 3.3 cm2 MV Diastolic Function MV E Peak Velocity 81 cm/s MV A Peak Velocity 116 cm/s MV E/A 0.7 MV Decel Time (PW) 200 ms MV Annular TDI MV E/e' (Septal) 14.8 MV E/e' (Lateral) 12.3 MV E/e' (Average) 13.5 Tricuspid Valve Name Value Normal TV Regurgitation Doppler TR Peak Velocity 171 cm/s TR Peak Gradient 12 mmHg Estimated PAP/RSVP RA Pressure 3 mmHg <=5 PA Systolic Pressure 15 mmHg <36 RV Systolic Pressure 15 mmHg <36 TV Annular TDI TV Lateral Hollie s' Velocity 17.1 cm/s >=9.5 Aortic Valve Name Value Normal AV Doppler AV Peak Velocity 106 cm/s AV Peak Gradient 5 mmHg AV Mean Gradient 3 mmHg AV VTI 19 cm AV Area (Cont Eq VTI) 4.4 cm2 >=3.0 AV Area (Cont Eq Tesfaye) 4.2 cm2 AV DI (Tesfaye) 0.99 AV Regurgitation 2D LVOT Area 4.2 cm2 Ventricles Name Value Normal LV Dimensions 2D/MM IVS Diastolic Thickness (2D) 1.1 cm 0.6-1.0 LVID Diastole (2D) 4.0 cm 3.8-5.2 LVIW Diastolic Thickness (2D) 0.9 cm 0.6-0.9 LVID Systole (2D) 2.6 cm 2.2-3.5 LVOT Diameter 2.3 cm LV Mass (2D Cubed) 134.84 g 67.00-162.00 LV Mass Index (2D Cubed) 82 g/m2 43-95 Relative Wall Thickness (2D) 0.46 <=0.42 LV Fractional Shortening/Ejection Fraction 2D/MM LV Fractional Shortening (2D) 36 % 27-45 LV EF (2D Teichholz) 66 % LV Diastolic Volume (4C MOD) 60 ml LV EF (4C MOD) 59 % LV Diastolic Volume (2C MOD) 50 ml LV EF (2C MOD) 57 % LV Diastolic Volume (BP MOD) 56 ml 46-106 LV Diastolic Volume Index (BP MOD) 34 ml/m2 29-61 LV Systolic Volume (BP MOD) 23 ml 14-42 LV Systolic Volume Index (BP MOD) 14 ml/m2 8-24 LV EF (BP MOD) 58 % 54-74 LV Diastolic Length (4C) 7.1 cm LV Systolic Length (4C) 6.0 cm LV Stroke Volume (4C MOD) 35 ml Atria Name Value Normal LA Dimensions LA Volume (4C A-L) 42 ml LA Volume (BP A-L) 48 ml RA Dimensions RA Systolic Major Alton Length (4C) 4.6 cm 2.2-2.8 RA Area (4C) 14.1 cm2 <=18.0 Report Signatures
--- NOTE | 2025-01-28 08:05 | ECG_ITS ---
Test Date: 2025-01-28 08:14:17 Measurements Intervals [place] Rate: 87 P: 25 DE: 214 QRS: -57 QRSD: 129 T: 69 QT: 386 QTc: 466 Interpretive Statements SINUS RHYTHM WITH FIRST DEGREE AV BLOCK LEFT AXIS DEVIATION LEFT BUNDLE BRANCH BLOCK BASELINE ARTIFACT- I, II, III, AVR, AVL, AVF ABNORMAL ECG Compared to ECG 01/27/2025 12:38:06 First degree AV block now present Electronically Signed On 01-28-2025 08:28:43 CDT by Todd Saul D.O.
[2025-01-28 10:02] LABS: Hematocrit 43.3 % (37.0-47.0); Hemoglobin 13.7 g/dL (12.0-15.0); Mean Corpuscular HGB Conc 31.6 g/dl (32-36); Mean Corpuscular Hemoglobin 27.8 pg (26-34); Mean Corpuscular Volume 87.8 fl (80-100); Platelet Count Result 224 k/mm3 (150-375); Red Blood Count 4.93 M/mm3 (4.2-5.4); White Blood Count 7.5 K/mm3 (4.5-10.0)
[2025-01-28 10:04] LABS: Alanine Aminotransferase 17 U/L (6-35); Albumin Level 4.1 g/dL (3.5-5.1); Alkaline Phosphatase 71 U/L (38-126); Anion Gap 9 mmol/L (4-12); Aspartate Amino Transferase 30 U/L (14-36); Bilirubin,Total 0.5 mg/dL (0.2-1.3); Blood Urea Nitrogen 12 mg/dL (7-17); Calcium 8.9 mg/dL (8.4-10.2); Carbon Dioxide 25 mmol/L (22-30); Chloride 106 mmol/L (98-107); Estimated CRCL calculation 30 ml/min; Estimated Glomerular Filt Rate 58; Glucose 98 mg/dL (65-110); Magnesium 2.2 mg/dL (1.6-2.3); Potassium 3.9 mmol/L (3.4-5.0); Sodium 140 mmol/L (137-145); Total Protein 6.8 g/dL (6.3-8.2)
--- NOTE | 2025-01-28 10:10 | PC.NURSE ---
This patient, Saskia Randle, was transferred to [facility] on 01/28/25 at 1010. Personal belongings sent with patient.
[2025-01-28] MEDS: clonazePAM (*CRX) 0.5 MG TABLET 1 MG PO (10:12)
[2025-01-28] MEDS: ENOXAPARIN 40 MG/0.4 ML SYRINGE SUB-Q (10:12)
[2025-01-28] MEDS: PRAVASTATIN SODIUM 20 MG TABLET PO (10:13)
[2025-01-28] MEDS: PANTOPRAZOLE SODIUM IV 40 MG VIAL IV PUSH (10:13)
[2025-01-28] MEDS: LOSARTAN POTASSIUM 50 MG TABLET PO (10:13)
[2025-01-28] MEDS: MULTIVITAMINS THERAPEUTIC TAB (*BKC) 1 TABLET PO (10:13)
[2025-01-28] MEDS: dilTIAZem HCL 12 HR 60 MG CAP.12HR PO (10:13)
--- NOTE | 2025-01-28 11:59 | PM.CNCAR ---
Assessment and Plan Assessment and plan (1) Chest pain: Qualifiers: Chest pain type: unspecified Qualified Code(s): R07.9 - Chest pain, unspecified Code(s): R07.9 - Chest pain, unspecified Status: Acute (2) LBBB (left bundle branch block): Code(s): I44.7 - Left bundle-branch block, unspecified Status: Acute (3) Hyperlipidemia: Code(s): E78.5 - Hyperlipidemia, unspecified Status: Acute Plan 89-year-old woman with hypertension, hyperlipidemia, and GERD presented with chest discomfort Chest discomfort -she has been ruled out for acute CT with negative biomarkers -currently she is in bed without any chest discomfort and when questioned about house she states it is because she hasn't eaten yet and that is why she has not had chest discomfort Left bundle-branch block -this is apparently new onset -it does appear on telemetry that when the heart rate increases into the 90s, she would developed a left bundle branch block however heart rates in the 60s will be accompanied by narrow complex QRS -likely has advanced conduction disease however no symptomatology at this time to warrant further investigation -will repeat transthoracic echocardiogram to ensure normal biventricular function and structure Hyperlipidemia -continue pravastatin 20 mg every evening History of Present Illness History of Present Illness Consult date/time: 01/28/25 11:59 Requesting physician: Lucho Roca MD Consult reason: Other Reason For Visit: Chest Pain/New Onset LBBB Narrative: 89-year-old woman with hypertension, hyperlipidemia, and GERD presented with chest discomfort. States that she has a history of GERD for which she feels sensation of burning in her midsternum that would radiate upwards towards her throat. This typically occurs when she eats. Sometimes she will wake up in the evening with these episodes. Otherwise, she is able to use her rolling walker to ambulate throughout her house without any chest pain or shortness of breath. She is also able to ambulate throughout the grocery store with a shopping cart without any chest discomfort or significant shortness of breath. She has noticed that over the years her functional status has been declining. She has not noted any acute changes. Denies any orthopnea or loss of consciousness. Review of Systems Cardiovascular: Cardiovascular: Reports as per HPI Respiratory: Respiratory: Reports as per HPI [facility] Past Medical History Medical History Anxiety GERD (gastroesophageal reflux disease) Surgical History Surgical History H/O hemorrhoidectomy Hx of appendectomy History of tonsillectomy and adenoidectomy Family History Family History (Updated 01/27/25 @ 18:47 by Carolyn Bustillos, BROOKS) Father Alcoholism Father Heart disease Father Hypertension Mother Hypertension Social History Social History Smoking status: Never smoker Second hand tobacco smoke exposure: No Alcohol intake: never Substance use: never Substance use type: does not use Lack of Transportation: No Lack of Food: Never True Current Housing: I Do Not Have Housing Concerned About Future Housing: No Difficulty Paying Gas/Electric Bills: No Difficulty Paying for Meds: No Currently Unemployed: No Education: Associate Degree Difficulty w/ Childcare or Family Care: No Living arrangements: with family Occupation/Education: retired Gender identity (if verbalized by the patient): Female Sexual Orientation (if Verbalized by the Patient): Straight or Heterosexual Spiritual care concerns: No Agree to blood products: Yes Meds Home Medications and Allergies Home Medications ?Medication ?Instructions ?Recorded ?Confirmed ?Type ergocalciferol (vitamin D2) 1,250 1,250 mcg PO WEEKLY #12 caps 09/24/22 01/27/25 Rx mcg (50,000 unit) capsule losartan 50 mg tablet 50 mg PO DAILY #90 tabs 04/27/24 01/27/25 Rx pravastatin 20 mg tablet 20 mg PO DAILY #90 tabs 04/29/24 01/27/25 Rx alendronate 70 mg tablet 70 mg PO WEEKLY #12 tabs 08/15/24 01/27/25 Rx clonazepam 1 mg tablet 1 mg PO BID #180 tabs 11/24/24 01/27/25 Rx diltiazem HCl 60 mg 60 mg PO Q12H #180 caps 12/29/24 01/27/25 Rx capsule,extended release 12 hr calcitriol 0.25 mcg capsule 0.25 mcg PO DAILY #90 caps 01/17/25 01/27/25 Rx magnesium 200 mg tablet 400 mg PO DAILY 01/27/25 01/27/25 History multivitamin (Daily Multi-Vitamin 1 tablet PO DAILY 01/27/25 01/27/25 History tablet) omeprazole 20 mg capsule,delayed 20 mg PO DAILY 01/27/25 01/27/25 History release Allergies Allergy/AdvReac Type Severity Reaction Status Date / Time adhesive tape Allergy Severe Blister Verified 01/27/25 18:36 Vital Signs Vital Signs - 24 hr 01/27/25 12:27 01/27/25 15:48 01/27/25 16:01 Temperature 36.6 C Pulse Rate 97 74 90 Respiratory Rate 16 16 21 H Blood Pressure 153/80 H 145/76 H 152/78 H Pulse Oximetry 99 99 96 Oxygen Delivery 01/27/25 17:50 01/27/25 18:41 01/27/25 20:00 Temperature 36.7 C Pulse Rate 78 85 85 Respiratory Rate 19 18 Blood Pressure 159/77 H 172/79 H Pulse Oximetry 97 100 Oxygen Delivery 01/27/25 20:00 01/27/25 20:00 01/27/25 22:00 Temperature Pulse Rate 74 74 76 Respiratory Rate 18 Blood Pressure Pulse Oximetry 100 Oxygen Delivery Room Air 01/28/25 00:00 01/28/25 00:00 01/28/25 00:00 Temperature 36.8 C Pulse Rate 89 76 76 Respiratory Rate 16 16 Blood Pressure 123/63 Pulse Oximetry 98 98 Oxygen Delivery Room Air 01/28/25 02:00 01/28/25 04:00 01/28/25 04:00 Temperature Pulse Rate 72 71 71 Respiratory Rate 16 Blood Pressure Pulse Oximetry 98 Oxygen Delivery Room Air 01/28/25 04:00 01/28/25 05:38 01/28/25 07:50 Temperature 36.8 C 36.5 C Pulse Rate 79 76 79 Respiratory Rate 16 18 Blood Pressure 129/78 133/58 L Pulse Oximetry 99 99 Oxygen Delivery 01/28/25 08:00 01/28/25 10:00 01/28/25 11:48 Temperature 36.5 C Pulse Rate 96 99 94 Respiratory Rate 18 Blood Pressure 147/75 H Pulse Oximetry 99 Oxygen Delivery Exam Const: General: comfortable HENMT: Mouth: Yes moist mucous membranes Eyes: EOM: EOMs intact bilaterally Neck: Neck: no JVD Resp: Effort & Inspection: normal respiratory effort Auscultation: clear to auscultation bilaterally Cardio: Rate: regular rate Rhythm: regular rhythm GI: GI Palp: Yes Soft to palpation Neuro: Speech: normal speech Extrem: General: no pedal edema Results Labs and Meds 01/28/25 09:49 01/28/25 09:10 Lab results: Cardiac Enzymes 01/27/25 01/27/25 01/27/25 Range/Units 12:40 15:35 19:05 AST 29 (14-36) U/L Troponin I < 0.012 < 0.012 < 0.012 (0.000-0.034) ng/mL 01/28/25 Range/Units 09:10 AST 30 (14-36) U/L Troponin I (0.000-0.034) ng/mL Coagulation 01/27/25 Range/Units 12:40 PT 13.2 (11.1-14.7) Seconds APTT 26.6 (22.3-36.8) Seconds CBC 01/27/25 01/28/25 Range/Units 12:40 09:49 WBC 8.7 7.5 (4.5-10.0) K/mm3 RBC 4.89 4.93 (4.2-5.4) M/mm3 Hgb 13.6 13.7 (12.0-15.0) g/dL Hct 43.3 43.3 (37.0-47.0) % Plt Count 220 224 (150-375) k/mm3 Lymph # (Auto) 2.07 (0.9-3.2) K/mm3 Hardy # (Auto) 0.7 H (0.1-0.6) K/mm3 Eos # (Auto) 0.1 (0-0.3) K/mm3 Baso # (Auto) 0.1 (0.0-0.1) K/mm3 Comprehensive Metabolic Panel 01/27/25 01/28/25 Range/Units 12:40 09:10 Sodium 137 140 (137-145) mmol/L Potassium 3.9 3.9 (3.4-5.0) mmol/L Chloride 101 106 (98-107) mmol/L Carbon Dioxide 27 25 (22-30) mmol/L BUN 14 12 (7-17) mg/dL Creatinine 0.92 0.91 (0.7-1.0) mg/dL Glucose 132 H 98 (65-110) mg/dL Calcium 9.9 8.9 (8.4-10.2) mg/dL AST 29 30 (14-36) U/L ALT 19 17 (6-35) U/L Alkaline Phosphatase 103 71 (38-126) U/L Total Protein 7.4 6.8 (6.3-8.2) g/dL Albumin 4.5 4.1 (3.5-5.1) g/dL Intake and Output 01/27/25 01/28/25 01/28/25 23:59 07:59 15:59 Intake Total 600 Balance 600 Intake: Oral 600 Other: # Unmeasured Voids 4 Patient Weight 01/28/25 23:59 Weight 61.2 kg
--- NOTE | 2025-01-28 14:35 | PM.IMHP ---
H&P: HPI History of Present Illness Date/Time: 01/28/25 14:35 Chief Complaint: heartburn Narrative: [age] year old female past medical history of hypertension hyperlipidemia presented to the ER on account of chest pain. Patient reported yesterday she started having had drawn in the afternoon associated with nausea and 9/10 intensity. Denies any shortness of breath, fever no coughing no abdominal pain, diarrhea focal symptoms or lightheadedness. ED information to 4 heart rate 94, temperature 97.7?, respiratory 18, saturation 99% on room air blood pressure 147/75. Labs mostly unremarkable. Troponin negative. Chest x-ray unremarkable. Cardiology was consulted, patient was admitted for further evaluation and care. Review of Systems Review of Systems: All other systems reviewed and negative except as noted in the history above. [facility] Past Medical History Medical History Anxiety GERD (gastroesophageal reflux disease) Surgical History Surgical History H/O hemorrhoidectomy Hx of appendectomy History of tonsillectomy and adenoidectomy Family History Family History (Updated 01/27/25 @ 18:47 by Carolyn Bustillos RN) Father Alcoholism Father Heart disease Father Hypertension Mother Hypertension Social History Social History Smoking status: Never smoker Second hand tobacco smoke exposure: No Alcohol intake: never Substance use: never Substance use type: does not use Lack of Transportation: No Lack of Food: Never True Current Housing: I Do Not Have Housing Concerned About Future Housing: No Difficulty Paying Gas/Electric Bills: No Difficulty Paying for Meds: No Currently Unemployed: No Education: Associate Degree Difficulty w/ Childcare or Family Care: No Living arrangements: with family Occupation/Education: retired Gender identity (if verbalized by the patient): Female Sexual Orientation (if Verbalized by the Patient): Straight or Heterosexual Spiritual care concerns: No Agree to blood products: Yes Meds Home Medications and Allergies Home Medications ?Medication ?Instructions ?Recorded ?Confirmed ?Type ergocalciferol (vitamin D2) 1,250 1,250 mcg PO WEEKLY #12 caps 09/24/22 01/27/25 Rx mcg (50,000 unit) capsule losartan 50 mg tablet 50 mg PO DAILY #90 tabs 04/27/24 01/27/25 Rx pravastatin 20 mg tablet 20 mg PO DAILY #90 tabs 04/29/24 01/27/25 Rx alendronate 70 mg tablet 70 mg PO WEEKLY #12 tabs 08/15/24 01/27/25 Rx clonazepam 1 mg tablet 1 mg PO BID #180 tabs 11/24/24 01/27/25 Rx diltiazem HCl 60 mg 60 mg PO Q12H #180 caps 12/29/24 01/27/25 Rx capsule,extended release 12 hr calcitriol 0.25 mcg capsule 0.25 mcg PO DAILY #90 caps 01/17/25 01/27/25 Rx magnesium 200 mg tablet 400 mg PO DAILY 01/27/25 01/27/25 History multivitamin (Daily Multi-Vitamin 1 tablet PO DAILY 01/27/25 01/27/25 History tablet) omeprazole 20 mg capsule,delayed 20 mg PO DAILY 01/27/25 01/27/25 History release Allergies Allergy/AdvReac Type Severity Reaction Status Date / Time adhesive tape Allergy Severe Blister Verified 01/27/25 18:36 Vital Signs Vital Signs - 24 hr 01/27/25 15:48 01/27/25 16:01 01/27/25 17:50 Temperature Pulse Rate 74 90 78 Respiratory Rate 16 21 H 19 Blood Pressure 145/76 H 152/78 H 159/77 H Pulse Oximetry 99 96 97 Oxygen Delivery 01/27/25 18:41 01/27/25 20:00 01/27/25 20:00 Temperature 98.1 F Pulse Rate 85 85 74 Respiratory Rate 18 18 Blood Pressure 172/79 H Pulse Oximetry 100 100 Oxygen Delivery Room Air 01/27/25 20:00 01/27/25 22:00 01/28/25 00:00 Temperature 98.2 F Pulse Rate 74 76 89 Respiratory Rate 16 Blood Pressure 123/63 Pulse Oximetry 98 Oxygen Delivery 01/28/25 00:00 01/28/25 00:00 01/28/25 02:00 Temperature Pulse Rate 76 76 72 Respiratory Rate 16 Blood Pressure Pulse Oximetry 98 Oxygen Delivery Room Air 01/28/25 04:00 01/28/25 04:00 01/28/25 04:00 Temperature 98.3 F Pulse Rate 71 71 79 Respiratory Rate 16 16 Blood Pressure 129/78 Pulse Oximetry 98 99 Oxygen Delivery Room Air 01/28/25 05:38 01/28/25 07:50 01/28/25 08:00 Temperature 97.7 F Pulse Rate 76 79 96 Respiratory Rate 18 Blood Pressure 133/58 L Pulse Oximetry 99 Oxygen Delivery 01/28/25 10:00 01/28/25 11:48 01/28/25 12:00 Temperature 97.7 F Pulse Rate 99 94 87 Respiratory Rate 18 Blood Pressure 147/75 H Pulse Oximetry 99 Oxygen Delivery Exam Narrative: General: alert and comfortable Eyes: EOMI, PERRLA ENNT External ears normal, Neck is supple, no masses, Respiratory systems: Clear to auscultation Cardiovascular S1, S2, normal rhythm, no murmur, rub, or gallop; no thrill or palpable murmurs on palpation. Gastrointestinal: soft, non-tender, and non-distended abdomen with no masses; BS present Skin: no rash, lesions, ulcerations, subcutaneous nodules or induration Musculoskeletal: no abnormality and no tenderness, normal ROM Neurologic: Alert and oriented x3, non focal Mental Status Exam: normal affect H&P: Results Labs Labs: Short CBC 01/28/25 Range/Units 09:49 WBC 7.5 (4.5-10.0) K/mm3 Hgb 13.7 (12.0-15.0) g/dL Hct 43.3 (37.0-47.0) % Plt Count 224 (150-375) k/mm3 BMP 01/28/25 09:10 Sodium 140 Potassium 3.9 Chloride 106 Carbon Dioxide 25 BUN 12 Creatinine 0.91 Glucose 98 Calcium 8.9 Cardiac Enzymes 01/27/25 01/27/25 Range/Units 15:35 19:05 Troponin I < 0.012 < 0.012 (0.000-0.034) ng/mL Liver Function 01/28/25 Range/Units 09:10 Total Bilirubin 0.5 (0.2-1.3) mg/dL AST 30 (14-36) U/L ALT 17 (6-35) U/L Alkaline Phosphatase 71 (38-126) U/L Albumin 4.1 (3.5-5.1) g/dL Assessment and Plan Assessment and plan (1) Chest pain: Qualifiers: Chest pain type: unspecified Qualified Code(s): R07.9 - Chest pain, unspecified Code(s): R07.9 - Chest pain, unspecified Status: Acute Plan Chest pain Patient describes symptoms as heart burn, no SOB or radiation or lightheadedness CXR no acute changes ECHO showed normal EF with grade II diastolic dysfunction no regional wall motion abnormalities cardiology thus recommends no invasive evaluation NEw LBBB cardiology evaluated adn noted the since patient is not symptomatic and QRS complex corrects wtih heart rate thus noted no further intervention since EHCO showed normal BiV EF follow up with cardiology HTN contineu home meds HLD Contieu home meds DVT prophylaxis on Sq lovenox full code SDM: Sister Cici Fortepp Hospitalist MIPS Advance Care Plan I have confirmed that the patient's Advanced Care Plan is present, code status is documented, or surrogate decision maker is listed in patient medical record.: Yes Medication Reconciliation I have utilized all available resources to obtain, update and review the patients current medications (includes all prescriptions, OTC, herbals, cannabis, and nutritional supplements).: Yes
--- NOTE | 2025-01-28 14:55 | P.DS_ITS ---
DS: Admitting Diagnosis Discharge Date 01/28/25 Admitting Diagnosis chest pain DS: Discharge Diagnosis Discharge Diagnosis (1) Chest pain: Qualifiers: Chest pain type: unspecified Qualified Code(s): R07.9 - Chest pain, unspecified Code(s): R07.9 - Chest pain, unspecified Status: Acute (2) LBBB (left bundle branch block): Code(s): I44.7 - Left bundle-branch block, unspecified Status: Acute DS: Summary Hospital Course Hospital Course: Reason for Admission * Chest pain (described as heartburn), new left bundle branch block (LBBB), evaluation for possible acute coronary syndrome. Hospital Course by Problem 1. Chest Pain (Heartburn) * Presented with severe heartburn (12/09), associated with nausea, no SOB, no radiation. * No evidence of acute coronary syndrome: * Troponin I negative x2 * CXR unremarkable * EKG: New LBBB * Echocardiogram: Normal EF, grade II diastolic dysfunction, no regional wall motion abnormality * Symptoms resolved with conservative management. * Cardiology recommended no invasive evaluation. 2. New Left Bundle Branch Block (LBBB) * LBBB noted to be rate-dependent (appears at HR >90, resolves at lower HR). * No associated symptoms (no syncope, no heart failure). * Cardiology: No further inpatient workup; outpatient follow-up recommended. 3. Hypertension * Chronic, well-controlled on home regimen. * Continued losartan 50 mg daily. 4. Hyperlipidemia * Chronic, continued pravastatin 20 mg daily. 5. GERD * Chronic, managed with omeprazole 20 mg daily. 6. Anxiety * Chronic, continued clonazepam 1 mg BID. 7. DVT Prophylaxis * Received subcutaneous enoxaparin during admission. 8. Other Chronic Medications * Alendronate 70 mg weekly (osteoporosis) * Calcitriol 0.25 mcg daily, ergocalciferol 1,250 mcg (50,000 units) weekly, magnesium 400 mg daily, multivitamin daily 9. Allergies * Severe blistering with adhesive tape Hospital Course Summary * Remained hemodynamically stable and asymptomatic after initial presentation. * No further chest pain, shortness of breath, or acute events. * No evidence of acute VA or decompensated heart failure. * Discharged in stable condition. Discharge Medications * Losartan 50 mg PO daily * Pravastatin 20 mg PO daily * Diltiazem 60 mg PO Q12H * Alendronate 70 mg PO weekly * Clonazepam 1 mg PO BID * Calcitriol 0.25 mcg PO daily * Ergocalciferol 1,250 mcg (50,000 units) PO weekly * Magnesium 400 mg PO daily * Multivitamin PO daily * Omeprazole 20 mg PO daily Discharge Instructions & Follow-Up * Continue all home medications as above. * Outpatient cardiology follow-up for LBBB and diastolic dysfunction. * Monitor for recurrence of chest pain, SOB, or new symptoms. * Return to ED for any acute changes. * Continue to live with family. * F/u [facility] PCP in 3-5 days Time Spent with Patient Time attestation: Total time spent providing and/or coordinating discharge services: DS: Data Data Completed and Pending Labs on day of discharge: Labs from last 24 hours 01/28/25 01/28/25 01/27/25 09:49 09:10 19:05 WBC 7.5 RBC 4.93 Hgb 13.7 Hct 43.3 MCV 87.8 MCH 27.8 MCHC 31.6 L RDW 13.7 Plt Count 224 MPV 10.4 Sodium 140 Potassium 3.9 Chloride 106 Carbon Dioxide 25 Anion Gap 9 BUN 12 Creatinine 0.91 Estim Creat Clear Calc 30 Estimated GFR 58 L Glucose 98 Calcium 8.9 Magnesium 2.2 Total Bilirubin 0.5 AST 30 ALT 17 Alkaline Phosphatase 71 Troponin I < 0.012 Total Protein 6.8 Albumin 4.1 01/27/25 15:35 WBC RBC Hgb Hct MCV MCH MCHC RDW Plt Count MPV Sodium Potassium Chloride Carbon Dioxide Anion Gap BUN Creatinine Estim Creat Clear Calc Estimated GFR Glucose Calcium Magnesium Total Bilirubin AST ALT Alkaline Phosphatase Troponin I < 0.012 Total Protein Albumin Discharge Plan Discharge Attending physician on discharge: Louis Ambrocio Consulting providers: Viraj Burt; Latoya Deal Discharging Clinician: Louis Ambrocio Anticipated Discharge Date/Time: 01/28/25 14:29 Patient Disposition: Home Activity: as tolerated Diet: as tolerated and heart healthy Patient Instructions: Antibiotic Form, Chest Pain (GEN), GERD (Gastroesophageal Reflux Disease) (GEN), Fall Prevention (GEN) Patient Language: Sinhala Stand Alone Forms: General Discharge Information Follow-up/Referrals: Latoya Deal DO [Physician, Cardiology] Referral Note: F/u with Cardiology as instructed PHYSICIAN,[facility] [Primary Care Provider, Internal Medicine] Referral Note: F/u with PCP in 3-5 days Discharge Medications: Continued omeprazole 20 mg capsule,delayed release(DR/EC) 20 mg PO DAILY magnesium 200 mg tablet 400 mg PO DAILY multivitamin [Daily Multi-Vitamin] Tablet 1 tablet PO DAILY ergocalciferol (vitamin D2) 1,250 mcg (50,000 unit) capsule 1,250 mcg PO WEEKLY Qty: 12 1RF losartan 50 mg tablet 50 mg PO DAILY Qty: 90 3RF pravastatin 20 mg tablet 20 mg PO DAILY Qty: 90 3RF alendronate 70 mg tablet 70 mg PO WEEKLY Qty: 12 6RF Patient Comments: takes on Sundays Rx Instructions: Take upon arising with full glass of water and nothing po for 60 minutes after dosing clonazepam 1 mg tablet 1 mg PO BID Qty: 180 0RF diltiazem HCl 60 mg capsule,extended release 12 hr 60 mg PO Q12H Qty: 180 1RF calcitriol 0.25 mcg capsule 0.25 mcg PO DAILY Qty: 90 0RF Date of admission: 01/27/25 17:19 Primary Care Provider: PHYSICIAN,[facility] Admitting Provider: Lucho Roca Attending physician on admission: Lucho Roca Condition: Stable
--- NOTE | 2025-01-28 14:55 | PM.DS ---
DS: Admitting Diagnosis Discharge Date 01/28/25 Admitting Diagnosis chest pain DS: Discharge Diagnosis Discharge Diagnosis (1) Chest pain: Qualifiers: Chest pain type: unspecified Qualified Code(s): R07.9 - Chest pain, unspecified Code(s): R07.9 - Chest pain, unspecified Status: Acute (2) LBBB (left bundle branch block): Code(s): I44.7 - Left bundle-branch block, unspecified Status: Acute DS: Summary Hospital Course Hospital Course: Reason for Admission Chest pain (described as heartburn), new left bundle branch block (LBBB), evaluation for possible acute coronary syndrome. Hospital Course by Problem 1. Chest Pain (Heartburn) Presented with severe heartburn (12/09), associated with nausea, no SOB, no radiation. No evidence of acute coronary syndrome: Troponin I negative x2 CXR unremarkable EKG: New LBBB Echocardiogram: Normal EF, grade II diastolic dysfunction, no regional wall motion abnormality Symptoms resolved with conservative management. Cardiology recommended no invasive evaluation. 2. New Left Bundle Branch Block (LBBB) LBBB noted to be rate-dependent (appears at HR >90, resolves at lower HR). No associated symptoms (no syncope, no heart failure). Cardiology: No further inpatient workup; outpatient follow-up recommended. 3. Hypertension Chronic, well-controlled on home regimen. Continued losartan 50 mg daily. 4. Hyperlipidemia Chronic, continued pravastatin 20 mg daily. 5. GERD Chronic, managed with omeprazole 20 mg daily. 6. Anxiety Chronic, continued clonazepam 1 mg BID. 7. DVT Prophylaxis Received subcutaneous enoxaparin during admission. 8. Other Chronic Medications Alendronate 70 mg weekly (osteoporosis) Calcitriol 0.25 mcg daily, ergocalciferol 1,250 mcg (50,000 units) weekly, magnesium 400 mg daily, multivitamin daily 9. Allergies Severe blistering with adhesive tape Hospital Course Summary Remained hemodynamically stable and asymptomatic after initial presentation. No further chest pain, shortness of breath, or acute events. No evidence of acute DC or decompensated heart failure. Discharged in stable condition. Discharge Medications Losartan 50 mg PO daily Pravastatin 20 mg PO daily Diltiazem 60 mg PO Q12H Alendronate 70 mg PO weekly Clonazepam 1 mg PO BID Calcitriol 0.25 mcg PO daily Ergocalciferol 1,250 mcg (50,000 units) PO weekly Magnesium 400 mg PO daily Multivitamin PO daily Omeprazole 20 mg PO daily Discharge Instructions & Follow-Up Continue all home medications as above. Outpatient cardiology follow-up for LBBB and diastolic dysfunction. Monitor for recurrence of chest pain, SOB, or new symptoms. Return to ED for any acute changes. Continue to live with family. F/u wtih PCP in 3-5 days Time Spent with Patient Time attestation: Total time spent providing and/or coordinating discharge services: DS: Data Data Completed and Pending Labs on day of discharge: Labs from last 24 hours 01/28/25 01/28/25 01/27/25 09:49 09:10 19:05 WBC 7.5 RBC 4.93 Hgb 13.7 Hct 43.3 MCV 87.8 MCH 27.8 MCHC 31.6 L RDW 13.7 Plt Count 224 MPV 10.4 Sodium 140 Potassium 3.9 Chloride 106 Carbon Dioxide 25 Anion Gap 9 BUN 12 Creatinine 0.91 Estim Creat Clear Calc 30 Estimated GFR 58 L Glucose 98 Calcium 8.9 Magnesium 2.2 Total Bilirubin 0.5 AST 30 ALT 17 Alkaline Phosphatase 71 Troponin I < 0.012 Total Protein 6.8 Albumin 4.1 01/27/25 15:35 WBC RBC Hgb Hct MCV MCH MCHC RDW Plt Count MPV Sodium Potassium Chloride Carbon Dioxide Anion Gap BUN Creatinine Estim Creat Clear Calc Estimated GFR Glucose Calcium Magnesium Total Bilirubin AST ALT Alkaline Phosphatase Troponin I < 0.012 Total Protein Albumin Discharge Plan Discharge Attending physician on discharge: Louis Ambrocio Consulting providers: Viraj Burt; Latoya Deal Discharging Clinician: Louis Ambrocio Anticipated Discharge Date/Time: 01/28/25 14:29 Patient Disposition: Home Activity: as tolerated Diet: as tolerated and heart healthy Patient Instructions: Antibiotic Form, Chest Pain (GEN), GERD (Gastroesophageal Reflux Disease) (GEN), Fall Prevention (GEN) Patient Language: Nicaraguan Stand Alone Forms: General Discharge Information Follow-up/Referrals: Latoya Deal DO [Physician, Cardiology] Referral Note: F/u with Cardiology as instructed PHYSICIAN,ALTERATION TAILOR [Primary Care Provider, Internal Medicine] Referral Note: F/u with PCP in 3-5 days Discharge Medications: Continued omeprazole 20 mg capsule,delayed release(DR/EC) 20 mg PO DAILY magnesium 200 mg tablet 400 mg PO DAILY multivitamin [Daily Multi-Vitamin] Tablet 1 tablet PO DAILY ergocalciferol (vitamin D2) 1,250 mcg (50,000 unit) capsule 1,250 mcg PO WEEKLY Qty: 12 1RF losartan 50 mg tablet 50 mg PO DAILY Qty: 90 3RF pravastatin 20 mg tablet 20 mg PO DAILY Qty: 90 3RF alendronate 70 mg tablet 70 mg PO WEEKLY Qty: 12 6RF Patient Comments: takes on Sundays Rx Instructions: Take upon arising with full glass of water and nothing po for 60 minutes after dosing clonazepam 1 mg tablet 1 mg PO BID Qty: 180 0RF diltiazem HCl 60 mg capsule,extended release 12 hr 60 mg PO Q12H Qty: 180 1RF calcitriol 0.25 mcg capsule 0.25 mcg PO DAILY Qty: 90 0RF Date of admission: 01/27/25 17:19 Primary Care Provider: PHYSICIAN,ALTERATION TAILOR Admitting Provider: Lucho Roca Attending physician on admission: Lucho Roca Condition: Stable
== END 2025-01-28 15:02 | disposition home or self-care (01) ==
LOC: ANHED 17:18 → ANHIMU 18:17
PROVIDERS: Admitting Provider Family Medicine; Emergency Provider Family Medicine; Visit Provider Internal Medicine
DX: R07.9 Chest pain, unspecified (principal); R11.0 Nausea; E78.5 Hyperlipidemia, unspecified; I44.0 Atrioventricular block, first degree; I44.7 Left bundle-branch block, unspecified; I10 Essential (primary) hypertension; F41.9 Anxiety disorder, unspecified; K21.9 Gastro-esophageal reflux disease without esophagitis; Z79.1 Long term (current) use of non-steroidal anti-inflammatories (NSAID); Z79.83 Long term (current) use of bisphosphonates; Z90.49 Acquired absence of other specified parts of digestive tract; Z82.49 Family history of ischemic heart disease and other diseases of the circulatory system
CPT/HCPCS: 36415; 71046; 80053; 83690; 83735; 84484; 85025; 85027; 85610; 85730; 93005; 93306; 96372; 96374; 96376; 99285; A9270; G0378; J1650; J2470

== ENCOUNTER 2025-03-19 07:05 | Outpatient (CLI) | payer MEDICARE, OTHER, SELFPAY ==
--- NOTE | ~2025-03-19 | NM_ITS ---
EXAMINATION: NM tre stress w perfusion DATE: 03/19/2025 10:35 INDICATION: Left bundle branch block TECHNIQUE: Rest images were obtained following intravenous administration of 11.8 mCi Tc99m tetrofosmin (Myoview). The patient was infused intravenously with Lexiscan (regadenoson). Then, 34.7 mCi Tc99m tetrofosmin (Myoview) was administered intravenously, and stress images were obtained. Data was mayra nstructed into short axis and horizontal and vertical long axis SPECT images. Gated SPECT images were also obtained. COMPARISON: None. FINDINGS: There is no definite reversible or fixed perfusion abnormality to suggest ischemia or infarction. There is no segmental wall motion abnormality. Left ventricular ejection fraction measures 68%. IMPRESSION: 1. No definite ischemia or infarct. 2. Normal left ventricular ejection fraction measuring 68%. Reviewed, dictated and finalized at location A. ANICAL DETAILER
--- NOTE | 2025-03-19 08:40 | EST_ITS ---
Patient Info Name: Saskia Randle Age: 89 years : 1935 Gender: Female Ht: 61 in Wt: 133 lbs BSA: 1.62 m2 HR: 73 bpm BP: 146 / 76 mmHg Exam Date: 03/19/2025 8:40 AM Patient Status: O Admit Date: 03/19/2025 Exam Type: CA stress tre w NM A regadenoson stress test was performed. Staff Referring Physician: Todd Saul DO Attending Provider: Todd Saul DO Exercise Technologist: Giselle Castañeda Exercise Physician: Todd Saul DO Summary 1. 1. Negative lexiscan stress test for ischemic ST changes by ECG criteria. 2. 2. Stable hemodynamics throughout the test. 3. 3. Nuclear scan to follow and will be reported separately. Please correlate with it. 4. 4. Patient informed of the above results. Protocol: Lexiscan Stress ECG Details Stage: REST Duration (min): 1 min : 10 sec HR (bpm): 73 SBP (mmHg): 146 DBP (mmHg): 76 Stage: REST Duration (min): 5 min : 18 sec HR (bpm): 75 SBP (mmHg): 146 DBP (mmHg): 76 Stage: REST Duration (min): 5 min : 51 sec HR (bpm): 75 SBP (mmHg): 146 DBP (mmHg): 76 Stage: STAGE 1 Duration (min): 1 min : 0 sec HR (bpm): 101 SBP (mmHg): 137 DBP (mmHg): 72 Stage: RECOVERY Duration (min): 1 min : 0 sec HR (bpm): 92 SBP (mmHg): 137 DBP (mmHg): 72 Stage: RECOVERY Duration (min): 2 min : 0 sec HR (bpm): 90 SBP (mmHg): 137 DBP (mmHg): 72 Stage: RECOVERY Duration (min): 3 min : 0 sec HR (bpm): 85 SBP (mmHg): 136 DBP (mmHg): 72 Stage: RECOVERY Duration (min): 4 min : 0 sec HR (bpm): 101 SBP (mmHg): 136 DBP (mmHg): 72 Stage: RECOVERY Duration (min): 5 min : 0 sec HR (bpm): 99 SBP (mmHg): 138 DBP (mmHg): 72 Stage: RECOVERY Duration (min): 5 min : 12 sec HR (bpm): 99 SBP (mmHg): 138 DBP (mmHg): 72 Rest HR: 75 bpm Peak HR: 102 bpm Rest Sys BP: 146 mmHg Peak Sys BP: 138 mmHg Max Pred HR: 133 bpm % Max Pred HR: 77 % Target HR: 113 bpm Max RPP: 14,076 bpm*mmHg Termination Reason: Completed protocol Cardiac Symptoms: Shortness of breath Total Time: 1 min : 0 sec Rest Martinez BP: 76 mmHg Peak Martinez BP: 72 mmHg Total Dose: 0.4 mg Resting ECG Sinus rhythm. Stress ECG No ST changes. Arrhythmias None. Report Signatures
== END 2025-03-19 07:06 | disposition home or self-care (01) ==
LOC: ANHCARD 07:08
PROVIDERS: PCP Family Medicine; Visit Provider Internal Medicine Cardiovascular Disease
DX: I44.7 Left bundle-branch block, unspecified (principal)
CPT/HCPCS: 78452; 93017; A9502; J2785